=== PATIENT | male | born 1950 | race Hispanic/Latino ===

== ENCOUNTER 2020-06-24 22:31 | Inpatient (IN) | payer MEDICARE, MEDICAID, SELFPAY ==
--- NOTE | ~2020-06-24 | XR_ITS ---
EXAMINATION: XR chest 1V portable INDICATION: Midsternal chest pain and weakness TECHNIQUE: Portable AP chest at 2257 hours COMPARISON: 08/17/2017 FINDINGS: There are patchy opacities throughout the lungs, with a mid and lower lung zone predominanc e. The heart size is upper limits of normal for technique. No pleural effusion or pneumothorax is aroldo ntified. IMPRESSION: 1. Patchy bilateral opacities which could reflect pneumonia versus pulmonary edema. Reviewed, dictated and finalized at location A. IMPRESSION: 1. Patchy bilateral opacities which could reflect pneumonia versus pulmonary ed charlie.
[2020-06-24 22:34] VITALS: BP 126/89; PULSE 87; RESP 12; TEMP 36.6; O2SAT 100
--- NOTE | 2020-06-24 22:48 | ECG_ITS ---
Measurements Intervals [place] Rate: 79 P: 28 OH: 116 QRS: -64 QRSD: 90 T: 46 QT: 389 QTc: 448 Interpretive Statements SINUS RHYTHM WITH SHORT [place] INTERVAL LEFT AXIS DEVIATION INCOMPLETE RIGHT BUNDLE BRANCH BLOCK BASELINE ARTIFACT- I, II, III, AVR, AVL, AVF, V1-V6 BORDERLINE ECG Electronically Signed On 06-25-2020 6:39:53 CDT by Eron Suarez D.O.
[2020-06-24 23:13] LABS: Basophils Percent Auto 0.2 % (0.2-1.2); Eosinophils Absolute Auto 0.1 K/mm3 (0-0.3); Hematocrit 41.4 % (42.0-52.0); Hemoglobin 14.1 g/dL (14.0-18.0); Immature Granulocyte Absolute 0.02 K/mm3 (0.00-0.031); Immature Granulocyte Percent A 0.4 % (0-0.5); Immature Platelet Fraction Pct 8.1 % (0.9-11.2); Lymphocytes Absolute Auto 1.63 K/mm3 (0.9-3.2); Lymphocytes Percent Auto 31.7 % (18.3-44.2); Mean Corpuscular HGB Conc 34.1 g/dl (32-36); Mean Corpuscular Hemoglobin 33.3 pg (26-34); Mean Corpuscular Volume 97.6 fl (80-100); Mean Platelet Volume 10.9 fl (7.4-10.4); Monocytes Absolute Auto 0.6 K/mm3 (0.1-0.6); Monocytes Percent Auto 11.5 % (2.6-8.5); Neutrophils Absolute Auto 2.8 K/mm3 (1.3-6.7); Neutrophils Percent Auto 55.2 % (45.5-73.1); Platelet Count Result 109 k/mm3 (150-375); Red Blood Count 4.24 M/mm3 (4.6-6.20); Red Cell Distribution Width 12.4 % (11.5-14.5); White Blood Count 5.1 K/mm3 (4.5-10.0)
[2020-06-24 23:21] LABS: Prothrombin Time 13.8 Seconds (11.1-14.7)
[2020-06-24 23:22] LABS: Partial Thromboplastin Time 26.6 SECONDS (22.3-36.8)
[2020-06-24 23:26] LABS: Acetaminophen < 10 ug/mL (10-30); Ethanol 145 mg/dL (<10); Salicylate 3.1 mg/dL (2-20)
[2020-06-24 23:27] LABS: Alanine Aminotransferase 64 U/L (4-50); Albumin Level 4.4 g/dL (3.5-5.1); Alkaline Phosphatase 108 U/L (38-126); Anion Gap 7 mmol/L (8-16); Aspartate Amino Transferase 80 U/L (17-59); Bilirubin,Total 0.7 mg/dL (0.2-1.3); Blood Urea Nitrogen 16 mg/dL (9-20); Calcium 9.4 mg/dL (8.4-10.2); Carbon Dioxide 30 mmol/L (22-30); Chloride 104 mmol/L (98-107); Estimated Glomerular Filt Rate > 60; Glucose 99 mg/dL (75-110); Lipase 80 U/L (23-300); Potassium 4.1 mmol/L (3.4-5.0); Sodium 141 mmol/L (137-145)
[2020-06-24 23:39] LABS: NT Pro B Type Natriuretic Pept 102 pg/mL (5-100); Troponin I < 0.012 ng/mL (0.000-0.034)
[2020-06-24 23:58] LABS: Add Urine Microscopic? YES; Appearance Urine Cloudy (Clear); Bacteria Urine Trace /hpf; Bilirubin Urine Negative (Negative); Blood Urine Negative (Negative); Calcium Oxalate Crystals Urine Present /hpf; Color Urine Amber (Yellow); Glucose Urine UA Negative (Negative); Ketones Urine Negative (Negative); Leukocyte Esterase Ur 1+ LEU/UL (Negative); Mucus Urine Heavy /lpf; Nitrate Urine Negative (Negative); Protein Urine 1+ mg/dL (Negative); Specific Grav Ur 1.016 (1.001-1.035); Squamous Epithelial Cell Urine Rare /hpf (Few)
[2020-06-25] VITALS (12 sets, daily range): BP systolic 124–164; BP diastolic 84–101; PULSE 60–91; RESP 15–22; TEMP 36.5–36.8; O2SAT 95–100; BMI 22.4
[2020-06-25 00:16] LABS: Amphetamine Screen Urine Negative (Negative); Barbiturate Screen Urine Negative (Negative); Benzodiazepines Screen Urine Negative (Negative); Cannabinoid Screen Urine Positive (Negative); Cocaine Screen Urine Negative (Negative); Methadone Screen Urine Negative (Negative); Opiate Screen Urine Negative (Negative); Phencyclidine Screen Urine Negative (Negative)
--- NOTE | 2020-06-25 01:03 | ED.GENADULT ---
HPI - General Adult General Chief complaint: Chest Pain Stated complaint: chest pain Time Seen by Provider: 06/24/20 23:19 History of Present Illness HPI narrative: Patient 69-year-old gentleman who presents the emergency department with chief complaint of chest pain. The patient states that since about 8:00 tonight he started having discomfort in his chest. Patient states is not worsened by anything nor is it improved by anything patient states that he does have history of a heart attack before in the past states that he also was admitted to [place] about a month ago where he had the flu the patient states that he has had a cough since then that has been productive. Patient states that he also has been drinking today and states that he has been having thoughts of hurting himself. Patient states that he would use a firearm. Related Data Allergies Allergy/AdvReac Type Severity Reaction Status Date / Time No Known Allergies Allergy Mild Verified 08/17/17 19:00 Review of Systems Review of Systems: Narrative: A 10 system review of systems was completed on the patient and is negative except for what is stated in the HPI. Nursing and ancillary documentation was reviewed. PMFSH Social History Social History Gender identity (if verbalized by the patient): Male Comments Past medical history significant for cardiac disease, depression Social history the patient reports drinking alcohol Exam Narrative: Exam Narrative: GENERAL: Well-appearing, well-nourished, and in no acute distress. HEAD: Normocephalic, atraumatic. EYES: PERRLA and EOMI. ENT: Nares clear, no rhinorrhea or epistaxis. Mucous membranes moist. NECK: Supple. CHEST: Clear to auscultation. No respiratory distress. HEART: Regular rate and rhythm. No murmur heard. Normal peripheral pulses. ABDOMEN: Soft, nontender, nondistended, normal active bowel sounds. EXTREMITIES: Normal range of motion. No edema. SKIN: Warm, dry, no rash. NEURO: No focal deficits. Alert and oriented x3. PSYCH: Normal mood and affect. Course Course Emergency Course: Patient's case was discussed with the [place] transfer center and per Zach Bourgeois rn nursing supervisor sign shop the [place] does not currently have the resources capable of taking care of the patient tonight and recommended attempting to call for transfer at a later time The case was discussed with the hospitalist and they would like cefepime and doxycycline for potential healthcare associated pneumonia Vital Signs Vital signs: Vital Signs Temperature 36.6 C 06/24/20 22:34 Pulse Rate 87 06/24/20 22:34 Respiratory Rate 12 06/24/20 22:34 Blood Pressure 126/89 06/24/20 22:34 Pulse Oximetry 100 06/24/20 22:34 Temperature 36.6 C 06/24/20 22:34 Pulse Rate 66 06/25/20 00:26 Respiratory Rate 15 06/25/20 00:26 Blood Pressure 129/88 06/25/20 00:26 Pulse Oximetry 100 06/25/20 00:26 Medical Decision Making Vital Signs Vital Signs: Vital Signs Temperature 36.6 C 06/24/20 22:34 Pulse Rate 87 06/24/20 22:34 Respiratory Rate 12 06/24/20 22:34 Blood Pressure 126/89 06/24/20 22:34 Pulse Oximetry 100 06/24/20 22:34 Temperature 36.6 C 06/24/20 22:34 Pulse Rate 66 06/25/20 00:26 Respiratory Rate 15 06/25/20 00:26 Blood Pressure 129/88 06/25/20 00:26 Pulse Oximetry 100 06/25/20 00:26 Lab Data Result diagrams: 06/24/20 22:59 06/24/20 22:59 Labs: Lab Results 06/24/20 06/24/20 06/24/20 Range/Units 22:59 22:59 22:59 WBC 5.1 (4.5-10.0) K/mm3 RBC 4.24 L (4.6-6.20) M/mm3 Hgb 14.1 (14.0-18.0) g/dL Hct 41.4 L (42.0-52.0) % MCV 97.6 (80-100) fl MCH 33.3 (26-34) pg MCHC 34.1 (32-36) g/dl RDW 12.4 (11.5-14.5) % Plt Count 109 L (150-375) k/mm3 MPV 10.9 H (7.4-10.4) fl Immature Gran % (Auto) 0.4 (0-0.5) % Neut % (Auto) 55.2 (45.5-73.1) % Lymph % (Auto) 31.7 (18.3-44.2) % [place] % (Auto
--- NOTE | 2020-06-25 01:14 | PC.NURSE ---
Spoke with Alex[facility] at [facility]. Per Zach Bourgeois RN/Nursing Gear Tooth Lapping Machine Operator there is no bed with a sitter available.
[2020-06-25 02:13] LABS: Troponin I < 0.012 ng/mL (0.000-0.034)
[2020-06-25] MEDS: SODIUM CHLORIDE 0.9% IV 1,000 ML 125 ML IV CONT ×3 (02:31→18:29)
--- NOTE | 2020-06-25 03:15 | ADMIMU ---
This patient, Carlos Atkins, was admitted to IMU status, and placed in Intensive Care Unit-6 at 0310 on 06/25/20. Patient/family oriented to hospital policies and general routines including ID bracelet, bed and alarms, visiting hours, pain management, procedures, bathroom and other care routines, personal items, smoking policy, room service/diet, and visiting hours. Valuables list has been completed. Information on how to activate the Rapid Response Team has been discussed. Patient/Family are encouraged to report perceived risks to care and to ask questions if they do not understand what they are told or what they should do.
[2020-06-25 08:01] LABS: Troponin I < 0.012 ng/mL (0.000-0.034)
[2020-06-25] MEDS: ASPIRIN 81 MG CHEWABLE TABLET PO (08:38)
[2020-06-25] MEDS: SERTRALINE HCL 50 MG TABLET PO (09:50)
[2020-06-25] MEDS: busPIRone HCL 10 MG TABLET PO ×3 (09:50→17:22)
[2020-06-25] MEDS: CEFEPIME 0.5 GM in DEXTROSE 5% IN WATER 50 ML IVPB (13:26)
--- NOTE | 2020-06-25 16:12 | PM.IMHP ---
H&P: HPI History of Present Illness Date/Time: 06/25/20 16:12 patient is 69-year-old with history of coronary artery disease and history of alcohol abuse presented to emergency department with a complaint of chest pain patient 3 sets of cardiac enzymes are negative, there was no acute change on EKG myocardial infarction was ruled, patient also stated that he wants to commit suicide with fire arms, patient further states that he has history DT, the complaints chest pain and palpitation, will continue to monitor the patient will place the patient on on telemetry if remains clinically stable and there are no significant change in his telemetry chest x-ray showed patchy infiltrate suspect community-acquired pneumonia patient is being treated Rocephin azithromycin will continue, will continue to monitor patient watch for withdrawal and sign of any DT further recommendation to follow, patient had sitter with him. Chief Complaint: Chest pain and suicidal ideation Review of Systems Review of Systems: All systems reviewed & are unremarkable except as noted in HPI and below PMFSH Family History Family History (Updated 06/25/20 @ 03:45 by Guero Sanders RN) Other Unknown family medical history Social History Social History Smoking packs per day: 0.25 Smoking cigarettes per day: 5.0 Years smoked: 40 Smoking pack-years: 10.00 Smoking status: Current every day smoker Tobacco type: cigarettes Alcohol intake: current Drinks per week: 1 Substance use: current Substance use type: marijuana Gender identity (if verbalized by the patient): Male Sexual Orientation (if Verbalized by the Patient): Straight or Heterosexual Spiritual care concerns: No Meds Home Medications and Allergies Home Medications Medication Instructions Recorded Confirmed Type buspirone [BuSpar] 10 mg PO TID 06/25/20 06/25/20 History sertraline [Zoloft] 50 mg PO DAILY 06/25/20 06/25/20 History trazodone 100 mg PO HS PRN 06/25/20 06/25/20 History Allergies Allergy/AdvReac Type Severity Reaction Status Date / Time No Known Allergies Allergy Mild Verified 08/17/17 19:00 Vital Signs Vital Signs - 24 hr 06/24/20 22:34 06/25/20 00:26 06/25/20 02:10 Temperature 97.9 F Pulse Rate 87 66 91 Respiratory Rate 12 15 22 H Blood Pressure 126/89 129/88 124/84 Pulse Oximetry 100 100 96 06/25/20 03:16 06/25/20 03:52 06/25/20 04:00 Temperature 97.7 F Pulse Rate 78 76 81 Respiratory Rate 18 17 18 Blood Pressure 142/84 H Pulse Oximetry 97 97 97 06/25/20 04:05 06/25/20 06:00 06/25/20 08:00 Temperature 98.3 F Pulse Rate 88 69 Respiratory Rate 18 Blood Pressure 136/101 H Pulse Oximetry 99 98 06/25/20 08:35 06/25/20 12:00 Temperature Pulse Rate 69 Respiratory Rate Blood Pressure 151/97 H Pulse Oximetry Exam Narrative: Exam Narrative: Appears chronically ill older than his age Patient is comfortable, NAD HEENT: eyes are clear and none icteric LUNGS:CTA HEART: RR S1S2 ABD: BS+, Soft and nontender Lower extremities: no edema SKIN: nonjaundiced Neuro: grossly intact. H&P: Results Labs Labs: Short CBC 06/24/20 Range/Units 22:59 WBC 5.1 (4.5-10.0) K/mm3 Hgb 14.1 (14.0-18.0) g/dL Hct 41.4 L (42.0-52.0) % Plt Count 109 L (150-375) k/mm3 BMP 06/24/20 22:59 Sodium 141 Potassium 4.1 Chloride 104 Carbon Dioxide 30 BUN 16 Creatinine 0.80 Glucose 99 Calcium 9.4 Cardiac Enzymes 06/24/20 06/25/20 06/25/20 Range/Units 22:59 01:33 07:34 Troponin I < 0.012 < 0.012 < 0.012 (0.000-0.034) ng/mL Liver Function 06/24/20 Range/Units 22:59 Total Bilirubin 0.7 (0.2-1.3) mg/dL AST 80 H (17-59) U/L ALT 64 H (4-50) U/L Alkaline Phosphatase 108 (38-126) U/L Albumin 4.4 (3.5-5.1) g/dL Urine 06/24/20 Range/Units 23:37 Urine Color Lynnette (Yellow) Urine Appearance Cloudy H (Clear) Urine pH 5.0 (5.
[2020-06-25 20:07] LABS: SARS-CoV-2 RNA PCR Negative
[2020-06-26] VITALS: BP 136/87; PULSE 67; RESP 14; TEMP 36.9; O2SAT 94
[2020-06-26] MEDS: CEFEPIME 0.5 GM in DEXTROSE 5% IN WATER 50 ML IVPB ×2 (02:03→14:50)
[2020-06-26] MEDS: SODIUM CHLORIDE 0.9% IV 1,000 ML 125 ML IV CONT ×2 (02:03→12:46)
[2020-06-26 04:00] VITALS: PULSE 54
[2020-06-26 04:45] LABS: Basophils Percent Auto 0.3 % (0.2-1.2); Eosinophils Absolute Auto 0.1 K/mm3 (0-0.3); Eosinophils Percent Auto 2.6 % (0-4.4); Hematocrit 39.3 % (42.0-52.0); Hemoglobin 13.2 g/dL (14.0-18.0); Immature Granulocyte Absolute 0.02 K/mm3 (0.00-0.031); Immature Granulocyte Percent A 0.7 % (0-0.5); Immature Platelet Fraction Pct 9.1 % (0.9-11.2); Lymphocytes Absolute Auto 1.07 K/mm3 (0.9-3.2); Lymphocytes Percent Auto 34.9 % (18.3-44.2); Mean Corpuscular HGB Conc 33.6 g/dl (32-36); Mean Corpuscular Hemoglobin 32.2 pg (26-34); Mean Corpuscular Volume 95.9 fl (80-100); Mean Platelet Volume 10.7 fl (7.4-10.4); Monocytes Absolute Auto 0.4 K/mm3 (0.1-0.6); Monocytes Percent Auto 13.7 % (2.6-8.5); Neutrophils Absolute Auto 1.5 K/mm3 (1.3-6.7); Neutrophils Percent Auto 47.8 % (45.5-73.1); Platelet Count Result 76 k/mm3 (150-375); Red Cell Distribution Width 12.2 % (11.5-14.5); White Blood Count 3.1 K/mm3 (4.5-10.0)
[2020-06-26 05:14] LABS: Alanine Aminotransferase 48 U/L (4-50); Albumin Level 3.7 g/dL (3.5-5.1); Alkaline Phosphatase 83 U/L (38-126); Anion Gap 2 mmol/L (8-16); Aspartate Amino Transferase 59 U/L (17-59); Bilirubin,Total 1.1 mg/dL (0.2-1.3); Blood Urea Nitrogen 11 mg/dL (9-20); Calcium 9.2 mg/dL (8.4-10.2); Carbon Dioxide 32 mmol/L (22-30); Chloride 105 mmol/L (98-107); Estimated CRCL calculation 84 ml/min; Estimated Glomerular Filt Rate > 60; Glucose 116 mg/dL (75-110); Magnesium 1.6 mg/dL (1.6-2.3); Potassium 4.4 mmol/L (3.4-5.0); Sodium 139 mmol/L (137-145)
[2020-06-26 08:00] VITALS: BP 136/89; PULSE 55; PULSE 61; RESP 12; TEMP 36.8; O2SAT 100
[2020-06-26] MEDS: busPIRone HCL 10 MG TABLET PO ×3 (08:19→17:18)
[2020-06-26] MEDS: ASPIRIN 81 MG CHEWABLE TABLET PO (08:19)
[2020-06-26] MEDS: SERTRALINE HCL 50 MG TABLET PO (08:20)
[2020-06-26 12:00] VITALS: PULSE 56
--- NOTE | 2020-06-26 14:58 | PM.IMPN ---
Progress Note: A&P Assessment and Plan (1) Chest pain: Qualifiers: Chest pain type: unspecified Qualified Code(s): R07.9 - Chest pain, unspecified Code(s): R07.9 - Chest pain, unspecified Status: Acute (2) Pneumonia: Qualifiers: Laterality: unspecified laterality Lung location: unspecified part of lung Pneumonia type: due to unspecified organism Qualified Code(s): J18.9 - Pneumonia, unspecified organism Code(s): J18.9 - Pneumonia, unspecified organism Status: Acute (3) Suicidal ideation: Code(s): R45.851 - Suicidal ideations Status: Acute (4) 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 combat: Code(s): F43.12 - Post-traumatic stress disorder, chronic Status: Acute Additional Plan 06/25/20 16:12 patient is 69-year-old with history of coronary artery disease and history of alcohol abuse presented to emergency department with a complaint of chest pain patient 3 sets of cardiac enzymes are negative, there was no acute change on EKG myocardial infarction was ruled, patient also stated that he wants to commit suicide with fire arms, patient further states that he has history DT, the complaints chest pain and palpitation, will continue to monitor the patient will place the patient on on telemetry if remains clinically stable and there are no significant change in his telemetry chest x-ray showed patchy infiltrate suspect community-acquired pneumonia patient is being treated Rocephin azithromycin will continue, will continue to monitor patient watch for withdrawal and sign of any DT further recommendation to follow, patient had sitter with him. Possible community-acquired pneumonia will continue Rocephin and azithromycin, however patient does not have fever and white counts are not elevated if the blood culture does not show any growth, is no fever, in 72 hours will stop antibiotic. Patient has a sitter once clinically stable will have a crisis team evaluate the patient and further recommendation to follow 06/26/20 acute CP resolved, troponin negative, remains on abx, no fever, no leukocytosis , [facility] pending eval by crisis team in am Time Spent With Patient Time with patient: 25 - 35 minutes Subjective Date/time seen: 06/26/20 14:58 Patient doing okay. His primary complaints are secondary to his PTSD. He reports chest pain and vivid dreams at night. He wakes up with his heart racing. Patient previously was on Zyprexa and trazodone but he is no longer on those medications. He does report to those medications did help prior to [facility] the [facility]. He has been in multiple [facility] programs through [facility] for both [facility] and substance abuse. At the time of my interview he denies any active complaints. Exam Narrative: Exam Narrative: GEN: comfortable, NAD Appears chronically ill older than his age HEENT: eyes are clear and none icteric, EOMI LUNGS:CTA HEART: RR S1S2 ABD: BS+, Soft and nontender Lower extremities: no edema SKIN: nonjaundiced Neuro: grossly intact. Objective Data Vital Signs Vital Signs: Vital Signs - 24 hr 06/25/20 16:00 06/25/20 20:00 06/26/20 00:00 Temperature 98.2 F 98.5 F Pulse Rate 63 60 67 Respiratory Rate 19 14 Blood Pressure 164/95 H 136/87 Pulse Oximetry 99 95 94 06/26/20 04:00 06/26/20 08:00 06/26/20 12:00 Temperature 98.3 F Pulse Rate 54 L 55 L 56 L Respiratory Rate 12 Blood Pressure 136/89 Pulse Oximetry 100 Intake/Output Intake/Output: Intake & Output 06/23/20 06/24/20 06/25/20 06/26/20 23:59 23:59 23:59 23:59 Intake Total 3500 3070 Output Total 900 2350 Balance 2600 720 Meds/Results Medications: Active Medications Generic Name Dose Route Start Last Admin Trade Name Idalmis PRN Reason Stop Dose Admin Aspirin 81 mg 06/25/20 08:00 06/26/20 08:19 Aspirin 81 Mg Chewable Tablet PO 81 mg
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
[2020-06-26 16:00] VITALS: BP 137/88; PULSE 62; PULSE 63; RESP 18; TEMP 37; O2SAT 98
--- NOTE | 2020-06-26 17:57 | PC.NURSE ---
Pt transferred to [facility] room 659 in [facility] via Ambulance. Report called to MARY Chaparro @ [phone]. Belongings sent with patient. Report given to [facility]
== END 2020-06-26 18:00 | disposition short-term general hospital (02) | DRG 194 ==
LOC: ANHED 06-25 01:59 → ANHICU 06-25 02:47
PROVIDERS: Family Medicine; Admitting Provider Internal Medicine; Emergency Provider Emergency Medicine; Visit Provider Hospitalist
DX: J18.9 Pneumonia, unspecified organism (principal); R45.851 Suicidal ideations; F43.12 Post-traumatic stress disorder, chronic; Y37.90XS Military operations, unspecified, sequela; Z20.822 Contact with and (suspected) exposure to COVID-19; R07.9 Chest pain, unspecified; I25.10 Atherosclerotic heart disease of native coronary artery without angina pectoris; F17.210 Nicotine dependence, cigarettes, uncomplicated; F10.10 Alcohol abuse, uncomplicated; Z79.899 Other long term (current) drug therapy
CPT/HCPCS: 36415; 71045; 80053; 80307; 81001; 83690; 83735; 83880; 84443; 84484; 85025; 85055; 85610; 85730; 87040; 87086; 87088; 93005; 96361; 96365; 96366; 96375; 99285; A9270; C9803; G0378; J0692; J7030; U0003; U0005

== ENCOUNTER 2020-10-05 00:57 | Emergency (ER) | payer MEDICARE, MEDICAID, SELFPAY ==
--- NOTE | ~2020-10-05 | CT_ITS ---
EXAMINATION: CT brain wo con DATE: 10/05/2020 01:28 INDICATION: Dizziness, weakness and slurred speech. TECHNIQUE: Computed tomography (CT) of the head was performed without intravenous contrast. Sagittal and coronal reconstructions were performed. The mA was adjusted according to patient size. Iterative reconstruction technique was employed. The dose-length product was 605.33 mGy-cm. COMPARISON: head CT dated 08/17/2017 FINDINGS: Unchanged region of encephalomalacia in the inferomedial aspect of the anterior left frontal lobe con sistent with sequela of old infarct or trauma. No acute intracranial hemorrhage or acute infarction. There is moderate scattered white matter hypoattenuation consistent with chronic small vessel ischemi c disease. Symmetric prominence of the sulci consistent with moderate age-appropriate diffuse cerebra l volume loss. Ventricles are normal and symmetric. Again seen is an extra-axial mass lesion arising along the rotating the inner table of the left occipital bone. The lesion is unchanged in size measur ing 3.0 cm in diameter and up to 1.5 cm in thickness. No other mass/mass effect. Mild mucosal thicken ing the bilateral ethmoid sinuses. The orbits and mastoid air cells are normal. Intracranial calcifie d cerebral atherosclerosis is noted. IMPRESSION: 1. No acute intracranial process. 2. Stable appearance of a 3.0 x 3.0 x 1.5 cm Extra-axial left occipital mass which appears to rise fr om an erosion at the inner table of the left occipital bone which given 3 views of stability is most likely benign with differential including hemangioma, large arachnoid granulation or venous agudelo. 3. Stable appearance of a moderate-sized region of chronic encephalomalacia at the anterior left fron jovanna lobe which could represent sequela of old infarct or trauma. 4. Age-related changes including moderate diffuse on loss and moderate scattered white matter hypoatt enuation consistent with chronic small vessel ischemic disease. Reviewed, dictated and finalized at location A. IMPRESSION: 1. No acute intracranial process. 2. Stable appearance of a 3.0 x 3.0 x 1.5 cm Extra-axial left occipital mass wh ich appears to rise from an erosion at the inner table of the left occipital yann ne which given 3 views of stability is most likely benign with differential inc luding hemangioma, large arachnoid granulation or venous agudelo. 3. Stable appearance of a moderate-sized region of chronic encephalomalacia at the anterior left frontal lobe which could represent sequela of old infarct or trauma. 4. Age-related changes including moderate diffuse on loss and moderate scattere d white matter hypoattenuation consistent with chronic small vessel ischemic di sease.
--- NOTE | ~2020-10-05 | XR_ITS ---
EXAMINATION: XR chest 1V DATE: 10/05/2020 01:31 INDICATION: Weakness TECHNIQUE: frontal view of the chest was obtained. COMPARISON: Chest radiograph dated 06/24/2020 and 08/17/2017 FINDINGS: Small lung volumes particularly on the right where there is chronic mild elevation of the right hemid iaphragm. A few calcified pulmonary nodules in the right perihilar region consistent with old granulo matous disease. No other airspace opacities, pulmonary edema, pleural effusion or pneumothorax. The c ardiomediastinal silhouette is normal. Mild to moderate degenerative skeletal changes in the spine an d at the bilateral shoulders. IMPRESSION: 1. No acute cardiopulmonary disease. Reviewed, dictated and finalized at location A.
--- NOTE | 2020-10-05 01:03 | ECG_ITS ---
Measurements Intervals [place] Rate: 86 P: 27 OH: 118 QRS: 10 QRSD: 98 T: 42 QT: 380 QTc: 457 Interpretive Statements SINUS RHYTHM WITH SHORT [place] INTERVAL VENTRICULAR PREMATURE COMPLEX BASELINE ARTIFACT- II, III, AVF, V1, V3-V6 BORDERLINE ECG Electronically Signed On 10-05-2020 7:02:55 CDT by Eron Suarez D.O.
[2020-10-05 01:05] VITALS: BP 108/71; PULSE 84; RESP 14; TEMP 36.4; O2SAT 95
[2020-10-05 01:17] VITALS: BP 107/76; PULSE 81; RESP 13
[2020-10-05 01:17] LABS: Glucose Point of Care 94 mg/dl (65-105)
--- NOTE | 2020-10-05 01:19 | PC.NURSE ---
Pt to CT scan via stretcher.
--- NOTE | 2020-10-05 01:53 | ED.GENADULT ---
HPI - General Adult General Chief complaint: Psychiatric Symptoms <DO Nancy Ji Last Filed: 10/05/20 07:12> Stated complaint: chest pain <DO Nancy Ji Last Filed: 10/05/20 07:12> Time Seen by Provider: 10/05/20 01:19 <DO Nancy Ji Last Filed: 10/05/20 07:12> Source: RN notes reviewed <DO Nancy Ji Last Filed: 10/05/20 07:12> History of Present Illness HPI narrative: Patient presents emergency department from home for multiple complaints. Patient states he has been having some midsternal chest pain throughout the day today states the pain does not radiate described as a pressure patient also notes that he has been having numbness in his bilateral legs and has been feeling generally weak and tired he denies any fevers or chills vision changes shortness of breath abdominal pain nausea vomiting or any other symptoms <DO Nancy Ji Last Filed: 10/05/20 07:12> Related Data Home medications: Home Medications Medication Instructions Recorded Confirmed buspirone [BuSpar] 10 mg PO TID 06/25/20 06/25/20 sertraline [Zoloft] 50 mg PO DAILY 06/25/20 06/25/20 trazodone 100 mg PO HS PRN 06/25/20 06/25/20 <DO Nancy Ji Last Filed: 10/05/20 07:12> Allergies/adverse reactions: Allergies Allergy/AdvReac Type Severity Reaction Status Date / Time No Known Allergies Allergy Mild Verified 08/17/17 19:00 <DO Nancy Ji Last Filed: 10/05/20 07:12> Review of Systems Review of Systems: Gen.: Denies fevers or chills Eyes: Denies eye pain or visual change ENT: Denies congestion Respiratory: Denies shortness of breath or cough CV: Reports chest GI: Denies abdominal pain nausea, emesis or diarrhea denies burning, urgency, frequency or hematuria Musculoskeletal: Denies back pain or muscle pain Neuro: Reports general weakness Skin: Denies rash Except as documented, all other systems reviewed and negative <DO Nancy Ji Last Filed: 10/05/20 07:12> [facility] Past Medical History Medical History: Medical History (Updated 10/05/20 @ 18:15 by Ayanna Khan MD) Depression <Tarun Ascencio DO - Last Filed: 10/05/20 07:12> Family History Family History: Family History (Updated 06/25/20 @ 03:45 by Guero Sanders RN) Other Unknown family medical history <Tarun Ascencio DO - Last Filed: 10/05/20 07:12> Social History Social History: Social History Smoking packs per day: 0.25 Smoking cigarettes per day: 5.0 Years smoked: 40 Smoking pack-years: 10.00 Smoking status: Current every day smoker Tobacco type: cigarettes Alcohol intake: current Drinks per week: 1 Substance use: current Substance use type: does not use Gender identity (if verbalized by the patient): Male Sexual Orientation (if Verbalized by the Patient): Straight or Heterosexual Spiritual care concerns: No <Tarun Ascencio DO - Last Filed: 10/05/20 07:12> Exam Narrative: APPEARANCE: No acute distress, nontoxic, resting in bed EYES: EOMI HEENT: Normocephalic, atraumatic, OMM RESPIRATORY: No respiratory distress Clear to auscultation bilaterally with no rhonchi wheezing or rales. CARDIOVASCULAR: Regular rate and rhythm without murmurs rubs or gallops. ABDOMINAL: Soft, nontender, nondistended, no rebound or guarding MUSCULOSKELETAl: Moves all extremities. No clubbing, cyanosis or edema. NEURO: Awake and alert x 4. Following commands, mild slurred speech, muscle strength 5 out of 5 bilateral upper and lower extremities SKIN:: Warm, dry. No rashes lesions or abrasions PSYCHIATRIC: Normal affect/mood, <Tarun Ascencio DO - Last Filed: 10/05/20 07:12> Course Course Emergency Course: After initial exam the patient is now stating that he has been having suicidal ideation states he was drinking beer today and states he has been culver
[2020-10-05 01:55] LABS: Basophils Percent Auto 0.2 % (0.2-1.2); Eosinophils Percent Auto 0.3 % (0-4.4); Hematocrit 38.5 % (42.0-52.0); Hemoglobin 12.9 g/dL (14.0-18.0); Immature Granulocyte Absolute 0.03 K/mm3 (0.00-0.031); Immature Granulocyte Percent A 0.3 % (0-0.5); Lymphocytes Absolute Auto 2.41 K/mm3 (0.9-3.2); Lymphocytes Percent Auto 24.8 % (18.3-44.2); Mean Corpuscular HGB Conc 33.5 g/dl (32-36); Mean Corpuscular Hemoglobin 30.9 pg (26-34); Mean Corpuscular Volume 92.3 fl (80-100); Mean Platelet Volume 11.6 fl (7.4-10.4); Monocytes Absolute Auto 0.8 K/mm3 (0.1-0.6); Monocytes Percent Auto 8.4 % (2.6-8.5); Neutrophils Absolute Auto 6.4 K/mm3 (1.3-6.7); Platelet Count Result 156 k/mm3 (150-375); Red Blood Count 4.17 M/mm3 (4.6-6.20); Red Cell Distribution Width 12.4 % (11.5-14.5); White Blood Count 9.7 K/mm3 (4.5-10.0)
[2020-10-05 02:10] LABS: Prothrombin Time 12.8 Seconds (11.1-14.7)
[2020-10-05 02:27] VITALS: BP 102/67; PULSE 80; RESP 16; O2SAT 97
[2020-10-05 02:31] LABS: Alanine Aminotransferase 63 U/L (4-50); Albumin Level 4.1 g/dL (3.5-5.1); Alkaline Phosphatase 99 U/L (38-126); Anion Gap 11 mmol/L (8-16); Aspartate Amino Transferase 53 U/L (17-59); Bilirubin,Total 0.5 mg/dL (0.2-1.3); Blood Urea Nitrogen 20 mg/dL (9-20); Calcium 8.7 mg/dL (8.4-10.2); Carbon Dioxide 24 mmol/L (22-30); Chloride 100 mmol/L (98-107); Estimated CRCL calculation 61 ml/min; Estimated Glomerular Filt Rate > 60; Glucose 96 mg/dL (65-110); Sodium 135 mmol/L (137-145)
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
[2020-10-05 02:34] LABS: Ethanol 182 mg/dL (<10)
[2020-10-05 02:42] LABS: Troponin I < 0.012 ng/mL (0.000-0.034)
[2020-10-05 03:20] LABS: Add Urine Microscopic? NO; Appearance Urine Clear (Clear); Bilirubin Urine Negative (Negative); Blood Urine Negative (Negative); Color Urine Yellow (Yellow); Glucose Urine UA Negative (Negative); Ketones Urine Negative (Negative); Leukocyte Esterase Ur Negative LEU/UL (Negative); Nitrate Urine Negative (Negative); Protein Urine Negative (Negative); Specific Grav Ur 1.013 (1.001-1.035); Urobilinogen Urine Negative mg/dL (<2.0)
[2020-10-05 03:29] LABS: Thyroid Stimulating Hormone 0.594 uIU/mL (0.465-4.680)
[2020-10-05 03:36] LABS: Amphetamine Screen Urine Negative (Negative); Barbiturate Screen Urine Negative (Negative); Benzodiazepines Screen Urine Negative (Negative); Cannabinoid Screen Urine Negative (Negative); Cocaine Screen Urine Negative (Negative); Methadone Screen Urine Negative (Negative); Opiate Screen Urine Negative (Negative); Phencyclidine Screen Urine Negative (Negative)
[2020-10-05 03:54] LABS: EDCOVIDSCREEN Negative (Negative)
[2020-10-05 07:43] LABS: Ethanol 93 mg/dL (<10)
[2020-10-05 07:55] LABS: Troponin I < 0.012 ng/mL (0.000-0.034)
--- NOTE | 2020-10-05 07:58 | PC.NURSE ---
This RN into pts room to introduce myself. Pt just staring at this RN not answering any questions.
[2020-10-05 09:41] LABS: Ethanol 46 mg/dL (<10)
--- NOTE | 2020-10-05 10:42 | PC.NURSE ---
Pt is no risk now on [place] scale. Informed charge nurse of this. Sitter is no longer needed. Pt requested a lunch tray.
[2020-10-05 12:00] VITALS: BP 118/79; PULSE 95; RESP 18; TEMP 36.7; O2SAT 96
--- NOTE | 2020-10-05 16:20 | PC.NURSE ---
[facility] Hotline contacted for this patient and a referral was placed. Patient provided his sister's phone numbers for contact and He was informed that she should receive a call from them on Wednesday. site worker is also evaluating and working with patient at this time.
[2020-10-05 19:47] VITALS: BP 115/73; PULSE 89; RESP 16; TEMP 36.3; O2SAT 98
== END 2020-10-05 19:50 | disposition home or self-care (01) ==
PROVIDERS: Emergency Medicine; Emergency Provider General Practice
DX: R07.89 Other chest pain (principal); F32.9 Major depressive disorder, single episode, unspecified; Z20.822 Contact with and (suspected) exposure to COVID-19; F17.210 Nicotine dependence, cigarettes, uncomplicated; Z79.899 Other long term (current) drug therapy; I49.3 Ventricular premature depolarization
CPT/HCPCS: 36415; 70450; 71045; 80053; 80307; 81003; 82948; 84443; 84484; 85025; 85610; 85730; 87426; 93005; 99284; C9803

== ENCOUNTER 2020-10-06 12:31 | Emergency (ER) | payer MEDICARE, MEDICAID, SELFPAY ==
--- NOTE | ~2020-10-06 | CT_ITS ---
EXAMINATION: CT cervical spine wo con DATE: 10/06/2020 13:27 INDICATION: Neck pain post fall with head injury TECHNIQUE: Computed tomography (CT) of the cervical spine was performed without intravenous contrast. Automated exposure control and iterative reconstruction technique were employed. The dose-length pro duct was 449.09 mGy-cm. COMPARISON: None FINDINGS: Moderate osteoarthritis at the atlantoaxial articulation. Straightening of the normal cervical lordos is. Vertebral body heights are normal. No fracture. There are prominent anterior endplate osteophytes throughout the mid to lower cervical spine with solid osseous bridging at C5-C7. Moderate disc heigh t loss at C6-C7 and mild disc height loss at C3-C4 and C5-C6. Mild central canal stenosis resulting f rom a small disc bulge at C3-C4 and a small posterior disc osteophyte complex at C6-C7. Multilevel bi lateral cervical facet osteoarthritis, moderate severity on the left at C4-C5 and otherwise mild. No foraminal stenosis, moderate severity on the left at C3-C4 and mild at multiple additional levels on both the left and right. The visualized airway and apices of the lungs are clear. IMPRESSION: 1. Stable appearance of moderate cervical spondylosis. No acute osseous abnormality. Reviewed, dictated and finalized at location A. IMPRESSION: 1. Stable appearance of moderate cervical spondylosis. No acute osseous abnorma lity.
--- NOTE | ~2020-10-06 | CT_ITS ---
EXAMINATION: CT brain wo con DATE: 10/06/2020 13:26 INDICATION: Head injury TECHNIQUE: Computed tomography (CT) of the head was performed without intravenous contrast. Sagittal and coronal reconstructions were performed. The mA was adjusted according to patient size. Iterative reconstruction technique was employed. The dose-length product was 832.33 mGy-cm. COMPARISON: head CT dated FINDINGS: No fracture. Unchanged moderate sized region of encephalomalacia in the inferomedial aspect of the an terior left frontal lobe consistent with sequela of old infarct or trauma. No acute intracranial hemo rrhage or acute infarction. There is moderate scattered white matter hypoattenuation consistent with chronic small vessel ischemic disease. Symmetric prominence of the sulci consistent with moderate age -appropriate diffuse cerebral volume loss. Ventricles are normal and symmetric. Again seen is an extr a-axial mass lesion arising along the rotating the inner table of the left occipital bone. The lesion is unchanged in size measuring 3.0 cm in diameter and up to 1.5 cm in thickness. No other mass/mass effect. Mild mucosal thickening the bilateral ethmoid sinuses. The orbits and mastoid air cells are n ormal. Intracranial calcified cerebral atherosclerosis is noted. IMPRESSION: 1. No fracture or acute intracranial process. 2. Stable appearance of a 3.0 x 3.0 x 1.5 cm extra-axial left occipital mass which appears to rise fr om an erosion at the inner table of the left occipital bone which given 3 views of stability is most likely benign with differential including hemangioma, large arachnoid granulation or venous agudelo. 3. Stable appearance of a moderate-sized region of chronic encephalomalacia at the anterior left fron jovanna lobe which could represent sequela of old infarct or trauma. 4. Age-related changes including moderate diffuse on loss and moderate scattered white matter hypoatt enuation consistent with chronic small vessel ischemic disease. Reviewed, dictated and finalized at location A. IMPRESSION: 1. No fracture or acute intracranial process. 2. Stable appearance of a 3.0 x 3.0 x 1.5 cm extra-axial left occipital mass wh ich appears to rise from an erosion at the inner table of the left occipital yann ne which given 3 views of stability is most likely benign with differential inc luding hemangioma, large arachnoid granulation or venous agudelo. 3. Stable appearance of a moderate-sized region of chronic encephalomalacia at the anterior left frontal lobe which could represent sequela of old infarct or trauma. 4. Age-related changes including moderate diffuse on loss and moderate scattere d white matter hypoattenuation consistent with chronic small vessel ischemic di sease.
[2020-10-06 12:37] VITALS: BP 104/84; PULSE 85; RESP 18; TEMP 36.7; O2SAT 94
--- NOTE | 2020-10-06 13:03 | ED.FALL ---
HPI - Fall General Chief Complaint: Fall Stated Complaint: fall, head inj, ETOH Time Seen by Provider: 10/06/20 12:39 Source: patient Mode of arrival: EMS Limitations: intoxication History of Present Illness HPI Narrative: Patient is a 70-year-old male brought in by EMS due to head injury, laceration the right frontal head after a fall at home. Patient admits to drinking alcohol today. Patient was seen here yesterday for alcoholic intoxication, was discharge last night. Patient admits to drinking alcohol today. Related Data Home Medications Medication Instructions Recorded Confirmed buspirone [BuSpar] 10 mg PO TID 06/25/20 06/25/20 sertraline [Zoloft] 50 mg PO DAILY 06/25/20 06/25/20 trazodone 100 mg PO HS PRN 06/25/20 06/25/20 Allergies Allergy/AdvReac Type Severity Reaction Status Date / Time No Known Allergies Allergy Mild Verified 08/17/17 19:00 Review of Systems Review of Systems: All systems reviewed & are unremarkable except as noted in HPI and below Constitutional: Constitutional: Denies body ache(s), Denies chills, Denies excessive sweating, Denies fatigue, Denies fever(s), Denies headache(s), Denies lethargy, Denies malaise, Denies weakness and Denies weight loss Eyes: Eyes: Denies blurry vision, Denies change in vision and Denies loss of vision ENT: Denies dizziness, Denies ear discharge, Denies headache(s), Denies lip swelling, Denies epistaxis, Denies nasal congestion, Denies neck pain, Denies throat swelling and Denies tongue swelling Cardiovascular: Cardiovascular: Denies chest pain, Denies chest pain at rest, Denies chest pain with activity, Denies diaphoresis, Denies rapid heart rate, Denies edema, Denies irregular heart rhythm, Denies lightheadedness, Denies palpitations, Denies dyspnea and Denies dyspnea on exertion Respiratory: Respiratory: Denies chest congestion, Denies cough, Denies hemoptysis, Denies dyspnea and Denies dyspnea on exertion Gastrointestinal: Gastrointestinal: Denies abdominal pain, Denies melena, Denies hematochezia, Denies diarrhea, Denies nausea, Denies vomiting and Denies hematemesis Musculoskeletal: Musculoskeletal: Denies abnormal gait, Denies deformity, Denies joint swelling, Denies limited range of motion, Denies neck pain and Denies numbness Neurologic: Denies confusion, Denies dizziness, Denies headache(s), Denies focal weakness, Denies loss of vision, Denies numbness, Denies Other visual disturbances, Denies Sensory deficit (Neuro) and Denies weakness Psychiatric: Psychiatric: Denies confusion, Denies depression, Denies auditory hallucinations, Denies homicidal ideation and Denies suicidal ideation Endocrine: Endocrine: Denies cold intolerance, Denies excessive sweating, Denies fatigue, Denies heat intolerance and Denies palpitations Hematologic/Lymphatic: Hematologic/Lymphatic: Denies easy bleeding and Denies easy bruising Allergic/Immunologic: Allergic/Immunologic: Denies lip swelling, Denies throat swelling and Denies tongue swelling PMFSH Past Medical History Medical History Depression Family History Family History Other Unknown family medical history Social History Social History Smoking packs per day: 0.25 Smoking cigarettes per day: 5.0 Years smoked: 40 Smoking pack-years: 10.00 Smoking status: Current every day smoker Tobacco type: cigarettes Alcohol intake: current Drinks per week: 1 Substance use: current Substance use type: does not use Gender identity (if verbalized by the patient): Male Sexual Orientation (if Verbalized by the Patient): Straight or Heterosexual Spiritual care concerns: No Comments Past medical history: Unknown, patient states he does not have any medical problems Family history: Unknown Social history: Positive for smoker, daily alcohol us
[2020-10-06 14:00] VITALS: BP 93/55; PULSE 72; RESP 18; O2SAT 100
--- NOTE | 2020-10-06 14:06 | PC.NURSE ---
Called to give report on pt. Spoke with Feli and was told that the nurse getting pt was off the floor and will call me back.
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
== END 2020-10-06 17:24 | disposition left against medical advice (07) ==
PROVIDERS: Emergency Provider Emergency Medicine
DX: S01.81XA Laceration without foreign body of other part of head, initial encounter (principal); F10.10 Alcohol abuse, uncomplicated; F17.210 Nicotine dependence, cigarettes, uncomplicated; Y90.9 Presence of alcohol in blood, level not specified; W10.1XXA Fall (on)(from) sidewalk curb, initial encounter
CPT/HCPCS: 12002; 70450; 72125; 99284

== ENCOUNTER 2020-11-28 18:44 | Emergency (ER) | payer MEDICARE, MEDICAID, SELFPAY ==
--- NOTE | 2020-11-28 18:53 | ECG_ITS ---
Measurements Intervals [place] Rate: 81 P: 55 MT: 129 QRS: 40 QRSD: 87 T: 68 QT: 385 QTc: 448 Interpretive Statements SINUS RHYTHM NORMAL ECG Electronically Signed On 11-28-2020 20:04:39 CDT by Eron Suarez D.O.
[2020-11-28 19:13] VITALS: BP 106/60; PULSE 90; RESP 16; TEMP 36.4; O2SAT 97
--- NOTE | 2020-11-28 20:13 | PC.NURSE ---
pt left after triage, not wanting to stay and wait in room. pt encouraged to stay. pt refused. asked to return if need be for evaluation and treatment
== END 2020-11-28 20:13 | disposition left against medical advice (07) ==
LOC: ANHED 20:42
DX: R07.9 Chest pain, unspecified (principal)
CPT/HCPCS: 93005; 99199

== ENCOUNTER 2020-11-30 15:07 | Observation (INO) | payer MEDICARE, OTHER, MEDICAID, SELFPAY ==
[2020-11-30] VITALS (9 sets, daily range): BP systolic 110–132; BP diastolic 65–80; PULSE 70–91; RESP 16–25; TEMP 36.6–36.9; O2SAT 95–99; BMI 24.2
--- NOTE | ~2020-11-30 | XR_ITS ---
XR chest 2V DATE: 11/30/2020 15:39 INDICATION: Chest pain. History of heart murmur. TECHNIQUE: AP and lateral views COMPARISON: 09/27/2020 AP chest FINDINGS: Heart size appears at upper limits of normal. No pulmonary infiltrate or consolidation, ple ural effusion or pulmonary vascular congestion or pneumothorax is evident. IMPRESSION: No active disease Reviewed, dictated and finalized at location A. IMPRESSION: No active disease
--- NOTE | ~2020-11-30 | NM_ITS ---
EXAMINATION: NM edda stress w perfusion DATE: 12/02/2020 12:01 INDICATION: Chest pain. TECHNIQUE: Rest images were obtained following intravenous administration of 11.4 mCi Tc99m tetrofosm in (Myoview). The patient was infused intravenously with Lexiscan (regadenoson). Then, 31.6 mCi Tc99m tetrofosmin (Myoview) was administered intravenously, and stress images were obtained. Data was bernardo nstructed into short axis and horizontal and vertical long axis SPECT images. Gated SPECT images were also obtained. COMPARISON: None. FINDINGS: There is no definite reversible or fixed perfusion abnormality to suggest ischemia or infar ction. There is no segmental wall motion abnormality. Left ventricular ejection fraction measures > 70%. IMPRESSION: 1. No definite ischemia or infarct. 2. Normal left ventricular ejection fraction measuring >70%. Reviewed, dictated and finalized at location A.
--- NOTE | 2020-11-30 15:08 | ECG_ITS ---
Measurements Intervals [place] Rate: 74 P: 38 MO: 133 QRS: 22 QRSD: 90 T: 51 QT: 410 QTc: 456 Interpretive Statements SINUS RHYTHM ATRIAL PREMATURE COMPLEX BASELINE WANDER- III, AVR, AVL, AVF BORDERLINE ECG Electronically Signed On 12-04-2020 8:51:59 CDT by Eron Suarez D.O.
--- NOTE | 2020-11-30 15:23 | ED.CHESTPAIN ---
HPI - Chest Pain General Chief Complaint: Chest Pain Stated Complaint: CP Time Seen by Provider: 11/30/20 15:19 Source: patient Mode of arrival: EMS Limitations: no limitations History of Present Illness HPI narrative: Patient is a 70-year-old male complaining of chest pain, midsternal, tightness, 6 out of 10, radiating to back started today. Patient denies any shortness of breath, abdominal pain, nausea, vomiting, diaphoresis, fever or chills. Related Data Home Medications Medication Instructions Recorded Confirmed buspirone [BuSpar] 10 mg PO TID 06/25/20 06/25/20 sertraline [Zoloft] 50 mg PO DAILY 06/25/20 06/25/20 trazodone 100 mg PO HS PRN 06/25/20 06/25/20 Allergies Allergy/AdvReac Type Severity Reaction Status Date / Time No Known Allergies Allergy Mild Verified 08/17/17 19:00 Review of Systems Review of Systems: All systems reviewed & are unremarkable except as noted in HPI and below Constitutional: Constitutional: Denies body ache(s), Denies chills, Denies excessive sweating, Denies fatigue, Denies fever(s), Denies headache(s), Denies lethargy, Denies malaise, Denies weakness and Denies weight loss Eyes: Eyes: Denies blurry vision, Denies change in vision and Denies loss of vision ENT: Denies dizziness, Denies ear discharge, Denies headache(s), Denies lip swelling, Denies epistaxis, Denies nasal congestion, Denies neck pain, Denies throat swelling and Denies tongue swelling Cardiovascular: Cardiovascular: Denies chest pain with activity, Denies diaphoresis, Denies rapid heart rate, Denies edema, Denies irregular heart rhythm, Denies lightheadedness, Denies palpitations, Denies dyspnea and Denies dyspnea on exertion Respiratory: Respiratory: Denies chest congestion, Denies cough, Denies hemoptysis, Denies dyspnea and Denies dyspnea on exertion Gastrointestinal: Gastrointestinal: Denies abdominal pain, Denies melena, Denies hematochezia, Denies diarrhea, Denies nausea, Denies vomiting and Denies hematemesis Musculoskeletal: Musculoskeletal: Denies abnormal gait, Denies deformity, Denies joint swelling, Denies limited range of motion, Denies neck pain and Denies numbness Neurologic: Denies Abnormal speech present, Denies abnormal gait, Denies confusion, Denies dizziness, Denies headache(s), Denies focal weakness, Denies loss of vision, Denies numbness, Denies Other visual disturbances, Denies Sensory deficit (Neuro) and Denies weakness Psychiatric: Psychiatric: Denies confusion, Denies depression, Denies auditory hallucinations, Denies homicidal ideation and Denies suicidal ideation Endocrine: Endocrine: Denies cold intolerance, Denies excessive sweating, Denies fatigue, Denies heat intolerance and Denies palpitations Hematologic/Lymphatic: Hematologic/Lymphatic: Denies easy bleeding and Denies easy bruising Allergic/Immunologic: Allergic/Immunologic: Denies lip swelling, Denies throat swelling and Denies tongue swelling PMFSH Past Medical History Medical History Depression Family History Family History Other Unknown family medical history Social History Social History Smoking packs per day: 0.25 Smoking cigarettes per day: 5.0 Years smoked: 40 Smoking pack-years: 10.00 Smoking status: Current every day smoker Tobacco type: cigarettes Alcohol intake: current Drinks per week: 1 Substance use: current Substance use type: does not use Gender identity (if verbalized by the patient): Male Sexual Orientation (if Verbalized by the Patient): Straight or Heterosexual Spiritual care concerns: No Exam Const: General: cooperative, healthy appearing, comfortable, no acute distress, well developed, alert and awake; No confusion Orientation/consciousness: oriented to person, oriented to place, oriented to time, patient oriente
[2020-11-30 15:37] LABS: Basophils Percent Auto 0.3 % (0.2-1.2); Eosinophils Percent Auto 0.8 % (0-4.4); Hematocrit 35.9 % (42.0-52.0); Hemoglobin 11.9 g/dL (14.0-18.0); Immature Granulocyte Absolute 0.02 K/mm3 (0.00-0.031); Immature Granulocyte Percent A 0.5 % (0-0.5); Immature Platelet Fraction Pct 5.2 % (0.9-11.2); Lymphocytes Absolute Auto 1.18 K/mm3 (0.9-3.2); Mean Corpuscular HGB Conc 33.1 g/dl (32-36); Mean Corpuscular Volume 96.5 fl (80-100); Mean Platelet Volume 9.8 fl (7.4-10.4); Monocytes Absolute Auto 0.3 K/mm3 (0.1-0.6); Monocytes Percent Auto 8.7 % (2.6-8.5); Neutrophils Absolute Auto 2.2 K/mm3 (1.3-6.7); Neutrophils Percent Auto 58.7 % (45.5-73.1); Platelet Count Result 139 k/mm3 (150-375); Red Blood Count 3.72 M/mm3 (4.6-6.20); Red Cell Distribution Width 13.8 % (11.5-14.5); White Blood Count 3.8 K/mm3 (4.5-10.0)
[2020-11-30] MEDS: ASPIRIN 81 MG CHEWABLE TABLET 324 MG PO (15:42)
[2020-11-30 15:44] LABS: Partial Thromboplastin Time 27.7 SECONDS (22.3-36.8); Prothrombin Time 13.2 Seconds (11.1-14.7)
[2020-11-30 15:47] LABS: Alanine Aminotransferase 55 U/L (4-50); Albumin Level 3.9 g/dL (3.5-5.1); Alkaline Phosphatase 93 U/L (38-126); Anion Gap 9 mmol/L (8-16); Aspartate Amino Transferase 105 U/L (17-59); Bilirubin,Total 0.4 mg/dL (0.2-1.3); Blood Urea Nitrogen 10 mg/dL (9-20); Calcium 8.2 mg/dL (8.4-10.2); Carbon Dioxide 28 mmol/L (22-30); Chloride 107 mmol/L (98-107); Estimated CRCL calculation 93 ml/min; Estimated Glomerular Filt Rate > 60; Glucose 87 mg/dL (65-110); Lipase 560 U/L (23-300); Potassium 3.9 mmol/L (3.4-5.0); Sodium 144 mmol/L (137-145)
[2020-11-30 15:58] LABS: Troponin I < 0.012 ng/mL (0.000-0.034)
[2020-11-30] MEDS: NITROGLYCERIN OINTMENT 1 INCH DOSE TRANSDERM (18:35)
[2020-11-30 19:15] LABS: Troponin I < 0.012 ng/mL (0.000-0.034)
--- NOTE | 2020-11-30 19:58 | PC.NURSE ---
Pt told admitting Dr that he is suicidal. Room change may be warranted. PT denies any SI or HI to me at this time. PT states he is depressed because his niece . Pt states he does not have any plan to harm himself. Pt states he has had SI thoughts in the past
--- NOTE | 2020-11-30 20:19 | PC.NURSE ---
updated Charge on pt situation. ROom change will be needed for admit.
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
--- NOTE | 2020-11-30 20:37 | PC.NURSE ---
Gave report to ICU NURSE at this time.
[2020-11-30 21:53] LABS: Ethanol 26 mg/dL (<10)
[2020-11-30 22:44] LABS: Troponin I < 0.012 ng/mL (0.000-0.034)
--- NOTE | 2020-11-30 22:49 | ADMIMU ---
This patient, Carlos Atkins, was admitted to IMU status, and placed in Intensive Care Unit-11 on 11/30/20 at 2110. Patient oriented to hospital policies and general routines including ID bracelet, bed and alarms, visiting hours, pain management, procedures, bathroom and other care routines, personal items, smoking policy, room service/diet, and visiting hours. SI patient, belongings placed in locked closet. Information on how to activate the Rapid Response Team has been discussed. Patient/Family are encouraged to report perceived risks to care and to ask questions if they do not understand what they are told or what they should do.
[2020-11-30] MEDS: chlordiazePOXIDE (*CRX) 10 MG CAPSULE PO (23:50)
[2020-12-01] VITALS (11 sets, daily range): BP systolic 125–152; BP diastolic 65–85; PULSE 55–86; RESP 15–21; TEMP 36.6–36.9; O2SAT 96–98
[2020-12-01 03:59] LABS: Amphetamine Screen Urine Negative (Negative); Barbiturate Screen Urine Negative (Negative); Benzodiazepines Screen Urine Positive (Negative); Cannabinoid Screen Urine Positive (Negative); Cocaine Screen Urine Negative (Negative); Methadone Screen Urine Negative (Negative); Opiate Screen Urine Negative (Negative); Phencyclidine Screen Urine Negative (Negative)
[2020-12-01 04:49] LABS: Basophils Percent Auto 0.3 % (0.2-1.2); Eosinophils Absolute Auto 0.1 K/mm3 (0-0.3); Hematocrit 35.3 % (42.0-52.0); Hemoglobin 11.7 g/dL (14.0-18.0); Immature Granulocyte Absolute 0.01 K/mm3 (0.00-0.031); Immature Granulocyte Percent A 0.3 % (0-0.5); Immature Platelet Fraction Pct 4.7 % (0.9-11.2); Lymphocytes Absolute Auto 1.18 K/mm3 (0.9-3.2); Mean Corpuscular HGB Conc 33.1 g/dl (32-36); Mean Corpuscular Hemoglobin 31.9 pg (26-34); Mean Corpuscular Volume 96.2 fl (80-100); Mean Platelet Volume 10.5 fl (7.4-10.4); Monocytes Absolute Auto 0.4 K/mm3 (0.1-0.6); Monocytes Percent Auto 13.9 % (2.6-8.5); Neutrophils Absolute Auto 1.3 K/mm3 (1.3-6.7); Neutrophils Percent Auto 43.5 % (45.5-73.1); Platelet Count Result 117 k/mm3 (150-375); Red Blood Count 3.67 M/mm3 (4.6-6.20); Red Cell Distribution Width 13.8 % (11.5-14.5)
[2020-12-01 04:59] LABS: Alanine Aminotransferase 46 U/L (4-50); Albumin Level 3.4 g/dL (3.5-5.1); Alkaline Phosphatase 89 U/L (38-126); Anion Gap 6 mmol/L (8-16); Aspartate Amino Transferase 88 U/L (17-59); Bilirubin,Total 0.3 mg/dL (0.2-1.3); Blood Urea Nitrogen 10 mg/dL (9-20); CRP < 0.5 mg/dL (<1.0); Calcium 8.2 mg/dL (8.4-10.2); Carbon Dioxide 28 mmol/L (22-30); Chloride 108 mmol/L (98-107); Estimated CRCL calculation 82 ml/min; Estimated Glomerular Filt Rate > 60; Glucose 96 mg/dL (65-110); Lactate Dehydrogenase 550 U/L (313-618); Lactic Acid Reflex 1.7 mmol/L (0.7-2.1); Magnesium 1.6 mg/dL (1.6-2.3); Sodium 142 mmol/L (137-145)
[2020-12-01 06:12] LABS: Thyroid Stimulating Hormone Reflex 0.746 uIU/mL (0.465-4.68)
[2020-12-01] MEDS: chlordiazePOXIDE (*CRX) 10 MG CAPSULE PO ×4 (06:37→23:09)
[2020-12-01] MEDS: NAPROXEN SODIUM 220 MG TABLET PO (08:23)
[2020-12-01] MEDS: FOLIC ACID 1 MG TABLET PO (08:24)
[2020-12-01] MEDS: THIAMINE HCL 100 MG TABLET PO (08:24)
[2020-12-01] MEDS: busPIRone HCL 10 MG TABLET PO ×3 (08:24→17:15)
[2020-12-01] MEDS: MULTIVITAMINS /C LUTEIN (CENTRUM SILVER) TABLET *BKC 1 TAB PO (08:25)
[2020-12-01] MEDS: SERTRALINE HCL 50 MG TABLET PO (08:25)
[2020-12-01] MEDS: PANTOPRAZOLE 40 MG TABLET PO (08:25)
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
--- NOTE | 2020-12-02 | EST_ITS ---
Patient Info Name: Carlos Atkins Age: 70 years : 1950 Gender: Male Ht: 69 in Wt: 158 lbs BSA: 1.87 m2 HR: 59 bpm BP: 143 / 80 mmHg Heart Rhythm: Sinus Rhythm Exam Date: 12/02/2020 9:06 AM Exam Location: [facility] Stress Patient Status: Inpatient Admit Date: 11/30/2020 Staff Ordering Physician: Jo Ann Mascorro NP Attending Provider: Pavan Sims MD Exercise Technologist: Maliha Montero CT Exercise Physician: Jadiel Barrios MD Exam Type: CA stress edda w NM Study Info Indications R07.9 - Chest pain, unspecified A regadenoson stress test was performed. Summary 1. Please correlate with nuclear medicine images, reported separately. 2. No abnormal ST-T wave changes with lexiscan. Protocol: Lexiscan Stress ECG Details Stage: REST Duration (min): 0 min : 47 sec HR (bpm): 59 SBP (mmHg): 143 DBP (mmHg): 80 Stage: REST Duration (min): 22 min : 7 sec HR (bpm): 61 SBP (mmHg): 143 DBP (mmHg): 80 Stage: STAGE 1 Duration (min): 0 min : 59 sec HR (bpm): 81 SBP (mmHg): 149 DBP (mmHg): 84 Stage: RECOVERY Duration (min): 1 min : 0 sec HR (bpm): 91 SBP (mmHg): 149 DBP (mmHg): 84 Stage: RECOVERY Duration (min): 2 min : 0 sec HR (bpm): 88 SBP (mmHg): 149 DBP (mmHg): 84 Stage: RECOVERY Duration (min): 3 min : 0 sec HR (bpm): 82 SBP (mmHg): 148 DBP (mmHg): 86 Stage: RECOVERY Duration (min): 3 min : 1 sec HR (bpm): 81 SBP (mmHg): 148 DBP (mmHg): 86 Rest HR: 61 bpm Peak HR: 93 bpm Rest Sys BP: 143 mmHg Peak Sys BP: 149 mmHg Max Pred HR: 148 bpm % Max Pred HR: 63 % Target HR: 126 bpm Max RPP: 13,857 bpm*mmHg Target HR Summary: Hemodynamic response to exercise was normal BP Response: Normal blood pressure response Termination Reason: Completed protocol Cardiac Symptoms: None Total Time: 1 min : 0 sec Rest Aguilera BP: 80 mmHg Peak Aguilera BP: 84 mmHg Total Dose: 0.4 mg Resting ECG Sinus bradycardia. Short DC interval. Stress ECG No abnormal ST/T wave changes with exercise. Arrhythmias one PVC. Report Signatures
[2020-12-02] MEDS: chlordiazePOXIDE (*CRX) 10 MG CAPSULE PO ×3 (05:07→17:52)
[2020-12-02 08:00] VITALS: BP 150/85; PULSE 53; RESP 20; TEMP 36.4; O2SAT 96
--- NOTE | 2020-12-02 08:07 | PC.NURSE ---
Patient to [facility] via wheelchair. Patty, patient sitter, accompanied patient off floor.
--- NOTE | 2020-12-02 10:10 | PC.NURSE ---
Patient returned to room following lexiscan stress test.
[2020-12-02] MEDS: busPIRone HCL 10 MG TABLET PO ×3 (10:23→17:52)
[2020-12-02] MEDS: SERTRALINE HCL 50 MG TABLET PO (10:23)
[2020-12-02] MEDS: PANTOPRAZOLE 40 MG TABLET PO (10:23)
[2020-12-02] MEDS: FOLIC ACID 1 MG TABLET PO (10:24)
[2020-12-02] MEDS: MULTIVITAMINS /C LUTEIN (CENTRUM SILVER) TABLET *BKC 1 TAB PO (10:24)
[2020-12-02] MEDS: NAPROXEN SODIUM 220 MG TABLET PO ×2 (10:24→17:52)
[2020-12-02] MEDS: THIAMINE HCL 100 MG TABLET PO (10:24)
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
[2020-12-02 16:00] VITALS: BP 137/75; PULSE 60; RESP 20; TEMP 36.8; O2SAT 98
[2020-12-02 16:00] LABS: EDCOVIDSCREEN Negative (Negative)
[2020-12-02 17:02] LABS: Lipase 72 U/L (23-300)
--- NOTE | 2020-12-02 17:49 | PM.EVENT ---
Event Note Event Note Event Note: Patient has been cleared from medical standpoint with a normal Lexiscan stress test.
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
== END 2020-12-02 19:47 ==
LOC: ANHED 18:15 → ANHICU 22:52 → ANHIMU 12-04 16:31
PROVIDERS: Internal Medicine; Nurse Practitioner; Admitting Provider Internal Medicine; Emergency Provider Emergency Medicine; PCP Internal Medicine Gastroenterology; Visit Provider Internal Medicine
DX: R07.9 Chest pain, unspecified (principal); R45.851 Suicidal ideations; F10.10 Alcohol abuse, uncomplicated; F43.12 Post-traumatic stress disorder, chronic; F17.210 Nicotine dependence, cigarettes, uncomplicated; F32.9 Major depressive disorder, single episode, unspecified; Z79.899 Other long term (current) drug therapy; Z20.822 Contact with and (suspected) exposure to COVID-19
CPT/HCPCS: 36415; 71046; 78452; 80053; 80307; 82728; 83605; 83615; 83690; 83735; 84443; 84484; 85025; 85055; 85610; 85730; 86140; 87426; 93005; 93017; 99285; A9270; A9502; C9803; G0378; J2785

== ENCOUNTER 2021-01-18 20:07 | Emergency (ER) | payer MEDICARE, MEDICAID, SELFPAY ==
[2021-01-18] VITALS (26 sets, daily range): BP systolic 114–132; BP diastolic 73–82; PULSE 66–94; RESP 14–22; TEMP 36.9; O2SAT 91–100
--- NOTE | ~2021-01-18 | XR_ITS ---
EXAMINATION: XR chest 2V EXAM DATE: 01/18/2021 21:16 INDICATION: Left-sided chest pain. TECHNIQUE: Frontal and lateral projections of the chest obtained and reviewed. Comparison is made to prior examination from 11/30/2020. FINDINGS: The lungs are clear. There are no pleural effusions. The cardiomediastinal silhouette is within normal limits. There is no pneumothorax suspected. Left 6th rib course alteration has been p resent on prior studies, is an old rib fracture. IMPRESSION: No acute cardiopulmonary findings. Reviewed, dictated and finalized at location A. AL TRAINER
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
[2021-01-18 20:48] LABS: Basophils Percent Auto 0.5 % (0.2-1.2); Eosinophils Absolute Auto 0.1 K/mm3 (0-0.3); Eosinophils Percent Auto 2.1 % (0-4.4); Hemoglobin 12.3 g/dL (14.0-18.0); Immature Granulocyte Absolute 0.01 K/mm3 (0.00-0.031); Immature Granulocyte Percent A 0.3 % (0-0.5); Immature Platelet Fraction Pct 7.8 % (0.9-11.2); Lymphocytes Absolute Auto 1.44 K/mm3 (0.9-3.2); Lymphocytes Percent Auto 36.9 % (18.3-44.2); Mean Corpuscular HGB Conc 33.2 g/dl (32-36); Mean Corpuscular Hemoglobin 32.5 pg (26-34); Mean Corpuscular Volume 97.9 fl (80-100); Mean Platelet Volume 10.6 fl (7.4-10.4); Monocytes Absolute Auto 0.5 K/mm3 (0.1-0.6); Monocytes Percent Auto 12.6 % (2.6-8.5); Neutrophils Absolute Auto 1.9 K/mm3 (1.3-6.7); Neutrophils Percent Auto 47.6 % (45.5-73.1); Platelet Count Result 113 k/mm3 (150-375); Red Blood Count 3.78 M/mm3 (4.6-6.20); White Blood Count 3.9 K/mm3 (4.5-10.0)
[2021-01-18 20:57] LABS: Alanine Aminotransferase 62 U/L (4-50); Albumin Level 4.2 g/dL (3.5-5.1); Alkaline Phosphatase 88 U/L (38-126); Anion Gap 11 mmol/L (8-16); Aspartate Amino Transferase 102 U/L (17-59); Bilirubin,Total 0.4 mg/dL (0.2-1.3); Blood Urea Nitrogen 11 mg/dL (9-20); Calcium 8.7 mg/dL (8.4-10.2); Carbon Dioxide 26 mmol/L (22-30); Chloride 103 mmol/L (98-107); Estimated CRCL calculation 80 ml/min; Estimated Glomerular Filt Rate > 60; Ethanol 131 mg/dL (<10); Glucose 81 mg/dL (65-110); Potassium 3.9 mmol/L (3.4-5.0); Prothrombin Time 13.4 Seconds (11.1-14.7); Sodium 140 mmol/L (137-145)
[2021-01-18 20:58] LABS: Partial Thromboplastin Time 27.5 SECONDS (22.3-36.8)
[2021-01-18 21:09] LABS: Troponin I < 0.012 ng/mL (0.000-0.034)
[2021-01-18 21:38] LABS: Thyroid Stimulating Hormone Reflex 0.538 uIU/mL (0.465-4.68)
[2021-01-18 21:47] LABS: Add Urine Microscopic? YES; Appearance Urine Clear (Clear); Bilirubin Urine Negative (Negative); Blood Urine Negative (Negative); Color Urine Yellow (Yellow); Glucose Urine UA Negative (Negative); Ketones Urine Negative (Negative); Leukocyte Esterase Ur Negative LEU/UL (Negative); Mucus Urine Rare /lpf; Nitrate Urine Negative (Negative); Protein Urine Negative (Negative); RBC Urine 0-2 /hpf (0-2); Specific Grav Ur 1.012 (1.001-1.035); Squamous Epithelial Cell Urine Rare /hpf (Few); WBC Urine 0-3 /hpf
[2021-01-18 22:07] LABS: Amphetamine Screen Urine Negative (Negative); Barbiturate Screen Urine Negative (Negative); Benzodiazepines Screen Urine Negative (Negative); Cannabinoid Screen Urine Positive (Negative); Cocaine Screen Urine Negative (Negative); Methadone Screen Urine Negative (Negative); Opiate Screen Urine Negative (Negative); Phencyclidine Screen Urine Negative (Negative)
--- NOTE | 2021-01-18 22:50 | PC.NURSE ---
Sitter at bedside. NOT medically cleared for crisis eval per ED MD.
[2021-01-18 23:40] LABS: Troponin I < 0.012 ng/mL (0.000-0.034)
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
--- NOTE | 2021-01-18 23:58 | ECG_ITS ---
Measurements Intervals [place] [employer] [place] Rate: 76 P: 62 OK: 136 QRS: 6 QRSD: 97 T: 52 QT: 407 QTc: 460 Interpretive Statements SINUS RHYTHM BASELINE ARTIFACT- I, II, III, AVR, AVL, AVF, V1-V6 BORDERLINE ECG Electronically Signed On 01-19-2021 7:55:42 STORE CLERK CASHIER by Eron Suarez D.O.
[2021-01-19] VITALS (20 sets, daily range): BP systolic 127–153; BP diastolic 78–99; PULSE 56–74; RESP 14–20; TEMP 36.6; O2SAT 92–100
[2021-01-19 02:28] LABS: Ethanol 16 mg/dL (<10)
[2021-01-19 02:40] LABS: Troponin I < 0.012 ng/mL (0.000-0.034)
--- NOTE | 2021-01-19 02:43 | PC.NURSE ---
Per ED MD Chau, pt is medically clear for crisis regional intermodal truck driver to evaluate.
[2021-01-19 06:01] LABS: EDCOVIDSCREEN Negative (Negative)
--- NOTE | 2021-01-19 06:12 | ECG_ITS ---
Measurements Intervals [place] Rate: 65 P: 63 MO: 134 QRS: 25 QRSD: 88 T: 50 QT: 437 QTc: 457 Interpretive Statements SINUS RHYTHM INCOMPLETE RIGHT BUNDLE BRANCH BLOCK BASELINE ARTIFACT- II, III, AVR, AVL, AVF BORDERLINE ECG Electronically Signed On 01-21-2021 14:15:43 HOSPITAL PERSONNEL DIRECTOR by Eron Suarez D.O.
--- NOTE | 2021-01-19 06:51 | PC.NURSE ---
Pt resting in bed. sitter at bedside. Crisis heavy line technician faxed pt's chart to facilities. awaiting replies. Rapid Covid swab sent to lab as ordered. no s/s of distress.
--- NOTE | 2021-01-19 16:46 | PC.NURSE ---
[facility] returned call. [facility] state that [facility] have [facility] for [facility] to be able to accept him. Otherwise he may have to pay a portion out of pocket.
--- NOTE | 2021-01-19 18:23 | PC.NURSE ---
[facility] called and has been accepted by Dr. PARR. they will be faxing us consent forms for the pt to sign.
--- NOTE | 2021-01-19 19:00 | PC.NURSE ---
Assuming care of pt.
--- NOTE | 2021-01-19 23:11 | PC.NURSE ---
23:10: Refaxed the requested forms to [facility].
--- NOTE | 2021-01-20 00:07 | PC.NURSE ---
Rn called report on pt to Ivy HERNANDEZ at [facility].
[2021-01-20 00:08] VITALS: BP 153/92; PULSE 89; RESP 16; O2SAT 100
[2021-01-20 02:47] VITALS: BP 135/91; PULSE 68; RESP 18; O2SAT 98
[2021-01-20 04:10] VITALS: BP 145/65; PULSE 85; RESP 16; O2SAT 100
== END 2021-01-20 04:10 ==
PROVIDERS: Emergency Medicine; Emergency Provider Emergency Medicine; PCP Internal Medicine Gastroenterology
DX: R45.851 Suicidal ideations (principal); R07.9 Chest pain, unspecified; F17.210 Nicotine dependence, cigarettes, uncomplicated; F32.9 Major depressive disorder, single episode, unspecified; Z79.899 Other long term (current) drug therapy; Z20.822 Contact with and (suspected) exposure to COVID-19
CPT/HCPCS: 36415; 71046; 80053; 80307; 81001; 84443; 84484; 85025; 85055; 85610; 85730; 87426; 93005; 99285; C9803

== ENCOUNTER 2021-02-22 01:01 | Emergency (ER) | payer MEDICARE, OTHER, MEDICAID, SELFPAY ==
[2021-02-22] VITALS (59 sets, daily range): BP systolic 96–137; BP diastolic 58–83; PULSE 65–108; RESP 15–25; TEMP 36.7; O2SAT 94–99
--- NOTE | ~2021-02-22 | XR_ITS ---
EXAMINATION: XR chest 1V portable 02/22/2021 01:39 INDICATION: Left-sided chest pain. EtOH. PROCEDURE: AP portable chest COMPARISON: Comparison to multiple prior studies sequentially, with oldest reviewed study dated 06/24. FINDINGS: The lungs are clear. The cardiomediastinal silhouette is within normal limits. There are no pleural effusions. There is no pneumothorax suspected. Shallow inspiration with crowding of the pulmonary vessels. IMPRESSION: 1: NO ACUTE CARDIOPULMONARY DISEASE. Reviewed, dictated and finalized at location A. [employer]
--- NOTE | 2021-02-22 01:28 | ECG_ITS ---
Measurements Intervals [place] Rate: 93 P: 35 NC: 120 QRS: 18 QRSD: 96 T: 60 QT: 376 QTc: 468 Interpretive Statements SINUS RHYTHM MINIMAL Q WAVES- INFERIOR LEADS BASELINE ARTIFACT- II, III, AVR, AVF, V2-V6 BORDERLINE ECG Electronically Signed On 02-22-2021 5:57:45 CHILD PSYCHOLOGIST by Eron Suarez D.O.
[2021-02-22] MEDS: ASPIRIN 81 MG CHEWABLE TABLET 324 MG PO (01:51)
[2021-02-22] MEDS: BELLADONNA ALK/PHENOB ELIX 10 ML, MAG HYDROX/ALUMINUM HYD/SIMETH 30 ML, LIDOCAINE HCL 2... PO (01:53)
[2021-02-22 01:55] LABS: Basophils Percent Auto 0.2 % (0.2-1.2); Eosinophils Absolute Auto 0.1 K/mm3 (0-0.3); Eosinophils Percent Auto 1.3 % (0-4.4); Hematocrit 37.9 % (42.0-52.0); Hemoglobin 12.9 g/dL (14.0-18.0); Immature Granulocyte Absolute 0.01 K/mm3 (0.00-0.031); Immature Granulocyte Percent A 0.2 % (0-0.5); Immature Platelet Fraction Pct 12.6 % (0.9-11.2); Lymphocytes Percent Auto 29.5 % (18.3-44.2); Mean Corpuscular Hemoglobin 32.3 pg (26-34); Mean Platelet Volume 11.4 fl (7.4-10.4); Monocytes Absolute Auto 0.8 K/mm3 (0.1-0.6); Neutrophils Absolute Auto 2.5 K/mm3 (1.3-6.7); Neutrophils Percent Auto 52.8 % (45.5-73.1); Platelet Count Result 81 k/mm3 (150-375); Red Blood Count 3.99 M/mm3 (4.6-6.20); Red Cell Distribution Width 13.2 % (11.5-14.5); White Blood Count 4.7 K/mm3 (4.5-10.0)
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
[2021-02-22 02:03] LABS: Acetaminophen < 10 ug/mL (10-30); Salicylate < 1.0 mg/dL (2-20)
[2021-02-22 02:04] LABS: Alanine Aminotransferase 54 U/L (4-50); Albumin Level 4.1 g/dL (3.5-5.1); Alkaline Phosphatase 86 U/L (38-126); Anion Gap 15 mmol/L (8-16); Aspartate Amino Transferase 51 U/L (17-59); Bilirubin,Total 0.5 mg/dL (0.2-1.3); Blood Urea Nitrogen 16 mg/dL (9-20); Calcium 8.9 mg/dL (8.4-10.2); Carbon Dioxide 23 mmol/L (22-30); Chloride 100 mmol/L (98-107); Estimated Glomerular Filt Rate 60; Ethanol 274 mg/dL (<10); Glucose 173 mg/dL (65-110); Lipase 68 U/L (23-300); Magnesium 1.7 mg/dL (1.6-2.3); Potassium 3.3 mmol/L (3.4-5.0); Sodium 138 mmol/L (137-145)
[2021-02-22 02:11] LABS: Prothrombin Time 13.4 Seconds (11.1-14.7)
[2021-02-22 02:12] LABS: Partial Thromboplastin Time 28.6 SECONDS (22.3-36.8)
[2021-02-22 02:13] LABS: NT Pro B Type Natriuretic Pept 54 pg/mL (5-100)
[2021-02-22 02:15] LABS: Troponin I < 0.012 ng/mL (0.000-0.034)
[2021-02-22 03:42] LABS: SARS-CoV-2 RNA PCR Positive
[2021-02-22 05:19] LABS: Amphetamine Screen Urine Negative (Negative); Barbiturate Screen Urine Negative (Negative); Benzodiazepines Screen Urine Negative (Negative); Cannabinoid Screen Urine Positive (Negative); Cocaine Screen Urine Negative (Negative); Methadone Screen Urine Negative (Negative); Opiate Screen Urine Negative (Negative); Phencyclidine Screen Urine Negative (Negative)
[2021-02-22 05:23] LABS: Troponin I < 0.012 ng/mL (0.000-0.034)
[2021-02-22 06:04] LABS: Add Urine Microscopic? YES; Appearance Urine Clear (Clear); Bilirubin Urine Negative (Negative); Blood Urine Negative (Negative); Color Urine Yellow (Yellow); Glucose Urine UA Negative (Negative); Ketones Urine Negative (Negative); Leukocyte Esterase Ur Trace LEU/UL (Negative); Mucus Urine Rare /lpf; Nitrate Urine Negative (Negative); Protein Urine Negative (Negative); RBC Urine 0-2 /hpf (0-2); Specific Grav Ur 1.004 (1.001-1.035); Urobilinogen Urine Negative mg/dL (<2.0); WBC Urine 0-3 /hpf
[2021-02-22 11:17] LABS: Ethanol 125 mg/dL (<10)
[2021-02-22 14:55] LABS: Ethanol 15 mg/dL (<10)
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
--- NOTE | 2021-02-22 16:14 | PC.NURSE ---
patient's dinner tray ordered at this time.
--- NOTE | 2021-02-22 19:45 | PC.NURSE ---
Report received from MARY Hutchison. Assumed care of patient at this time. Sitter at bedside.
--- NOTE | 2021-02-22 23:26 | PC.NURSE ---
2412 Bhumi from [facility] intake calls to inform that the patient does not meet inpatient criteria and state that the patient symptoms are induced by alcohol ingestion. She states that the patient is not accepted at this time. Leonel Maher who evaluated was contacted and informed of information. Nika states that they will continue to attempt to find placement and come re-evaluate the patient tomorrow evening if patient is not accepted by that time. ERP notified.
[2021-02-23] VITALS (41 sets, daily range): BP systolic 115–174; BP diastolic 71–90; PULSE 58–91; RESP 13–26; TEMP 36.7–37.4; O2SAT 95–100
--- NOTE | 2021-02-23 11:14 | PC.NURSE ---
Patient care report received from MARY Lennon. All questions answered at this time.
--- NOTE | 2021-02-23 22:20 | PC.NURSE ---
Assumed care of pt at this time, pt is alert on stretcher - lights dimmed, sitter at bedside. Pt reports SI, pt is cooperative and calm at present time. Pt in room 15, environment evaluated. VSS.
[2021-02-24 03:16] VITALS: BP 136/66; PULSE 74; RESP 15; O2SAT 97
--- NOTE | 2021-02-24 06:14 | PC.NURSE ---
Pt continues to rest w/ lights out and alert to verbal stimuli. Pt has no requests at this time. Using urinal as needed. Calm and cooperative. Sitter remains at bedside.
[2021-02-24 07:46] VITALS: BP 122/73; PULSE 70; RESP 18; TEMP 37.2; O2SAT 98
--- NOTE | 2021-02-24 08:14 | PC.NURSE ---
Chart faxed to [facility].
--- NOTE | 2021-02-24 08:21 | PC.NURSE ---
Pt states he doesn't want to go to [facility] because it is a black hospital. States he was in [place] in and wants to go there because that is where his program is. States I'm not going to be bounced around. I'm paying for this .
--- NOTE | 2021-02-24 09:02 | PC.NURSE ---
Mamie from crisis called and states [facility] cannot take pt due to covid status, [facility] has denied pt.
[2021-02-24 17:20] VITALS: BP 122/78; PULSE 70; O2SAT 99
--- NOTE | 2021-02-24 17:23 | PC.NURSE ---
alumnae secretary brought room tray to pt. pt is now sitting up and eating at this time.
--- NOTE | 2021-02-24 20:23 | PC.NURSE ---
pt states that he no longer wants to harm self or take life. [facility]hab program
--- NOTE | 2021-02-24 23:03 | PC.NURSE ---
2 bags of clothing placed in locked cabinet
[2021-02-25 02:40] VITALS: BP 134/87; PULSE 62; RESP 16; TEMP 36.1; O2SAT 98
--- NOTE | 2021-02-25 07:15 | PC.NURSE ---
meal tray ordered for patient.
--- NOTE | 2021-02-25 07:17 | PC.NURSE ---
DR MCDANIEL NOTIFIED OF PT BEING LOW RISK. STATES NO LONGER NEEDS A SITTER.
--- NOTE | 2021-02-25 07:28 | PC.NURSE ---
SPOKE WITH MARY AT CRISIS, STATES WILL HAVE SOMEONE COME OUT FOR REEVALUATION ON POSSIBLY DO IT OVER THE PHONE.
[2021-02-25 15:26] VITALS: BP 138/84; PULSE 70; RESP 18; TEMP 36.4; O2SAT 97
== END 2021-02-25 15:28 | disposition home or self-care (01) ==
PROVIDERS: Emergency Medicine; Emergency Provider Emergency Medicine; PCP Internal Medicine Gastroenterology
DX: F10.20 Alcohol dependence, uncomplicated (principal); U07.1 COVID-19; F43.12 Post-traumatic stress disorder, chronic; F17.210 Nicotine dependence, cigarettes, uncomplicated; Y90.8 Blood alcohol level of 240 mg/100 ml or more
CPT/HCPCS: 36415; 71045; 80053; 80307; 81001; 83690; 83735; 83880; 84484; 85025; 85055; 85610; 85730; 93005; 99284; A9270; C9803; U0003; U0005

== ENCOUNTER 2021-03-18 21:44 | Emergency (ER) | payer MEDICARE, OTHER, MEDICAID, SELFPAY ==
--- NOTE | ~2021-03-18 | XR_ITS ---
EXAMINATION: XR tibia fibula LT 2V DATE: 03/18/2021 22:51 INDICATION: Left lower leg pain. Fall yesterday. TECHNIQUE: 2 views of left tibia and fibula on 5 radiographs were obtained. COMPARISON: None. FINDINGS: There are old healed fracture deformities of the proximal diaphyses of tibia and fibula. Th ere is moderate osteoarthritis of medial and lateral compartments and mild osteoarthritis of patellof emoral compartment of the knee. There is a moderate-sized knee joint effusion. IMPRESSION: 1. Moderate left knee osteoarthritis. 2. Moderate-sized left knee joint effusion. Reviewed, dictated and finalized at location A. [employer]
--- NOTE | 2021-03-18 22:11 | ECG_ITS ---
Measurements Intervals [place] Rate: 73 P: 57 [place]: 139 QRS: 3 QRSD: 89 T: 35 QT: 416 QTc: 460 Interpretive Statements SINUS RHYTHM INCOMPLETE RIGHT BUNDLE BRANCH BLOCK BORDERLINE ECG Electronically Signed On 03-19-2021 6:30:17 CAMPUS SECURITY DIRECTOR by Eron Suarez D.O.
[2021-03-18 22:12] VITALS: BP 118/70; PULSE 70; RESP 14; TEMP 36.4; O2SAT 97
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
[2021-03-18 22:44] LABS: Glucose Point of Care 106 mg/dl (65-105)
[2021-03-18 23:04] LABS: Basophils Percent Auto 0.2 % (0.2-1.2); Eosinophils Absolute Auto 0.1 K/mm3 (0-0.3); Eosinophils Percent Auto 1.5 % (0-4.4); Hematocrit 36.6 % (42.0-52.0); Hemoglobin 12.3 g/dL (14.0-18.0); Immature Granulocyte Absolute 0.03 K/mm3 (0.00-0.031); Immature Granulocyte Percent A 0.7 % (0-0.5); Immature Platelet Fraction Pct 7.4 % (0.9-11.2); Lymphocytes Absolute Auto 1.62 K/mm3 (0.9-3.2); Lymphocytes Percent Auto 35.1 % (18.3-44.2); Mean Corpuscular HGB Conc 33.6 g/dl (32-36); Mean Corpuscular Hemoglobin 32.8 pg (26-34); Mean Corpuscular Volume 97.6 fl (80-100); Mean Platelet Volume 10.7 fl (7.4-10.4); Monocytes Absolute Auto 0.7 K/mm3 (0.1-0.6); Monocytes Percent Auto 15.2 % (2.6-8.5); Neutrophils Absolute Auto 2.2 K/mm3 (1.3-6.7); Neutrophils Percent Auto 47.3 % (45.5-73.1); Platelet Count Result 130 k/mm3 (150-375); Red Blood Count 3.75 M/mm3 (4.6-6.20); Red Cell Distribution Width 13.6 % (11.5-14.5); White Blood Count 4.6 K/mm3 (4.5-10.0)
[2021-03-18 23:12] LABS: Acetaminophen < 10 ug/mL (10-30); Alanine Aminotransferase 47 U/L (4-50); Albumin Level 3.9 g/dL (3.5-5.1); Alkaline Phosphatase 95 U/L (38-126); Anion Gap 12 mmol/L (8-16); Aspartate Amino Transferase 64 U/L (17-59); Bilirubin,Total 0.2 mg/dL (0.2-1.3); Blood Urea Nitrogen 17 mg/dL (9-20); Calcium 8.6 mg/dL (8.4-10.2); Carbon Dioxide 26 mmol/L (22-30); Chloride 106 mmol/L (98-107); Estimated Glomerular Filt Rate > 60; Ethanol 243 mg/dL (<10); Glucose 119 mg/dL (65-110); Potassium 3.8 mmol/L (3.4-5.0); Salicylate < 1.0 mg/dL (2-20); Sodium 144 mmol/L (137-145)
--- NOTE | 2021-03-18 23:34 | PC.NURSE ---
Assumed care of pt at this time. Pt is resting on stretcher. Discussed POC. Sitter at bedside.
[2021-03-18 23:43] LABS: Thyroid Stimulating Hormone 0.412 uIU/mL (0.465-4.680)
[2021-03-19 00:01] LABS: Add Urine Microscopic? YES; Appearance Urine Clear (Clear); Bilirubin Urine Negative (Negative); Blood Urine Negative (Negative); Color Urine Yellow (Yellow); Glucose Urine UA Negative (Negative); Ketones Urine Negative (Negative); Leukocyte Esterase Ur Negative LEU/UL (Negative); Mucus Urine Rare /lpf; Nitrate Urine Negative (Negative); Protein Urine Negative (Negative); Specific Grav Ur 1.015 (1.001-1.035); WBC Urine 0-3 /hpf
[2021-03-19 00:10] LABS: Amphetamine Screen Urine Negative (Negative); Barbiturate Screen Urine Negative (Negative); Benzodiazepines Screen Urine Positive (Negative); Cannabinoid Screen Urine Positive (Negative); Cocaine Screen Urine Positive (Negative); Methadone Screen Urine Negative (Negative); Opiate Screen Urine Negative (Negative); Phencyclidine Screen Urine Negative (Negative)
[2021-03-19 02:27] VITALS: BP 119/69; PULSE 78; RESP 13; O2SAT 99
[2021-03-19 05:34] LABS: Ethanol 111 mg/dL (<10)
[2021-03-19 06:00] VITALS: BP 127/85; PULSE 67; RESP 15; O2SAT 96
[2021-03-19 07:20] LABS: SARS-CoV-2 RNA PCR Negative
--- NOTE | 2021-03-19 07:21 | PC.NURSE ---
Assumed care of pt. at this time. Report from MARY Kidd
--- NOTE | 2021-03-19 07:23 | PC.NURSE ---
Pt. sleeping on stretcher chest rise and fall noted. pt. lips normal color. pt. NAD
[2021-03-19 07:27] LABS: Ethanol 63 mg/dL (<10)
[2021-03-19 08:04] VITALS: BP 119/67; PULSE 86; RESP 16; O2SAT 96
--- NOTE | 2021-03-19 09:07 | PC.NURSE ---
spoke with zay from crisis, she will work on placement for patient
--- NOTE | 2021-03-19 10:33 | PC.NURSE ---
[facility] accepted accepting Dr. Blakely accepted pt. dx. psychosis report at [phone]
[2021-03-19 11:24] VITALS: BP 125/74; PULSE 91; O2SAT 94
[2021-03-19] MEDS: LORazepam (*CRX) 1 MG TABLET PO (12:10)
[2021-03-19 12:15] VITALS: BP 123/88; PULSE 97; RESP 14; O2SAT 99
== END 2021-03-19 12:15 | disposition short-term general hospital (02) ==
PROVIDERS: Emergency Medicine; Emergency Provider Emergency Medicine; PCP Internal Medicine Gastroenterology
DX: R45.851 Suicidal ideations (principal); F32.A Depression, unspecified; F10.20 Alcohol dependence, uncomplicated; Y90.8 Blood alcohol level of 240 mg/100 ml or more; Z20.822 Contact with and (suspected) exposure to COVID-19; F43.12 Post-traumatic stress disorder, chronic; F17.210 Nicotine dependence, cigarettes, uncomplicated; T50.916A Underdosing of multiple unspecified drugs, medicaments and biological substances, initial encounter; Z91.128 Patient's intentional underdosing of medication regimen for other reason; I45.10 Unspecified right bundle-branch block; F14.90 Cocaine use, unspecified, uncomplicated; F12.10 Cannabis abuse, uncomplicated
CPT/HCPCS: 36415; 51701; 73590; 80053; 80307; 81001; 82948; 84443; 85025; 85055; 93005; 99285; A9270; C9803; U0003; U0005

== ENCOUNTER 2021-03-26 23:29 | Emergency (ER) | payer MEDICARE, MEDICAID, SELFPAY ==
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
[2021-03-26 23:55] VITALS: BP 96/72; PULSE 69; RESP 16; TEMP 36.6; O2SAT 97
--- NOTE | 2021-03-27 00:29 | PC.NURSE ---
Pt changed into paper scrubs belongings placed in secured area. NO sitter at this time per charge nurse until pt is no longer intoxicated.
[2021-03-27 01:48] LABS: Basophils Percent Auto 0.3 % (0.2-1.2); Eosinophils Absolute Auto 0.1 K/mm3 (0-0.3); Hematocrit 40.3 % (42.0-52.0); Hemoglobin 13.7 g/dL (14.0-18.0); Immature Granulocyte Absolute 0.03 K/mm3 (0.00-0.031); Immature Granulocyte Percent A 0.4 % (0-0.5); Lymphocytes Absolute Auto 2.75 K/mm3 (0.9-3.2); Lymphocytes Percent Auto 41.2 % (18.3-44.2); Mean Corpuscular Hemoglobin 32.7 pg (26-34); Mean Corpuscular Volume 96.2 fl (80-100); Mean Platelet Volume 11.2 fl (7.4-10.4); Monocytes Absolute Auto 0.5 K/mm3 (0.1-0.6); Monocytes Percent Auto 7.8 % (2.6-8.5); Neutrophils Absolute Auto 3.3 K/mm3 (1.3-6.7); Neutrophils Percent Auto 49.3 % (45.5-73.1); Platelet Count Result 141 k/mm3 (150-375); Red Blood Count 4.19 M/mm3 (4.6-6.20); Red Cell Distribution Width 13.2 % (11.5-14.5); White Blood Count 6.7 K/mm3 (4.5-10.0)
[2021-03-27 01:52] LABS: Add Urine Microscopic? YES; Appearance Urine Clear (Clear); Bilirubin Urine Negative (Negative); Blood Urine Negative (Negative); Color Urine Straw (Yellow); Glucose Urine UA Negative (Negative); Ketones Urine Negative (Negative); Leukocyte Esterase Ur Trace LEU/UL (Negative); Mucus Urine Rare /lpf; Nitrate Urine Negative (Negative); Protein Urine Negative (Negative); RBC Urine 0-2 /hpf (0-2); Urobilinogen Urine Negative mg/dL (<2.0); WBC Urine 0-3 /hpf
[2021-03-27 01:59] LABS: Specific Grav Ur 1.004 (1.001-1.035)
[2021-03-27 02:09] LABS: Alanine Aminotransferase 62 U/L (4-50); Albumin Level 4.3 g/dL (3.5-5.1); Alkaline Phosphatase 115 U/L (38-126); Anion Gap 11 mmol/L (8-16); Aspartate Amino Transferase 61 U/L (17-59); Bilirubin,Total 0.2 mg/dL (0.2-1.3); Blood Urea Nitrogen 16 mg/dL (9-20); Carbon Dioxide 28 mmol/L (22-30); Chloride 103 mmol/L (98-107); Estimated CRCL calculation 63 ml/min; Estimated Glomerular Filt Rate > 60; Glucose 106 mg/dL (65-110); Potassium 4.3 mmol/L (3.4-5.0); Sodium 142 mmol/L (137-145)
[2021-03-27 02:50] LABS: Ethanol 303 mg/dL (<10)
[2021-03-27 05:08] LABS: Amphetamine Screen Urine Negative (Negative); Barbiturate Screen Urine Negative (Negative); Benzodiazepines Screen Urine Positive (Negative); Cannabinoid Screen Urine Negative (Negative); Cocaine Screen Urine Negative (Negative); Methadone Screen Urine Negative (Negative); Opiate Screen Urine Negative (Negative); Phencyclidine Screen Urine Negative (Negative)
[2021-03-27 06:54] VITALS: BP 119/76; PULSE 80; RESP 18; O2SAT 99
[2021-03-27 07:52] LABS: Ethanol 202 mg/dL (<10)
--- NOTE | 2021-03-27 07:54 | PC.NURSE ---
pt standing in bird asking if he can go home. denies any suicidal ideation at this time. states I just had too much to drink, I am fine now
[2021-03-27 11:04] LABS: Ethanol 114 mg/dL (<10)
[2021-03-27 14:27] LABS: Ethanol 40 mg/dL (<10)
[2021-03-27 14:55] VITALS: BP 127/78; PULSE 62; RESP 18; O2SAT 99
== END 2021-03-27 14:57 | disposition home or self-care (01) ==
PROVIDERS: Emergency Medicine; Emergency Provider Emergency Medicine; PCP Internal Medicine Gastroenterology
DX: F10.129 Alcohol abuse with intoxication, unspecified (principal); Y90.8 Blood alcohol level of 240 mg/100 ml or more; F32.9 Major depressive disorder, single episode, unspecified; F17.210 Nicotine dependence, cigarettes, uncomplicated
CPT/HCPCS: 36415; 80053; 80307; 81001; 84443; 85025; 99284

== ENCOUNTER 2021-04-08 13:53 | Inpatient (IN) | payer MEDICARE, OTHER, MEDICAID, SELFPAY ==
[2021-04-08] VITALS (7 sets, daily range): BP systolic 109–123; BP diastolic 59–81; PULSE 67–85; RESP 13–20; TEMP 36.1–36.2; O2SAT 97–99; BMI 24.3
--- NOTE | ~2021-04-08 | XR_ITS ---
XR chest 2V 04/08/2021 15:26 Indication: Chest wall pain. Seizure. Procedure: 2 view chest Comparison: Comparison to multiple prior studies sequentially, with oldest reviewed study dated 10/05. Findings: Chronic right basilar atelectasis/scarring. Calcified granuloma right perihilar region. No acute focal pneumonia, edema, pleural effusion or pneumothorax. No acute osseous abnormality. Impression: 1: No acute cardiopulmonary disease. Reviewed, dictated and finalized at location A. DING INSPECTOR Impression: 1: No acute cardiopulmonary disease.
--- NOTE | ~2021-04-08 | CT_ITS ---
EXAMINATION: CT brain wo con, CT cervical spine wo con EXAM DATE: 04/08/2021 16:52 (accession [id number]), 04/08/2021 16:53 (accession [id number]) INDICATION: fall, head injury seizure. TECHNIQUE: Spiral CT of the head was performed without contrast. Axial, coronal and sagittal images were reviewed. Spiral CT of the cervical spine was performed without contrast. Axial images were rev iewed. Coronal and sagittal reformatted images were also reviewed. The dose-length product (DLP) fo r this examination was 605.33 (accession [id number]), 347.36 (accession [id number]) mGy-cm. The exposure was tailored according to patient size, and iterative reconstruction (ASIR) was used as additional dose reduction technique. 10/05/2020, 08/17/2017. FINDINGS: HEAD CT: There is old moderate-sized left frontal lobe infarction inferiorly. There is no acute intra parenchymal hemorrhage. No evidence of intraparenchymal brain mass lesion. No evidence of acute inf arction. There is moderate periventricular and subcortical hypodensity, nonspecific but probably rela cornelio to small vessel ischemic disease. There is moderate prominence of the sulci and ventricles rela cornelio to cerebral atrophy. There is no mass effect or midline shift. There is no obstructive hydroce phalus suspected. There are no extra-axial collections. There are no acute calvarial fractures. Th e orbits are unremarkable. Soft tissue is unremarkable. The visualized sinuses and mastoid air cell s are well aerated. Again there is stable appearance to the extra-axial left occipital mass which ruby ears to arise were reviewed from the inner table of the calvarium, probably benign process such as gi ant arachnoid granulation or venous agudelo. This measures 3 cm in diameter by 1.5 cm in thickness. CERVICAL CT: There is no evidence of acute cervical fracture. The odontoid process is intact. Pre-d ens space is normal. Prevertebral soft tissue is normal. There are no soft tissue abnormalities aroldo ntified. There is no disc space widening or traumatic vertebral body subluxation suspected. Large m id and lower cervical endplate osteophytes. Moderate to severe lower cervical disc disease and at C3- 4. Overall mild to moderate cervical arthropathy. A detailed level by level evaluation of spondylosi s can be added as addendum if requested. IMPRESSION: 1. No acute intracranial findings or cervical fracture. 2. 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 3. Stable appearance to calvarial lesion, favors benign histology. 4. Cervical spondylosis. Reviewed, dictated and finalized at [facility]. D MARKETING SPECIALIST IMPRESSION: 1. No acute intracranial findings or cervical fracture. 2. 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 3. Stable appearance to calvarial lesion, favors benign histology. 4. Cervical spondylosis.
--- NOTE | ~2021-04-08 | CT_ITS ---
EXAMINATION: CT abdomen pelvis w con DATE: 04/08/2021 16:54 INDICATION: Abdominal pain following seizure, collapse/fall TECHNIQUE: Computed tomography (CT) of the abdomen and pelvis was performed with 100 CC Omnipaque 350 intravenous contrast. Automated exposure control and iterative reconstruction technique were employe d. Exam dose: 810.53 mGy-cm total exam DLP. COMPARISON: None. FINDINGS: 2 cm left lower lobe pneumatocele. There is mild primarily dependent atelectasis in the low er lobes. Normal heart size. No pericardial or pleural effusion. There is diffuse hepatic steatosis. There are multiple gallstones. The gallbladder is contracted. No bile duct or pancreatic duct dilatation. No pancreatic mass lesion or calcification. Multiple calcified splenic granulomas. Normal morphology of the adrenal glands. No renal mass lesion or urinary tract calculus or hydroureteronephrosis. Prostate enlargement and multiple prostate calcifications. There is moderate diffuse thickening of th e urinary bladder wall. Diverticulosis of the colon; no CT evidence of diverticulitis. No bowel obstruction, bowel wall thick ening, pneumatosis or intraperitoneal free air is evident. There is atherosclerotic calcification of the abdominal aorta but no aneurysm or dissection. No intra peritoneal or retroperitoneal or pelvic mass lesion or adenopathy or ascites is evident. Very small fat-containing left inguinal hernia. Small fat-containing umbilical hernia. Postoperative change of the left acetabulum. There is severe degenerative disc disease at L4-5 and particularly L5-S1. No suspicious osteolytic or osteoblastic lesions are noted. IMPRESSION: Hepatic steatosis Cholelithiasis Diverticulosis of the colon; no CT evidence of diverticulitis Reviewed, dictated and finalized at [facility]. Reviewed, dictated and finalized at [facility]. 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
--- NOTE | 2021-04-08 14:13 | ECG_ITS ---
Measurements Intervals [place] Rate: P: [place]: QRS: QRSD: T: QT: QTc: Interpretive Statements NORMAL SINUS RHYTHM. NORMAL ECG Electronically Signed On 04-09-2021 13:58:42 SAS SQL DEVELOPER by Jadiel Barrios M.D.
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
[2021-04-08 15:32] LABS: Basophils Percent Auto 0.6 % (0.2-1.2); Eosinophils Percent Auto 0.6 % (0-4.4); Hematocrit 37.3 % (42.0-52.0); Hemoglobin 12.4 g/dL (14.0-18.0); Immature Granulocyte Absolute 0.01 K/mm3 (0.00-0.031); Immature Granulocyte Percent A 0.3 % (0-0.5); Lymphocytes Absolute Auto 1.08 K/mm3 (0.9-3.2); Lymphocytes Percent Auto 29.8 % (18.3-44.2); Mean Corpuscular HGB Conc 33.2 g/dl (32-36); Mean Corpuscular Volume 96.4 fl (80-100); Mean Platelet Volume 10.9 fl (7.4-10.4); Monocytes Absolute Auto 0.2 K/mm3 (0.1-0.6); Monocytes Percent Auto 6.3 % (2.6-8.5); Neutrophils Absolute Auto 2.3 K/mm3 (1.3-6.7); Neutrophils Percent Auto 62.4 % (45.5-73.1); Platelet Count Result 103 k/mm3 (150-375); Red Blood Count 3.87 M/mm3 (4.6-6.20); Red Cell Distribution Width 13.6 % (11.5-14.5); White Blood Count 3.6 K/mm3 (4.5-10.0)
[2021-04-08 15:40] LABS: Lactic Acid Reflex 2.2 mmol/L (0.7-2.1)
[2021-04-08 15:54] LABS: Ethanol 404 mg/dL (<10)
[2021-04-08 16:10] LABS: Alanine Aminotransferase 86 U/L (4-50); Alkaline Phosphatase 101 U/L (38-126); Anion Gap 13 mmol/L (8-16); Aspartate Amino Transferase 229 U/L (17-59); Bilirubin,Total 0.6 mg/dL (0.2-1.3); Blood Urea Nitrogen 16 mg/dL (9-20); Calcium 7.8 mg/dL (8.4-10.2); Carbon Dioxide 27 mmol/L (22-30); Chloride 107 mmol/L (98-107); Estimated CRCL calculation 70 ml/min; Estimated Glomerular Filt Rate > 60; Glucose 106 mg/dL (65-110); Potassium 3.6 mmol/L (3.4-5.0); Sodium 147 mmol/L (137-145)
[2021-04-08] MEDS: SODIUM CHLORIDE 0.9% IV 1,000 ML 150 ML IV CONT (16:58)
[2021-04-08] MEDS: levETIRAcetam 1000MG/NACL100ML 1,000 MG/100 ML BAG 400 MG IVPB (17:38)
[2021-04-08 18:20] LABS: Reflex Lactic Acid Yes or No Add Lactic
[2021-04-08 18:56] LABS: Lactic Acid 1.9 mmol/L (0.7-2.1)
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
[2021-04-08] MEDS: LORazepam INJ (*CRX) 2 MG/ML VIAL IV PUSH (19:32)
[2021-04-08 19:34] LABS: Prothrombin Time 13.1 Seconds (11.1-14.7)
[2021-04-08 19:35] LABS: Partial Thromboplastin Time 28.6 SECONDS (22.3-36.8)
--- NOTE | 2021-04-08 20:51 | PC.NURSE ---
Report called to Lucila HERNANDEZ to receive patient to 231 bed 1.
--- NOTE | 2021-04-08 21:20 | ADMGEN ---
This patient, Carlos Atkins, was admitted to IMU Room 231-01 at 2115. Patient/family oriented to hospital policies and general routines including ID bracelet, bed and alarms, visiting hours, pain management, procedures, bathroom and other care routines, personal items, smoking policy, room service/diet, and visiting hours. Information on how to activate the Rapid Response Team has been discussed. Patient/Family are encouraged to report perceived risks to care and to ask questions if they do not understand what they are told or what they should do.
--- NOTE | 2021-04-08 21:34 | ADMGEN ---
This patient, Carlos Atkins, [facility] . Patient/family oriented to hospital policies and general routines including ID bracelet, bed and alarms, visiting hours, pain management, procedures, bathroom and other care routines, personal items, smoking policy, room service/diet, and visiting hours. Information on how to activate the Rapid Response Team has been discussed. Patient/Family are encouraged to report perceived risks to care and to ask questions if they do not understand what they are told or what they should do.
[2021-04-08] MEDS: THIAMINE HCL INJ 100 MG, FOLIC ACID INJ 1 MG, MULTIVITAMINS-12 INJ VIAL 1 5 ML, MULTIVI... IV CONT (21:50)
[2021-04-09] VITALS (12 sets, daily range): BP systolic 109–136; BP diastolic 61–85; PULSE 61–107; RESP 16–24; TEMP 36.4–36.9; O2SAT 91–99
--- NOTE | 2021-04-09 03:24 | PC.NURSE ---
patient is starting to sober up a little. while trying to assess patients status, several questions were asked, when asking the patient if he lived with someone, he stated: what does that have to do with my personal life. patient also stated that he hates this hospital and all the staff. he said that the staff all has attitude problems. he stated: that when he is more stable that he is leaving this place.
[2021-04-09 05:59] LABS: Eosinophils Percent Auto 1.5 % (0-4.4); Hematocrit 34.8 % (42.0-52.0); Hemoglobin 11.5 g/dL (14.0-18.0); Immature Granulocyte Absolute 0.01 K/mm3 (0.00-0.031); Immature Granulocyte Percent A 0.5 % (0-0.5); Immature Platelet Fraction Pct 7.8 % (0.9-11.2); Lymphocytes Absolute Auto 0.77 K/mm3 (0.9-3.2); Lymphocytes Percent Auto 38.5 % (18.3-44.2); Mean Corpuscular Hemoglobin 32.6 pg (26-34); Mean Corpuscular Volume 98.6 fl (80-100); Mean Platelet Volume 11.2 fl (7.4-10.4); Monocytes Absolute Auto 0.2 K/mm3 (0.1-0.6); Neutrophils Percent Auto 48.5 % (45.5-73.1); Platelet Count Result 73 k/mm3 (150-375); Red Blood Count 3.53 M/mm3 (4.6-6.20); Red Cell Distribution Width 13.5 % (11.5-14.5)
[2021-04-09 06:05] LABS: Alanine Aminotransferase 75 U/L (4-50); Albumin Level 3.4 g/dL (3.5-5.1); Alkaline Phosphatase 87 U/L (38-126); Anion Gap 11 mmol/L (8-16); Aspartate Amino Transferase 202 U/L (17-59); Bilirubin,Total 0.7 mg/dL (0.2-1.3); Blood Urea Nitrogen 12 mg/dL (9-20); Calcium 7.4 mg/dL (8.4-10.2); Carbon Dioxide 23 mmol/L (22-30); Chloride 107 mmol/L (98-107); Estimated CRCL calculation 108 ml/min; Estimated Glomerular Filt Rate > 60; Glucose 62 mg/dL (65-110); Potassium 3.1 mmol/L (3.4-5.0); Sodium 141 mmol/L (137-145)
[2021-04-09 11:01] LABS: Glucose Point of Care 134 mg/dl (65-105)
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
[2021-04-09] MEDS: busPIRone HCL 10 MG TABLET PO ×2 (12:09→18:06)
[2021-04-09] MEDS: PANTOPRAZOLE 40 MG TABLET PO (12:09)
[2021-04-09] MEDS: chlordiazePOXIDE (*CRX) 25 MG CAPSULE PO ×2 (12:09→21:43)
[2021-04-09] MEDS: SERTRALINE HCL 50 MG TABLET PO (12:09)
[2021-04-09] MEDS: THIAMINE HCL 100 MG TABLET PO (12:10)
[2021-04-09] MEDS: FOLIC ACID 1 MG TABLET PO (12:10)
[2021-04-09] MEDS: POTASSIUM CHLORIDE 20 MEQ TABLET 40 MEQ PO (12:10)
--- NOTE | 2021-04-09 12:43 | PC.NURSE ---
1130-pt states, that he is having suicidal ideation. He states, he is formulating a plan at times. Any potential items in patients room removed. 1220-called dry charge process attendant to inform of suicidal thoughts. 1240-Dr. Peace called regarding transfer to ICU for closer observation.
[2021-04-09 13:25] LABS: Add Urine Microscopic? YES; Appearance Urine Clear (Clear); Bilirubin Urine Negative (Negative); Blood Urine Negative (Negative); Color Urine Yellow (Yellow); Glucose Urine UA Negative (Negative); Ketones Urine 1+ mg/dL (Negative); Leukocyte Esterase Ur Negative LEU/UL (Negative); Mucus Urine Rare /lpf; Nitrate Urine Negative (Negative); Protein Urine Negative (Negative); RBC Urine 0-2 /hpf (0-2); Specific Grav Ur 1.025 (1.001-1.035); WBC Urine 0-3 /hpf
--- NOTE | 2021-04-09 13:39 | PC.NURSE ---
6821-report called to MARY Stoll in ICU
--- NOTE | 2021-04-09 13:40 | PC.NURSE ---
Patient received from 231 into ICU 4 as IMU overflow. Report received from MARY Alanis. Patient arrived with sitter at bedside. All personal belongings locked up. Patient instructed on suicide precautions.
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
[2021-04-09] MEDS: levETIRAcetam 500 MG TABLET PO (18:06)
[2021-04-10] VITALS (15 sets, daily range): BP systolic 94–137; BP diastolic 45–86; PULSE 64–88; RESP 14–22; TEMP 36.1–37; O2SAT 93–97
[2021-04-10 05:25] LABS: Eosinophils Percent Auto 1.8 % (0-4.4); Hematocrit 34.6 % (42.0-52.0); Hemoglobin 11.7 g/dL (14.0-18.0); Immature Platelet Fraction Pct 8.4 % (0.9-11.2); Lymphocytes Absolute Auto 0.82 K/mm3 (0.9-3.2); Mean Corpuscular HGB Conc 33.8 g/dl (32-36); Mean Corpuscular Hemoglobin 32.2 pg (26-34); Mean Corpuscular Volume 95.3 fl (80-100); Mean Platelet Volume 11.2 fl (7.4-10.4); Monocytes Absolute Auto 0.2 K/mm3 (0.1-0.6); Monocytes Percent Auto 10.1 % (2.6-8.5); Neutrophils Absolute Auto 1.2 K/mm3 (1.3-6.7); Neutrophils Percent Auto 52.1 % (45.5-73.1); Platelet Count Result 70 k/mm3 (150-375); Red Blood Count 3.63 M/mm3 (4.6-6.20); Red Cell Distribution Width 13.2 % (11.5-14.5); White Blood Count 2.3 K/mm3 (4.5-10.0)
[2021-04-10] MEDS: levETIRAcetam 500 MG TABLET PO ×2 (05:25→17:56)
[2021-04-10] MEDS: chlordiazePOXIDE (*CRX) 25 MG CAPSULE PO ×3 (05:25→21:09)
[2021-04-10 05:36] LABS: Alanine Aminotransferase 75 U/L (4-50); Albumin Level 3.3 g/dL (3.5-5.1); Alkaline Phosphatase 87 U/L (38-126); Anion Gap 2 mmol/L (8-16); Aspartate Amino Transferase 162 U/L (17-59); Bilirubin,Total 1.2 mg/dL (0.2-1.3); Blood Urea Nitrogen 14 mg/dL (9-20); Calcium 8.1 mg/dL (8.4-10.2); Carbon Dioxide 30 mmol/L (22-30); Chloride 103 mmol/L (98-107); Estimated CRCL calculation 92 ml/min; Estimated Glomerular Filt Rate > 60; Glucose 113 mg/dL (65-110); Lipase 71 U/L (23-300); Magnesium 1.5 mg/dL (1.6-2.3); Phosphorus 2.9 mg/dL (2.5-4.5); Potassium 3.6 mmol/L (3.4-5.0); Sodium 135 mmol/L (137-145)
[2021-04-10 07:03] LABS: Hepatitis B Surface Antigen Negative (Negative)
[2021-04-10 07:08] LABS: HAV RESULT Negative (Negative); Hepatitis B Core IgM Result Negative (Negative)
[2021-04-10 07:30] LABS: Hepatitis C Virus Antibody Reactive (Negative)
[2021-04-10] MEDS: busPIRone HCL 10 MG TABLET PO ×3 (07:55→16:01)
[2021-04-10] MEDS: PANTOPRAZOLE 40 MG TABLET PO (07:55)
[2021-04-10] MEDS: MULTIVITAMINS /C LUTEIN (CENTRUM SILVER) TABLET *BKC 1 TAB PO (07:55)
[2021-04-10] MEDS: THIAMINE HCL 100 MG TABLET PO (07:56)
[2021-04-10] MEDS: FOLIC ACID 1 MG TABLET PO (07:56)
[2021-04-10] MEDS: SERTRALINE HCL 50 MG TABLET PO (07:56)
--- NOTE | 2021-04-10 10:55 | WPDNEUROLOGY ---
Neurology EEG Report General Information Date of Study: 04/09/21 TEST eeg DIAGNOSIS possible seizures CONDITION OF RECORDING drowsy and sleep EEG NUMBER [id number] CLINICAL HISTORY patient had a post tubal seizure due to alcohol
--- NOTE | 2021-04-10 11:01 | WPDNEUROLOGY ---
Neurology EEG Report General Information Date of Study: 04/09/21 TEST eeg DIAGNOSIS Possible seizures CONDITION OF RECORDING drowsy and sleep EEG NUMBER [id number] CLINICAL HISTORY patient had a seizure due to alcohol EEG DESCRIPTION basic resting occipital frequency consists of large well-organized low to medium voltage 8 to 10 hertz per 2nd alpha admixed with low-voltage 15 to 18 hertz per 2nd beta. During drowsiness low-voltage beta activity seen diffusely admixed with waxing and waning posterior alpha rhythm. Bilateral symmetrical sleep activity seen during sleep. Hyperventilation not done. Photic stimulation not done. Non paroxysmal. Nonfocal. Nonlateralizing. IMPRESSION No significant abnormalities noted
[2021-04-10 11:28] LABS: Folic Acid 15.1 ng/mL (2.76->20)
[2021-04-10] MEDS: LORazepam INJ (*CRX) 2 MG/ML VIAL 1 MG IV PUSH ×2 (15:59→20:15)
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
--- NOTE | 2021-04-10 16:34 | ECG_ITS ---
Measurements Intervals [place] Rate: 70 P: 34 [place]: 114 QRS: 1 QRSD: 86 T: 16 QT: 420 QTc: 454 Interpretive Statements SINUS RHYTHM WITH SHORT [place] INTERVAL ABNORMAL ECG COMPARED TO ECG 03/18/2021 23:39:18 NO SIGNIFICANT CHANGES Electronically Signed On 04-11-2021 10:21:25 BOILER TESTING TECHNICIAN by Jadiel Barrios M.D.
[2021-04-10] MEDS: MAGNESIUM SULF 2 GM/WATER 50ML 2 GM/50 ML BAG IVPB (18:00)
[2021-04-10 18:27] LABS: Troponin I < 0.012 ng/mL (0.000-0.034)
[2021-04-10 18:57] LABS: HIV 1/2 Ab P24 Ag Result Negative (Negative)
[2021-04-11] VITALS (7 sets, daily range): BP systolic 119–138; BP diastolic 77–81; PULSE 61–102; RESP 19–20; TEMP 36.4; O2SAT 91–97
[2021-04-11 04:11] LABS: Eosinophils Absolute Auto 0.1 K/mm3 (0-0.3); Eosinophils Percent Auto 3.8 % (0-4.4); Hematocrit 34.4 % (42.0-52.0); Hemoglobin 11.5 g/dL (14.0-18.0); Immature Granulocyte Absolute 0.01 K/mm3 (0.00-0.031); Immature Granulocyte Percent A 0.5 % (0-0.5); Immature Platelet Fraction Pct 9.8 % (0.9-11.2); Lymphocytes Absolute Auto 0.78 K/mm3 (0.9-3.2); Lymphocytes Percent Auto 36.8 % (18.3-44.2); Mean Corpuscular HGB Conc 33.4 g/dl (32-36); Mean Corpuscular Hemoglobin 31.9 pg (26-34); Mean Corpuscular Volume 95.6 fl (80-100); Mean Platelet Volume 11.2 fl (7.4-10.4); Monocytes Absolute Auto 0.2 K/mm3 (0.1-0.6); Monocytes Percent Auto 10.4 % (2.6-8.5); Neutrophils Percent Auto 48.5 % (45.5-73.1); Platelet Count Result 67 k/mm3 (150-375); Red Cell Distribution Width 13.2 % (11.5-14.5); White Blood Count 2.1 K/mm3 (4.5-10.0)
[2021-04-11 04:30] LABS: Alanine Aminotransferase 68 U/L (4-50); Albumin Level 3.3 g/dL (3.5-5.1); Alkaline Phosphatase 87 U/L (38-126); Anion Gap 2 mmol/L (8-16); Aspartate Amino Transferase 119 U/L (17-59); Bilirubin,Total 0.8 mg/dL (0.2-1.3); Blood Urea Nitrogen 10 mg/dL (9-20); Calcium 8.2 mg/dL (8.4-10.2); Carbon Dioxide 31 mmol/L (22-30); Chloride 104 mmol/L (98-107); Estimated CRCL calculation 92 ml/min; Estimated Glomerular Filt Rate > 60; Glucose 130 mg/dL (65-110); Magnesium 1.7 mg/dL (1.6-2.3); Potassium 3.5 mmol/L (3.4-5.0); Sodium 137 mmol/L (137-145)
[2021-04-11] MEDS: chlordiazePOXIDE (*CRX) 25 MG CAPSULE PO ×2 (05:13→13:45)
[2021-04-11] MEDS: THIAMINE HCL 100 MG TABLET PO (08:18)
[2021-04-11] MEDS: busPIRone HCL 10 MG TABLET PO ×2 (08:18→13:44)
[2021-04-11] MEDS: MULTIVITAMINS /C LUTEIN (CENTRUM SILVER) TABLET *BKC 1 TAB PO (08:18)
[2021-04-11] MEDS: FOLIC ACID 1 MG TABLET PO (08:18)
[2021-04-11] MEDS: levETIRAcetam 500 MG TABLET PO (08:18)
[2021-04-11] MEDS: PANTOPRAZOLE 40 MG TABLET PO (08:19)
[2021-04-11] MEDS: SERTRALINE HCL 50 MG TABLET PO (08:19)
[2021-04-11 09:01] LABS: EDCOVIDSCREEN Negative (Negative)
[2021-04-11] MEDS: MAGNESIUM OXIDE 400 MG TABLET PO (09:33)
--- NOTE | 2021-04-11 13:02 | WPDNEUROPN ---
Subjective Date/time seen: 04/11/21 13:02 follow-up for the chronic alcoholism with posttraumatic stress disorder, EEG is normal, sitting in the chair following instructions very well his speech is not dysphasic not dysarthric not dysphonic pupils round regular extraocular movements are full with no nystagmus facial sensation intact face symmetrical tongue midline motor examination revealed no drift of upper extremities against gravity with eyes closed able to move both lower extremities well and the reflexes are symmetrical there is no evidence of ataxia or dysmetria on hgovke-ii-wkhx-to-finger treatment will be continued as such will benefit from the therapy for the complaints of the weakness in her lower extremities will also benefit from the EMG and nerve conduction study as an outpatient Objective Data Vital Signs Vital Signs: Vital Signs - 24 hr 04/10/21 14:00 04/10/21 15:50 04/10/21 16:00 Temperature Pulse Rate 71 74 Pulse Rate [Bilateral Pedal (Dorsalis Pedis) Palpation] 88 Respiratory Rate Blood Pressure 129/79 Pulse Oximetry 93 04/10/21 18:00 04/10/21 20:00 04/10/21 20:45 Temperature 36.3 C L Pulse Rate 75 80 Pulse Rate [Bilateral Pedal (Dorsalis Pedis) Palpation] 80 Respiratory Rate 18 Blood Pressure 123/78 Pulse Oximetry 95 97 04/10/21 22:00 04/11/21 00:00 04/11/21 02:00 Temperature 36.4 C Pulse Rate 68 74 68 Pulse Rate [Bilateral Pedal (Dorsalis Pedis) Palpation] 74 Respiratory Rate 19 Blood Pressure 119/79 Pulse Oximetry 97 04/11/21 04:00 04/11/21 06:00 04/11/21 08:00 Temperature 36.4 C Pulse Rate 62 61 67 Pulse Rate [Bilateral Pedal (Dorsalis Pedis) Palpation] 62 Respiratory Rate 20 19 Blood Pressure 125/77 138/81 Pulse Oximetry 97 04/11/21 08:13 Temperature Pulse Rate Pulse Rate [Bilateral Pedal (Dorsalis Pedis) Palpation] 62 Respiratory Rate Blood Pressure Pulse Oximetry Intake/Output Intake/Output: Intake & Output 04/08/21 04/09/21 04/10/21 04/11/21 23:59 23:59 23:59 23:59 Intake Total 1100 700 638 360 Output Total 1126 430 400 Balance 1100 -425 -305 -40 Meds/Results Medications: Active Medications Generic Name Dose Route Start Last Admin Trade Name Freq PRN Reason Stop Dose Admin Buspirone HCl 10 mg 04/09/21 13:00 04/11/21 08:18 Buspirone Hcl 10 Mg Tablet PO 10 mg TID YAAKOV Administration Chlordiazepoxide HCl 25 mg 04/09/21 14:00 04/11/21 05:13 Chlordiazepoxide (*Crx) 25 Mg Capsule PO 25 mg Q8HR YAAKOV Administration Folic Acid 1 mg 04/09/21 11:40 04/11/21 08:18 Folic Acid 1 Mg Tablet PO 1 mg DAILY YAAKOV Administration Levetiracetam 500 mg 04/09/21 06:00 04/11/21 08:18 Levetiracetam 500 Mg Tablet PO 500 mg Q12H YAAKOV Administration Lorazepam 1 mg 04/08/21 19:10 04/10/21 20:15 Lorazepam Inj (*Crx) 2 Mg/Ml Vial IV PUSH 1 mg Q2-4H PRN Administration Withdrawal Lorazepam 2 mg 04/08/21 19:15 04/08/21 19:32 Lorazepam Inj (*Crx) 2 Mg/Ml Vial IV PUSH 2 mg Q2-4H PRN Administration Alcohol Withdrawal Magnesium Oxide 400 mg 04/11/21 09:00 04/11/21 09:33 Magnesium Oxide 400 Mg Tablet PO 400 mg DAILY YAAKOV Administration Multivitamins/Minerals 1 tab 04/10/21 09:00 04/11/21 08:18 Multivitamins /C Lutein (Centrum Silver) Tablet *Bkc PO 05/10/21 08:59 1 tab DAILY YAAKOV Administration Ondansetron HCl 4 mg 04/08/21 17:56 Ondansetron Inj 4 Mg/2 Ml Vial IV PUSH Q4H PRN Nausea Pantoprazole Sodium 40 mg 04/09/21 11:40 04/11/21 08:19 Pantoprazole 40 Mg Tablet PO 40 mg DAILY YAAKOV Administration Sertraline HCl 50 mg 04/09/21 11:40 04/11/21 08:19 Sertraline Hcl 50 Mg Tablet PO 50 mg DAILY YAAKOV Administration Thiamine HCl 100 mg 04/09/21 11:40 04/11/21 08:18 Thiamine Hcl 100 Mg Tablet PO 100 mg QAM YAAKOV Administration Radiology Results: ITS Impressions Chest X-Ray 04/08/21 15:27 Impression: 1
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
[2021-04-11] MEDS: LORazepam INJ (*CRX) 2 MG/ML VIAL 1 MG IV PUSH (13:44)
[2021-04-14 13:32] LABS: Hepatitis C RNA, Quant PCR 1330000 IU/mL
--- NOTE | 2021-04-15 09:54 | PC.NURSE ---
Faxed HCV RNA results to Dr. Lexi Hoff. HCV RNA PCR- [id number]. Dr. Nata craig.
--- NOTE | 2021-04-25 10:31 | PC.NURSE ---
HEP C RNA- elevated at [id number] and HCV RNA PCR is WNL at 6.12.; Dr. Peace aware of findings. Faxed to Dr. Hoff.
== END 2021-04-11 15:42 | DRG 897 ==
LOC: ANHED 14:26 → ANHIMU 22:04 → ANHICU 04-09 15:52 → ANHIMU 04-11 07:54
PROVIDERS: Nurse Practitioner Adult Health; Admitting Provider Family Medicine; Emergency Provider Emergency Medicine; PCP Internal Medicine Gastroenterology; Visit Provider Internal Medicine
DX: F10.239 Alcohol dependence with withdrawal, unspecified (principal); D61.818 Other pancytopenia; R45.851 Suicidal ideations; F10.229 Alcohol dependence with intoxication, unspecified; R56.9 Unspecified convulsions; F43.12 Post-traumatic stress disorder, chronic; F17.210 Nicotine dependence, cigarettes, uncomplicated; Z20.822 Contact with and (suspected) exposure to COVID-19; Z83.3 Family history of diabetes mellitus; Z82.5 Family history of asthma and other chronic lower respiratory diseases; Z79.899 Other long term (current) drug therapy; F43.10 Post-traumatic stress disorder, unspecified; Y90.8 Blood alcohol level of 240 mg/100 ml or more; R79.89 Other specified abnormal findings of blood chemistry; K80.20 Calculus of gallbladder without cholecystitis without obstruction; Z29.9 Encounter for prophylactic measures, unspecified; R07.89 Other chest pain; B19.20 Unspecified viral hepatitis C without hepatic coma; R06.02 Shortness of breath; R42 Dizziness and giddiness; W19.XXXA Unspecified fall, initial encounter
CPT/HCPCS: 36415; 70450; 71046; 72125; 74177; 80053; 80074; 80307; 81001; 82607; 82746; 82948; 83605; 83690; 83735; 84100; 84484; 85025; 85055; 85610; 85730; 86703; 87426; 87522; 93005; 95816; 96361; 96374; 96375; 97110; 97116; 97161; 97165; 97535; 99285; A9270; C9803; G0378; G0432; J1953; J2060; J3411; J3475; J7030; J7120; Q9967

== ENCOUNTER 2021-04-15 07:47 | Emergency (ER) | payer MEDICARE, MEDICAID, SELFPAY ==
--- NOTE | ~2021-04-15 | XR_ITS ---
EXAMINATION: XR pelvis 1-2V DATE: 04/15/2021 09:40 INDICATION: Pelvis injury. Fall. TECHNIQUE: An anteroposterior view of the pelvis was obtained. COMPARISON: CT abdomen and pelvis 04/08/2021 FINDINGS: Bone alignment is normal. No fracture. Joint spaces are well maintained. There is plate and screw fixation of left acetabulum. There is mild osteoarthritis of the hips. There is mild lumbar sp ondylosis. IMPRESSION: 1. Mild osteoarthritis of the hips. Reviewed, dictated and finalized at location A. TESTER
--- NOTE | ~2021-04-15 | CT_ITS ---
EXAMINATION: CT brain wo con, CT cervical spine wo con EXAM DATE: 04/15/2021 09:03 INDICATION: Fall, head injury, laceration. TECHNIQUE: Spiral CT of the head was performed without contrast. Axial, coronal and sagittal images were reviewed. Spiral CT of the cervical spine was performed without contrast. Axial images were rev iewed. Coronal and sagittal reformatted images were also reviewed. The dose-length product (DLP) fo r this examination was 605.33 (accession [id number]), 364.22 (accession [id number]) mGy-cm. The exposure was tailored according to patient size, and iterative reconstruction (ASIR) was used as additional dose reduction technique. Comparison is made to prior examination from 04/08/2021, 08/17/2017 . FINDINGS: HEAD CT: Moderate size region of left frontal lobe encephalomalacia from prior ischemic event or trau ma. There is no acute intraparenchymal hemorrhage. No evidence of intraparenchymal brain mass lesion . No evidence of acute infarction. There is mild to moderate periventricular and subcortical hypoden sity, nonspecific but probably related to small vessel ischemic disease. There is mild to moderate prominence of the sulci and ventricles related to cerebral atrophy. There is no mass effect or mid line shift. There is no obstructive hydrocephalus suspected. There are no extra-axial collections. There are no acute calvarial fractures. The orbits are unremarkable. Small to moderate-sized fronta l scalp hematoma. The visualized sinuses and mastoid air cells are well aerated. Left occipital nikko rial osteolytic region involving the inner table measuring 3 cm diameter by 1.5 cm in thickness uncha nged, could be giant arachnoid granulation or venous agudelo. Stability since 2018 suggests benign proce ss. CERVICAL CT: Large bridging mid and lower cervical endplate osteophytes. There is no evidence of acut e cervical fracture. The odontoid process is intact. Pre-dens space is normal. Prevertebral soft t issue is normal. There are no soft tissue abnormalities identified. There is no disc space widening or traumatic vertebral body subluxation suspected. Overall mild to moderate cervical arthropathy. Mo derate to severe disc disease C3-4 and lower cervical levels. A detailed level by level evaluation of spondylosis can be added as addendum if requested. IMPRESSION: 1. No acute intracranial findings or cervical fracture. 2. Moderate-sized region left frontal lobe encephalomalacia. 3. Calvarial inner table mass unchanged. 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 4. Microangiopathy, atrophy. 5. Spondylosis. Reviewed, dictated and finalized at location A. NCIAL DIRECTOR IMPRESSION: 1. No acute intracranial findings or cervical fracture. 2. Moderate-sized region left frontal lobe encephalomalacia. 3. Calvarial inner table mass unchanged. 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 4. Microangiopathy, atrophy. 5. Spondylosis.
[2021-04-15 07:50] VITALS: BP 135/86; PULSE 79; RESP 17; TEMP 36.4; O2SAT 100
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
[2021-04-15 09:33] LABS: Ethanol < 10 mg/dL (<10)
--- NOTE | 2021-04-15 10:27 | PCCCNOTE ---
Dr. Jones ask CC to determine if pt is willing and able to be place. History: pt transferred from [facility] 04[facility] alcohol abuse department and was admitted there until 04/14/21; Pt seen here for fall with head laceration. Dr. Perez has cleared pt to be discharged if placement not possible. Attempting placement currently.
--- NOTE | 2021-04-15 11:20 | PC.NURSE ---
pt accepted to [facility]. Thiago form Care Coordination currently working on number for report.
--- NOTE | 2021-04-15 11:41 | PCCCNOTE ---
Pt states is willing to be placed in nursing facility ([facility]). [facility] sent info and has accepted pt. Dr. Jones notified and information on report given to January charge nurse.
--- NOTE | 2021-04-15 11:58 | PC.NURSE ---
Report called to snf for transfer
--- NOTE | 2021-04-15 12:05 | PC.NURSE ---
Called [facility] for transportation. Forest Worker from rehab will be here shortly for pt.
[2021-04-15 12:46] VITALS: BP 141/78; PULSE 78; RESP 16; O2SAT 98
== END 2021-04-15 12:47 ==
PROVIDERS: Emergency Provider Emergency Medicine; PCP Internal Medicine Gastroenterology
DX: S01.01XA Laceration without foreign body of scalp, initial encounter (principal); Z91.81 History of falling; K70.10 Alcoholic hepatitis without ascites; F10.10 Alcohol abuse, uncomplicated; F32.A Depression, unspecified; F43.12 Post-traumatic stress disorder, chronic; Z86.19 Personal history of other infectious and parasitic diseases; M16.0 Bilateral primary osteoarthritis of hip; M47.812 Spondylosis without myelopathy or radiculopathy, cervical region; Y90.0 Blood alcohol level of less than 20 mg/100 ml; W18.39XA Other fall on same level, initial encounter
CPT/HCPCS: 12002; 36415; 70450; 72125; 72170; 80307; 99284

== ENCOUNTER 2021-05-12 13:25 | Emergency (ER) | payer MEDICARE, MEDICAID, SELFPAY ==
--- NOTE | ~2021-05-12 | XR_ITS ---
EXAMINATION: XR elbow LT min 3V EXAM DATE: 05/12/2021 13:43 INDICATION: Fall, left elbow swelling, pain, limited ROM . TECHNIQUE: Left elbow frontal, lateral with flexion, and oblique projections obtained and reviewed. There is no prior study for comparison. FINDINGS: Left elbow anterior humeral line intact. There are no acute fractures or dislocations aroldo ntified. There is no subcutaneous gas. There is soft tissue swelling over the olecranon. There are no radiopaque foreign bodies. IMPRESSION: 1. XR elbow LT min 3V exam without acute osseous findings. 2. Soft tissue swelling. Reviewed, dictated and finalized at location A.
[2021-05-12 13:30] VITALS: BP 127/72; PULSE 93; RESP 17; TEMP 36.4; O2SAT 96
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
--- NOTE | 2021-05-12 14:47 | PC.NURSE ---
EDP at bedside.
--- NOTE | 2021-05-12 15:14 | PC.NURSE ---
Attempted to contact all 3 of pt's emergency contacts without answer.
--- NOTE | 2021-05-12 15:34 | PC.NURSE ---
Unable to dc pt due to etoh, pt unable to say where he is or why he is here. Smells of etoh. ED charge miguel craig, pt to be clinically sober prior to dc.
--- NOTE | 2021-05-12 17:44 | PC.NURSE ---
Pt awaiting meal tray, pt moved to H3, fall precautions moved with pt.
--- NOTE | 2021-05-12 18:25 | PC.NURSE ---
Pt able to ambulate with steady gait at this time, a&ox4, pink, warm and dry, speech clear. EDP informed and reports pt to be dc jen. ED charge miguel updated and agrees.
[2021-05-12 18:29] VITALS: BP 154/78; PULSE 78; RESP 18; O2SAT 100
== END 2021-05-12 18:29 | disposition home or self-care (01) ==
LOC: ANHED 15:10
PROVIDERS: Emergency Provider Emergency Medicine; PCP Internal Medicine Gastroenterology
DX: F10.10 Alcohol abuse, uncomplicated (principal); S50.02XA Contusion of left elbow, initial encounter; F17.210 Nicotine dependence, cigarettes, uncomplicated; F43.12 Post-traumatic stress disorder, chronic; F32.A Depression, unspecified; W19.XXXA Unspecified fall, initial encounter
CPT/HCPCS: 73080; 99283

== ENCOUNTER 2021-07-20 15:19 | Emergency (ER) | payer MEDICARE, MEDICAID, SELFPAY ==
--- NOTE | ~2021-07-20 | CT_ITS ---
EXAMINATION: CT cervical spine wo con DATE: 07/20/2021 16:51 INDICATION: fall TECHNIQUE: Computed tomography (CT) of the cervical spine was performed without intravenous contrast. Automated exposure control and iterative reconstruction technique were employed. The dose-length pro duct was 402.88 mGy-cm. COMPARISON: 04/15/2021 FINDINGS: Counting reference: Craniocervical junction. There are seven cervical type vertebral bodies. Anatomic Variants: None. Vertebral Body Alignment: Intact. Craniocervical junction: Moderate degenerative change. Alignment intact. Osseous structures/fracture: No evidence of a lytic or blastic process in the visualized spine. N o evidence of acute fracture. Cervical soft tissues: The paraspinal soft tissues planes are maintained. Degenerative changes: Multilevel severe degenerative disc disease including prominent anterior osteop hytes. IMPRESSION: No acute fracture or traumatic malalignment in the cervical spine. Reviewed, dictated and finalized at location K.
--- NOTE | ~2021-07-20 | CT_ITS ---
EXAMINATION: CT brain wo con DATE: 07/20/2021 16:51 INDICATION: fall . TECHNIQUE: Computed tomography (CT) of the head was performed without intravenous contrast. The mA wa s adjusted according to patient size. Iterative reconstruction technique was employed. The dose-lengt h product was 605.33 mGy-cm. COMPARISON: 04/15/2021. FINDINGS: No acute intracranial hemorrhage or extra-axial fluid collection. No hydrocephalus, mass, or herniation. No acute ischemic infarct. Unremarkable dural venous sinus attenuation. No acute osseous abnormality. The aerated spaces are clear. Mild atrophy and moderate chronic white matter change. Atherosclerotic intracranial calcifications. IMPRESSION: No acute intracranial process. Reviewed, dictated and finalized at location K.
--- NOTE | ~2021-07-20 | CT_ITS ---
EXAMINATION: CT chest abdomen pelvis wo con DATE: 07/20/2021 16:51 INDICATION: fall . TECHNIQUE: Computed tomography (CT) of the chest, abdomen, and pelvis was performed without intraveno us contrast. Automated exposure control and iterative reconstruction technique were employed. The dos e-length product was 1140.29 mGy-cm. COMPARISON: 04/08/2021 FINDINGS: CHEST: No thoracic aortic injury. No mediastinal hematoma. No pericardial effusion. No acute lung injury. No pleural effusion or pneumothorax. Hiatal hernia. ABDOMEN/PELVIS: No solid organ injury. No evidence of bowel or mesenteric injury. No free fluid or free air. No retroperitoneal hematoma. Pelvic contents are atraumatic. Steatosis. Cholelithiasis. Diverticulosis. Bladder wall thickening likely due to outlet obstruction f rom prostatomegaly. Left posterior column fixation hardware. MUSCULOSKELETAL: No acute fracture. No fracture or traumatic malalignment of the thoracic or lumbar spine. IMPRESSION: No acute process detected in the chest, abdomen, or pelvis. Reviewed, dictated and finalized at location K.
[2021-07-20 15:23] VITALS: BP 138/103; PULSE 106; RESP 17; TEMP 36.9; O2SAT 94
[2021-07-20 15:28] VITALS: PULSE 101
--- NOTE | 2021-07-20 15:35 | ECG_ITS ---
Measurements Intervals [place] Rate: 84 P: 46 VT: 121 QRS: 11 QRSD: 110 T: 64 QT: 375 QTc: 443 Interpretive Statements SINUS RHYTHM POSSIBLE RIGHT VENTRICULAR CONDUCTION DELAY [RSR (QR) IN V1/V2] NONSPECIFIC ST ABNORMALITY [0.05+ mV ST ELEVATION] ABNORMAL ECG COMPARED TO ECG 04/10/2021 16:48:19 ST (T WAVE) DEVIATION NOW PRESENT Electronically Signed On 07-21-2021 12:32:35 CDT by Jadiel Barrios M.D.
[2021-07-20 16:21] LABS: Basophils Percent Auto 0.2 % (0.2-1.2); Eosinophils Percent Auto 0.2 % (0-4.4); Hematocrit 36.8 % (42.0-52.0); Hemoglobin 12.3 g/dL (14.0-18.0); Immature Granulocyte Absolute 0.02 K/mm3 (0.00-0.031); Immature Granulocyte Percent A 0.3 % (0-0.5); Immature Platelet Fraction Pct 7.1 % (0.9-11.2); Lymphocytes Absolute Auto 1.51 K/mm3 (0.9-3.2); Lymphocytes Percent Auto 23.3 % (18.3-44.2); Mean Corpuscular HGB Conc 33.4 g/dl (32-36); Mean Corpuscular Volume 89.8 fl (80-100); Mean Platelet Volume 10.8 fl (7.4-10.4); Monocytes Absolute Auto 0.4 K/mm3 (0.1-0.6); Monocytes Percent Auto 6.2 % (2.6-8.5); Neutrophils Absolute Auto 4.5 K/mm3 (1.3-6.7); Neutrophils Percent Auto 69.8 % (45.5-73.1); Platelet Count Result 104 k/mm3 (150-375); White Blood Count 6.5 K/mm3 (4.5-10.0)
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
[2021-07-20 16:30] LABS: Alanine Aminotransferase 80 U/L (6-50); Albumin Level 4.5 g/dL (3.5-5.1); Alkaline Phosphatase 136 U/L (38-126); Anion Gap 15 mmol/L (8-16); Aspartate Amino Transferase 179 U/L (17-59); Bilirubin,Total 1.2 mg/dL (0.2-1.3); Blood Urea Nitrogen 14 mg/dL (9-20); Calcium 8.6 mg/dL (8.4-10.2); Carbon Dioxide 25 mmol/L (22-30); Chloride 98 mmol/L (98-107); Estimated CRCL calculation 84 ml/min; Estimated Glomerular Filt Rate > 60; Glucose 122 mg/dL (65-110); Lipase 66 U/L (23-300); Potassium 3.5 mmol/L (3.4-5.0); Sodium 138 mmol/L (137-145)
[2021-07-20 16:35] LABS: INR 1.1; Prothrombin Time 13.8 Seconds (11.1-14.7)
[2021-07-20 16:36] LABS: Partial Thromboplastin Time 27.7 SECONDS (22.3-36.8)
[2021-07-20 16:42] LABS: Troponin I < 0.012 ng/mL (0.000-0.034)
[2021-07-20 16:57] LABS: Ethanol 350 mg/dL (<10)
[2021-07-20 19:22] LABS: Troponin I < 0.012 ng/mL (0.000-0.034)
--- NOTE | 2021-07-20 19:46 | PC.NURSE ---
Patient was in his doorway when Dr. Ascencio approached the patient asking if he needed anything. Patient told Dr. Ascencio he is depressed and suicidal, however patient remains intoxicated at this time. MARY Pedro, charge nurse aware of patient statements to Dr. Ascencio, decision made to place patient in a safe environment and into room 10. Patient care report was given to MARY Farmer and all questions answered at this time.
[2021-07-20] MEDS: SODIUM CHLORIDE 0.9% IV 1,000 ML 999 ML IV CONT (19:52)
[2021-07-20] MEDS: THIAMINE HCL 200 MG/2 ML VIAL 100 MG IV PUSH (19:53)
--- NOTE | 2021-07-20 19:58 | PC.NURSE ---
Pt moved to ED [address] Ascencio he was suicidal. Pt remains intoxicated and prior to room change, standing at nurses station yelling at staff present d/t 'being too happy'. Per EDP Silva, pt ok to be in unmonitored bed. Also per EDP, pt does not currently need a sitter unless he attempts to elope prior to clinical sobriety. Will reassess F[place] score upon sobriety. Bed alarm in place in ED10.
[2021-07-20 20:25] VITALS: BP 136/89; PULSE 99; RESP 16; O2SAT 98
[2021-07-20 21:27] LABS: Thyroid Stimulating Hormone 0.054 uIU/mL (0.465-4.680)
[2021-07-20 22:15] LABS: Troponin I < 0.012 ng/mL (0.000-0.034)
--- NOTE | 2021-07-20 22:43 | PC.NURSE ---
pt unable to complete Van assessment due to etoh pt in room sleeing, no needs at this time
[2021-07-20 23:13] LABS: Appearance Urine Clear (Clear); Bilirubin Urine Negative (Negative); Blood Urine Negative (Negative); Color Urine Yellow (Yellow); Glucose Urine UA Negative (Negative); Ketones Urine Negative (Negative); Leukocyte Esterase Ur 2+ LEU/UL (Negative); Nitrate Urine Negative (Negative); Protein Urine Negative (Negative)
[2021-07-20 23:19] LABS: Bacteria Urine Trace /hpf; RBC Urine 0-2 /hpf (0-2); Squamous Epithelial Cell Urine Rare /hpf (Few); WBC Clumps Urine Present /HPF; WBC Urine 51-75 /hpf
[2021-07-20 23:23] LABS: Add Urine Microscopic? YES
[2021-07-20 23:31] LABS: Amphetamine Screen Urine Negative (Negative); Barbiturate Screen Urine Negative (Negative); Benzodiazepines Screen Urine Negative (Negative); Cannabinoid Screen Urine Positive (Negative); Cocaine Screen Urine Negative (Negative); Methadone Screen Urine Negative (Negative); Opiate Screen Urine Negative (Negative); Phencyclidine Screen Urine Negative (Negative)
[2021-07-20] MEDS: CIPROFLOXACIN 500 MG TAB PO (23:33)
[2021-07-20 23:34] VITALS: BP 120/73; PULSE 89; RESP 18; O2SAT 94
[2021-07-21 02:36] VITALS: BP 123/74; PULSE 81; RESP 18; O2SAT 95
[2021-07-21 05:56] LABS: Ethanol 108 mg/dL (<10)
[2021-07-21 06:00] VITALS: BP 129/75; PULSE 76; RESP 18; O2SAT 97
[2021-07-21 07:24] LABS: Ethanol 82 mg/dL (<10)
[2021-07-21 07:30] VITALS: BP 148/92; PULSE 76; RESP 22; O2SAT 96
[2021-07-21 07:31] VITALS: TEMP 37.2
--- NOTE | 2021-07-21 07:41 | PC.NURSE ---
Spoke with charge nurse regarding columbia scale. PT is calm but having tremors. CHarge stated if pt tries to elope a sitter will be brought in.
[2021-07-21] MEDS: chlordiazePOXIDE (*CRX) 25 MG CAPSULE 50 MG PO ×2 (07:52→19:16)
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
--- NOTE | 2021-07-21 09:17 | PC.NURSE ---
Addendum entered by Susan Martel RN 07/21/21 09:39: Correction Crisis contacted Original Note: [facility] contacted regarding patient SI. Pt to be evaluated.
--- NOTE | 2021-07-21 11:36 | PC.NURSE ---
Faxed Hattie [phone] & Touchette [phone] per crisis request
[2021-07-21 11:46] LABS: SARS-CoV-2 RNA PCR Negative
[2021-07-21] MEDS: chlordiazePOXIDE (*CRX) 25 MG CAPSULE PO (12:50)
--- NOTE | 2021-07-21 16:17 | PC.NURSE ---
Spoke with Tashia from Crisis she will follow up with Anthony an update me on status.
--- NOTE | 2021-07-21 16:35 | PC.NURSE ---
Crisis called and stated [facility] will be calling after nurse to nurse report.
--- NOTE | 2021-07-21 17:37 | PC.NURSE ---
Spoke with Cosmo Cruz. Nurse to nurse report given. Still awaiting approval.
--- NOTE | 2021-07-21 18:10 | PC.NURSE ---
Spoke with Myrna from [facility]. Stated they would be accepting pt after 8pm. Dr Cartagena is the accepting. If arrivial time is after 1130 they need a phone call for ETA. [phone]
[2021-07-21 18:33] VITALS: BP 128/95; PULSE 128; RESP 20; TEMP 37.3; O2SAT 98
--- NOTE | 2021-07-21 20:15 | PC.NURSE ---
called [facility] for ETA update. After Checking with the sales operations analyst [facility] called back and ETA is [phone]
--- NOTE | 2021-07-21 21:25 | PC.NURSE ---
[facility] here.
[2021-07-21 21:31] VITALS: BP 132/76; PULSE 102; RESP 22; TEMP 36.8; O2SAT 100
== END 2021-07-21 21:34 ==
PROVIDERS: Emergency Medicine; Emergency Provider General Practice; PCP Internal Medicine Gastroenterology
DX: R07.89 Other chest pain (principal); F10.129 Alcohol abuse with intoxication, unspecified; F32.A Depression, unspecified; R45.851 Suicidal ideations; Z20.822 Contact with and (suspected) exposure to COVID-19; F43.12 Post-traumatic stress disorder, chronic; Y90.8 Blood alcohol level of 240 mg/100 ml or more; F17.210 Nicotine dependence, cigarettes, uncomplicated; Y37.90XA Military operations, unspecified, initial encounter; R94.31 Abnormal electrocardiogram [ECG] [EKG]; Z79.899 Other long term (current) drug therapy
CPT/HCPCS: 36415; 70450; 71250; 72125; 74176; 80053; 80307; 81001; 83690; 84443; 84484; 85025; 85055; 85610; 85730; 87086; 87088; 93005; 96361; 96374; 99285; A9270; C9803; J3411; J7030; U0003; U0005

== ENCOUNTER 2021-07-26 22:24 | Emergency (ER) | payer MEDICARE, MEDICAID, SELFPAY ==
--- NOTE | ~2021-07-26 | XR_ITS ---
XR chest 1V portable DATE: 07/26/2021 23:07 INDICATION: Central chest pain TECHNIQUE: Portable supine AP view on 07/26/2021 at 2303 hours COMPARISON: 07/20/2021 CTA chest abdomen pelvis 04/08/2021 2 view chest FINDINGS: There is mild patchy infiltrate and/atelectasis in both lower lung zones since 07/20/2021, s uggesting bilateral basilar pneumonia or aspiration pneumonitis. Heart size is within normal limits. Aortic arch calcification. No hilar or mediastinal enlargement is evident. No pleural effusion or pulmonary vascular congestion or pneumothorax. Minimally displaced fracture deformity of undetermined age at the posterolateral left sixth rib. IMPRESSION: Mild patchy bilateral lower lung infiltrate and/atelectasis; consider pneumonia or aspira tion pneumonitis Reviewed, dictated and finalized at location A. IMPRESSION: Mild patchy bilateral lower lung infiltrate and/atelectasis; consid er pneumonia or aspiration pneumonitis
[2021-07-26 22:26] VITALS: BP 138/78; PULSE 92; RESP 17; O2SAT 94
--- NOTE | 2021-07-26 22:57 | ECG_ITS ---
Measurements Intervals [place] Rate: 90 P: 59 [place]: 139 QRS: -13 QRSD: 93 T: 48 QT: 365 QTc: 448 Interpretive Statements SINUS RHYTHM BASELINE ARTIFACT NONSPECIFIC ST ABNORMALITY BORDERLINE ECG COMPARED TO ECG 07/20/2021 16:13:31 RV CONDUCTION DELAY NO LONGER APPRECIATED Electronically Signed On 07-27-2021 9:25:58 CDT by Josue Del Cid M.D.
--- NOTE | 2021-07-26 22:58 | PC.NURSE ---
Bed alarm placed for pt safety
[2021-07-26 23:06] LABS: Basophils Percent Auto 0.3 % (0.2-1.2); Eosinophils Percent Auto 0.7 % (0-4.4); Hematocrit 33.7 % (42.0-52.0); Hemoglobin 11.1 g/dL (14.0-18.0); Immature Granulocyte Absolute 0.05 K/mm3 (0.00-0.031); Immature Granulocyte Percent A 0.8 % (0-0.5); Immature Platelet Fraction Pct 6.7 % (0.9-11.2); Lymphocytes Absolute Auto 2.54 K/mm3 (0.9-3.2); Lymphocytes Percent Auto 43.1 % (18.3-44.2); Mean Corpuscular HGB Conc 32.9 g/dl (32-36); Mean Corpuscular Hemoglobin 30.4 pg (26-34); Mean Corpuscular Volume 92.3 fl (80-100); Mean Platelet Volume 10.3 fl (7.4-10.4); Monocytes Absolute Auto 0.8 K/mm3 (0.1-0.6); Monocytes Percent Auto 13.4 % (2.6-8.5); Neutrophils Absolute Auto 2.5 K/mm3 (1.3-6.7); Neutrophils Percent Auto 41.7 % (45.5-73.1); Platelet Count Result 110 k/mm3 (150-375); Red Blood Count 3.65 M/mm3 (4.6-6.20); Red Cell Distribution Width 13.9 % (11.5-14.5); White Blood Count 5.9 K/mm3 (4.5-10.0)
[2021-07-26 23:13] LABS: Alanine Aminotransferase 55 U/L (6-50); Albumin Level 4.3 g/dL (3.5-5.1); Alkaline Phosphatase 107 U/L (38-126); Anion Gap 6 mmol/L (8-16); Aspartate Amino Transferase 65 U/L (17-59); Bilirubin,Total 0.4 mg/dL (0.2-1.3); Blood Urea Nitrogen 15 mg/dL (9-20); Calcium 8.6 mg/dL (8.4-10.2); Carbon Dioxide 29 mmol/L (22-30); Chloride 109 mmol/L (98-107); Estimated CRCL calculation 74 ml/min; Estimated Glomerular Filt Rate > 60; Glucose 113 mg/dL (65-110); Lipase 132 U/L (23-300); Sodium 144 mmol/L (137-145)
[2021-07-26 23:14] LABS: INR 1.1; Partial Thromboplastin Time 29.5 SECONDS (22.3-36.8); Prothrombin Time 13.9 Seconds (11.1-14.7)
[2021-07-26 23:19] VITALS: TEMP 36.8
[2021-07-26 23:24] LABS: Troponin I 0.014 ng/mL (0.000-0.034)
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
[2021-07-27 00:22] VITALS: BP 99/66; PULSE 85; RESP 14; O2SAT 94
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
--- NOTE | 2021-07-27 01:32 | PC.NURSE ---
JEMIMA Peter reports pt ok to d/c home at present. Paper pants provided. all belongings returned to pt. IV removed.
== END 2021-07-27 01:35 | disposition home or self-care (01) ==
PROVIDERS: Emergency Provider Emergency Medicine; PCP Internal Medicine Gastroenterology
DX: R07.9 Chest pain, unspecified (principal); F10.10 Alcohol abuse, uncomplicated; F43.12 Post-traumatic stress disorder, chronic; Y37.90XA Military operations, unspecified, initial encounter; F32.A Depression, unspecified; F17.210 Nicotine dependence, cigarettes, uncomplicated; R94.31 Abnormal electrocardiogram [ECG] [EKG]
CPT/HCPCS: 36415; 71045; 80053; 83690; 84484; 85025; 85055; 85610; 85730; 93005; 99284

== ENCOUNTER 2021-07-27 15:05 | Emergency (ER) | payer MEDICARE, MEDICAID, SELFPAY ==
[2021-07-27] VITALS (7 sets, daily range): BP systolic 112–118; BP diastolic 70–76; PULSE 90–102; RESP 18; TEMP 36.6; O2SAT 89–99
--- NOTE | ~2021-07-27 | XR_ITS ---
EXAMINATION: XR chest 1V Exam Date/Time: 07/27/2021 15:36 CDT HISTORY: right chest wall pain, patient is intoxicated hx smoker Comparison: 07/26/2021. RESULT: Lines, tubes, and devices: None. Lungs and pleura: Clear. Cardiomediastinal silhouette: Stable cardiomediastinal silhouette. Other: No acute osseous or upper abdominal finding. IMPRESSION: Resolved pulmonary opacities, which likely represented atelectasis. Reviewed, dictated and finalized at location K.
--- NOTE | ~2021-07-27 | CT_ITS ---
EXAMINATION: CT brain wo con DATE: 07/27/2021 15:41 INDICATION: head injury . TECHNIQUE: Computed tomography (CT) of the head was performed without intravenous contrast. The mA wa s adjusted according to patient size. Iterative reconstruction technique was employed. The dose-lengt h product was 605.33 mGy-cm. COMPARISON: 07/20/2021 and 04/15/2021. FINDINGS: No acute intracranial hemorrhage or extra-axial fluid collection. No hydrocephalus, mass, or herniation. No acute ischemic infarct. Unremarkable dural venous sinus attenuation. No acute osseous abnormality. The aerated spaces are clear. Mild atrophy and chronic white matter change. 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 Stable left occipita l giant arachnoid granulation or venous agudelo. IMPRESSION: No acute intracranial process. Reviewed, dictated and finalized at location K.
--- NOTE | ~2021-07-27 | CT_ITS ---
EXAMINATION: CT facial & cervical spine wo DATE: 07/27/2021 15:41 INDICATION: fall, intoxicated, facial injury TECHNIQUE: Computed tomography (CT) of the cervical spine was performed without intravenous contrast. Automated exposure control and iterative reconstruction technique were employed. The dose-length pro duct was 415.14 mGy-cm. COMPARISON: 07/20/2021. FINDINGS: Vertebral Body Alignment: Intact. Craniocervical and atlantoaxial alignment: Moderate degenerative change. Alignment intact. Osseous structures/fracture: No evidence of a lytic or blastic process in the visualized spine. No e vidence of acute fracture. Cervical soft tissues: The paraspinal soft tissues planes are maintained. Degenerative changes: Degenerative changes, without severe neural foraminal or central canal narrowin g. IMPRESSION: No acute fracture or traumatic malalignment in the cervical spine. Reviewed, dictated and finalized at location K.
--- NOTE | 2021-07-27 15:11 | PC.NURSE ---
Patient placed on bed alarm.
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
--- NOTE | 2021-07-27 15:29 | ECG_ITS ---
Measurements Intervals [place] Rate: 91 P: 43 [place]: 119 QRS: 12 QRSD: 101 T: 45 QT: 381 QTc: 469 Interpretive Statements SINUS RHYTHM NORMAL ECG COMPARED TO ECG 07/26/2021 22:33:03 NO SIGNIFICANT CHANGES Electronically Signed On 07-28-2021 13:01:53 CDT by Conor Peres M.D.
[2021-07-27 15:54] LABS: Basophils Percent Auto 0.4 % (0.2-1.2); Eosinophils Percent Auto 0.6 % (0-4.4); Hematocrit 34.1 % (42.0-52.0); Hemoglobin 11.2 g/dL (14.0-18.0); Immature Granulocyte Absolute 0.03 K/mm3 (0.00-0.031); Immature Granulocyte Percent A 0.6 % (0-0.5); Lymphocytes Absolute Auto 1.98 K/mm3 (0.9-3.2); Lymphocytes Percent Auto 40.3 % (18.3-44.2); Mean Corpuscular HGB Conc 32.8 g/dl (32-36); Mean Corpuscular Hemoglobin 30.4 pg (26-34); Mean Corpuscular Volume 92.4 fl (80-100); Mean Platelet Volume 9.9 fl (7.4-10.4); Monocytes Absolute Auto 0.6 K/mm3 (0.1-0.6); Monocytes Percent Auto 12.4 % (2.6-8.5); Neutrophils Absolute Auto 2.2 K/mm3 (1.3-6.7); Neutrophils Percent Auto 45.7 % (45.5-73.1); Platelet Count Result 113 k/mm3 (150-375); Red Blood Count 3.69 M/mm3 (4.6-6.20); Red Cell Distribution Width 14.1 % (11.5-14.5); White Blood Count 4.9 K/mm3 (4.5-10.0)
[2021-07-27 16:04] LABS: Alanine Aminotransferase 48 U/L (6-50); Albumin Level 4.1 g/dL (3.5-5.1); Alkaline Phosphatase 114 U/L (38-126); Anion Gap 8 mmol/L (8-16); Aspartate Amino Transferase 63 U/L (17-59); Bilirubin,Total 0.4 mg/dL (0.2-1.3); Blood Urea Nitrogen 14 mg/dL (9-20); Carbon Dioxide 27 mmol/L (22-30); Chloride 111 mmol/L (98-107); Estimated Glomerular Filt Rate > 60; Glucose 105 mg/dL (65-110); Potassium 3.9 mmol/L (3.4-5.0); Sodium 146 mmol/L (137-145)
[2021-07-27] MEDS: ALBUTEROL SULFATE NEB 2.5 MG/3 ML INH 5 MG INHALATION (16:08)
[2021-07-27 16:14] LABS: Troponin I < 0.012 ng/mL (0.000-0.034)
--- NOTE | 2021-07-27 16:59 | PC.NURSE ---
dinner tray ordered for patient
--- NOTE | 2021-07-27 17:20 | PC.NURSE ---
Patient given meal
== END 2021-07-27 18:09 | disposition home or self-care (01) ==
PROVIDERS: Emergency Provider Emergency Medicine; PCP Internal Medicine Gastroenterology
DX: S09.93XA Unspecified injury of face, initial encounter (principal); F10.229 Alcohol dependence with intoxication, unspecified; R07.89 Other chest pain; F43.12 Post-traumatic stress disorder, chronic; Y37.90XA Military operations, unspecified, initial encounter; F32.A Depression, unspecified; F17.210 Nicotine dependence, cigarettes, uncomplicated; Y90.9 Presence of alcohol in blood, level not specified
CPT/HCPCS: 36415; 70450; 70486; 71045; 72125; 80053; 84484; 85025; 93005; 94640; 99284

== ENCOUNTER 2021-07-27 20:08 | Emergency (ER) | payer MEDICARE, MEDICAID, SELFPAY ==
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
[2021-07-27] MEDS: HALOPERIDOL LACTATE 5 MG/ML VIAL 10 MG IM (20:24)
[2021-07-27] MEDS: LORazepam INJ (*CRX) 2 MG/ML VIAL IM (20:24)
[2021-07-27 20:37] VITALS: BP 102/58; PULSE 95; TEMP 37.3; O2SAT 95
[2021-07-27 20:43] LABS: Basophils Percent Auto 0.2 % (0.2-1.2); Eosinophils Absolute Auto 0.1 K/mm3 (0-0.3); Eosinophils Percent Auto 0.6 % (0-4.4); Hematocrit 35.2 % (42.0-52.0); Hemoglobin 11.6 g/dL (14.0-18.0); Immature Granulocyte Absolute 0.05 K/mm3 (0.00-0.031); Immature Granulocyte Percent A 0.6 % (0-0.5); Lymphocytes Absolute Auto 3.82 K/mm3 (0.9-3.2); Lymphocytes Percent Auto 47.2 % (18.3-44.2); Mean Corpuscular Hemoglobin 30.3 pg (26-34); Mean Corpuscular Volume 91.9 fl (80-100); Mean Platelet Volume 9.9 fl (7.4-10.4); Monocytes Absolute Auto 1.2 K/mm3 (0.1-0.6); Monocytes Percent Auto 14.3 % (2.6-8.5); Neutrophils Percent Auto 37.1 % (45.5-73.1); Platelet Count Result 127 k/mm3 (150-375); Red Blood Count 3.83 M/mm3 (4.6-6.20); Red Cell Distribution Width 14.3 % (11.5-14.5); White Blood Count 8.1 K/mm3 (4.5-10.0)
[2021-07-27 20:53] LABS: Alanine Aminotransferase 52 U/L (6-50); Albumin Level 4.5 g/dL (3.5-5.1); Alkaline Phosphatase 118 U/L (38-126); Anion Gap 10 mmol/L (8-16); Aspartate Amino Transferase 71 U/L (17-59); Bilirubin,Total 0.4 mg/dL (0.2-1.3); Blood Urea Nitrogen 14 mg/dL (9-20); Calcium 8.2 mg/dL (8.4-10.2); Carbon Dioxide 28 mmol/L (22-30); Chloride 108 mmol/L (98-107); Estimated CRCL calculation 67 ml/min; Estimated Glomerular Filt Rate > 60; Glucose 118 mg/dL (65-110); Potassium 3.8 mmol/L (3.4-5.0); Sodium 146 mmol/L (137-145)
[2021-07-27 21:02] LABS: Ethanol 405 mg/dL (<10)
[2021-07-27 21:10] VITALS: RESP 16
[2021-07-27] MEDS: SODIUM CHLORIDE 0.9% IV 1,000 ML 250 ML IV CONT (21:11)
[2021-07-27 21:17] LABS: SARS-CoV-2 RNA PCR Negative
--- NOTE | 2021-07-27 22:56 | PC.NURSE ---
pt in room, eyes closed, equal chest rise and fall noted. fluids infusing
--- NOTE | 2021-07-27 23:07 | PC.NURSE ---
Report received from MARY Farmer. This nurse assumed care of patient at this time.
--- NOTE | 2021-07-27 23:20 | PC.NURSE ---
Patient resting on stretcher with eyes closed after medication administration. Unable to assess patient for SI/HI at this time. Patient has IV fluids going. No acute distress noted, will continue to monitor.
--- NOTE | 2021-07-28 06:48 | PC.NURSE ---
ERP Dr. Peter at bedside to reassess patient. pt apologetic for saying things he did not mean while intoxicated. ERP plans to d/c pt home.
--- NOTE | 2021-07-28 07:01 | PC.NURSE ---
Ordered breakfast tray for patient.
[2021-07-28 08:22] VITALS: BP 134/98; PULSE 88; RESP 18; O2SAT 100
== END 2021-07-28 08:15 | disposition home or self-care (01) ==
PROVIDERS: Emergency Provider Emergency Medicine; PCP Internal Medicine Gastroenterology
DX: F10.229 Alcohol dependence with intoxication, unspecified (principal); Y90.8 Blood alcohol level of 240 mg/100 ml or more; Z20.822 Contact with and (suspected) exposure to COVID-19; F43.12 Post-traumatic stress disorder, chronic; F32.A Depression, unspecified; Y37.90XA Military operations, unspecified, initial encounter; F17.210 Nicotine dependence, cigarettes, uncomplicated; Z79.899 Other long term (current) drug therapy
CPT/HCPCS: 36415; 70450; 70486; 71045; 72125; 80053; 80307; 84484; 85025; 93005; 94640; 96360; 96361; 96372; 96375; 99284; C9803; J1630; J2060; J7030; U0003; U0005

== ENCOUNTER 2021-07-29 12:48 | Emergency (ER) | payer MEDICARE, MEDICAID, SELFPAY ==
--- NOTE | ~2021-07-29 | XR_ITS ---
EXAMINATION: XR hip BI 2V w AP pelvis DATE: 07/30/2021 04:24 INDICATION: Hip pain. TECHNIQUE: An anteroposterior view of the pelvis and 2 views of each hip were obtained. COMPARISON: Pelvis radiograph 04/15/2021 FINDINGS: Bone alignment is normal. No acute fracture. There is plate and screw fixation of left acet abulum. There is mild osteoarthritis of the hips. There is severe lumbar spondylosis. IMPRESSION: 1. Mild osteoarthritis of the hips. Reviewed, dictated and finalized at location A.
[2021-07-29 12:51] VITALS: BP 139/84; PULSE 95; RESP 18; TEMP 36.9; O2SAT 97
[2021-07-29 13:37] LABS: Basophils Percent Auto 0.5 % (0.2-1.2); Eosinophils Percent Auto 0.7 % (0-4.4); Hematocrit 33.6 % (42.0-52.0); Hemoglobin 11.1 g/dL (14.0-18.0); Immature Granulocyte Absolute 0.02 K/mm3 (0.00-0.031); Immature Granulocyte Percent A 0.5 % (0-0.5); Lymphocytes Absolute Auto 1.54 K/mm3 (0.9-3.2); Lymphocytes Percent Auto 36.8 % (18.3-44.2); Mean Corpuscular Hemoglobin 30.4 pg (26-34); Mean Corpuscular Volume 92.1 fl (80-100); Mean Platelet Volume 9.7 fl (7.4-10.4); Monocytes Absolute Auto 0.6 K/mm3 (0.1-0.6); Monocytes Percent Auto 15.3 % (2.6-8.5); Neutrophils Absolute Auto 1.9 K/mm3 (1.3-6.7); Neutrophils Percent Auto 46.2 % (45.5-73.1); Platelet Count Result 114 k/mm3 (150-375); Red Blood Count 3.65 M/mm3 (4.6-6.20); Red Cell Distribution Width 14.1 % (11.5-14.5); White Blood Count 4.2 K/mm3 (4.5-10.0)
[2021-07-29 13:47] LABS: Alanine Aminotransferase 57 U/L (6-50); Alkaline Phosphatase 122 U/L (38-126); Anion Gap 9 mmol/L (8-16); Aspartate Amino Transferase 163 U/L (17-59); Bilirubin,Total 0.3 mg/dL (0.2-1.3); Blood Urea Nitrogen 11 mg/dL (9-20); Calcium 8.1 mg/dL (8.4-10.2); Carbon Dioxide 25 mmol/L (22-30); Chloride 106 mmol/L (98-107); Estimated CRCL calculation 95 ml/min; Estimated Glomerular Filt Rate > 60; Glucose 96 mg/dL (65-110); Potassium 3.9 mmol/L (3.4-5.0); Sodium 140 mmol/L (137-145)
[2021-07-29 14:31] LABS: Appearance Urine Clear (Clear); Bilirubin Urine 1+ (Negative); Blood Urine Negative (Negative); Color Urine Yellow (Yellow); Glucose Urine UA Negative (Negative); Ketones Urine Negative (Negative); Leukocyte Esterase Ur Negative LEU/UL (Negative); Nitrate Urine Negative (Negative); Protein Urine Negative (Negative); Specific Grav Ur >= 1.030 (1.001-1.035); Urobilinogen Urine 0.2 mg/dL (<2.0); pH Urine 5.5 (5.0-9.0)
[2021-07-29 14:36] LABS: Bacteria Urine Trace /hpf; Mucus Urine Rare /lpf; RBC Urine 0-2 /hpf (0-2)
[2021-07-29 14:37] LABS: Add Urine Microscopic? YES
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
[2021-07-29 19:30] LABS: Amphetamine Screen Urine Negative (Negative); Barbiturate Screen Urine Negative (Negative); Benzodiazepines Screen Urine Positive (Negative); Cannabinoid Screen Urine Positive (Negative); Cocaine Screen Urine Negative (Negative); Methadone Screen Urine Negative (Negative); Opiate Screen Urine Negative (Negative); Phencyclidine Screen Urine Negative (Negative)
[2021-07-29 19:43] LABS: Ethanol 20 mg/dL (<10)
--- NOTE | 2021-07-29 19:53 | PC.NURSE ---
1900: Received bedside report from Alli HERNANDEZ and assumed care at this time.
[2021-07-29 21:06] LABS: Thyroid Stimulating Hormone 0.232 uIU/mL (0.465-4.680)
--- NOTE | 2021-07-29 22:25 | PC.NURSE ---
Pt chart faxed to [facility].
[2021-07-29 22:29] LABS: SARS-CoV-2 RNA PCR Negative
[2021-07-30 09:19] VITALS: BP 131/80; PULSE 78; TEMP 36.6; O2SAT 97
--- NOTE | 2021-08-05 13:36 | PCCCNOTE ---
VM received today from Dr. Opal Duffy at the [facility], return call to [id number] Duffy is able to confirm patient's and address noted in our record. States multiple calls received through community care/suicide prevention trying to get some information to best assist the patient. Advised to Dr. Duffy the number of ED visits and diagnoses along with disposition of [facility] on 07/30/21.
== END 2021-07-30 10:00 ==
PROVIDERS: Family Medicine; Emergency Provider Emergency Medicine; PCP Internal Medicine Gastroenterology
DX: R45.6 Violent behavior (principal); Z20.822 Contact with and (suspected) exposure to COVID-19; F43.12 Post-traumatic stress disorder, chronic; F32.A Depression, unspecified; F17.210 Nicotine dependence, cigarettes, uncomplicated; Z79.899 Other long term (current) drug therapy; Y37.90XA Military operations, unspecified, initial encounter
CPT/HCPCS: 36415; 73521; 80053; 80307; 81001; 84443; 85025; 99285; C9803; U0003; U0005

== ENCOUNTER 2022-12-23 16:21 | Emergency (ER) | payer MEDICARE, MEDICAID, SELFPAY ==
--- NOTE | ~2022-12-23 | CT_ITS ---
EXAMINATION: CT brain wo con DATE: 12/23/2022 17:16 INDICATION: head injuy . TECHNIQUE: Computed tomography (CT) of the head was performed without intravenous contrast. The mA wa s adjusted according to patient size. Iterative reconstruction technique was employed. The dose-lengt h product was 605.33 mGy-cm. COMPARISON: 07/27/2021. FINDINGS: No acute intracranial hemorrhage or extra-axial fluid collection. No hydrocephalus, mass, or herniation. No acute ischemic infarct. Unremarkable dural venous sinus attenuation. No acute osseous abnormality in the skull. Chronic appearing rightward displacement of the nasal bone s. The aerated spaces are clear. Mild atrophy and chronic white matter change. Atherosclerotic intracranial calcification. Left inferi or frontal encephalomalacia. Stable left occipital joint arachnoid granulation versus venous agudelo. Th is IMPRESSION: No acute intracranial process. Reviewed, dictated and finalized at location K. CLEANER
--- NOTE | ~2022-12-23 | CT_ITS ---
EXAMINATION: CT cervical spine wo con DATE: 12/23/2022 17:19 INDICATION: head neck injury TECHNIQUE: Computed tomography (CT) of the cervical spine was performed without intravenous contrast. Automated exposure control and iterative reconstruction technique were employed. The dose-length pro duct was 418.12 mGy-cm. COMPARISON: 07/20/2021. FINDINGS: Vertebral Body Alignment: Intact. Craniocervical and atlantoaxial alignment: Moderate degenerative change. Alignment intact. Osseous structures/fracture: No evidence of a lytic or blastic process in the visualized spine. No e vidence of acute fracture. Cervical soft tissues: The paraspinal soft tissues planes are maintained. Stable left upper lobe gran uloma. Degenerative changes: Multilevel severe degenerative disc disease including large bridging osteophyte s. Multilevel mild and moderate facet arthropathy. No severe central canal or neural foraminal narrow ing. IMPRESSION: No acute fracture or traumatic malalignment in the cervical spine. Reviewed, dictated and finalized at location K. URCE CONSERVATIONIST
[2022-12-23 16:45] VITALS: BP 98/52; PULSE 100; RESP 17; TEMP 36.2; O2SAT 99
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
[2022-12-23] MEDS: SODIUM CHLORIDE 0.9% IV 1,000 ML 999 ML IV CONT ×2 (17:45→18:24)
[2022-12-23 17:49] LABS: Basophils Percent Auto 0.3 % (0.2-1.2); Eosinophils Absolute Auto 0.1 K/mm3 (0-0.3); Eosinophils Percent Auto 2.9 % (0-4.4); Hematocrit 34.6 % (42.0-52.0); Hemoglobin 11.1 g/dL (14.0-18.0); Immature Granulocyte Absolute 0.01 K/mm3 (0.00-0.031); Immature Granulocyte Percent A 0.3 % (0-0.5); Lymphocytes Percent Auto 42.9 % (18.3-44.2); Mean Corpuscular HGB Conc 32.1 g/dl (32-36); Mean Corpuscular Hemoglobin 31.5 pg (26-34); Mean Corpuscular Volume 98.3 fl (80-100); Mean Platelet Volume 10.8 fl (7.4-10.4); Monocytes Absolute Auto 0.5 K/mm3 (0.1-0.6); Monocytes Percent Auto 12.1 % (2.6-8.5); Neutrophils Absolute Auto 1.6 K/mm3 (1.3-6.7); Neutrophils Percent Auto 41.5 % (45.5-73.1); Platelet Count Result 108 k/mm3 (150-375); Red Blood Count 3.52 M/mm3 (4.6-6.20); Red Cell Distribution Width 14.9 % (11.5-14.5); White Blood Count 3.7 K/mm3 (4.5-10.0)
[2022-12-23 17:59] LABS: Alanine Aminotransferase 82 U/L (6-50); Albumin Level 3.8 g/dL (3.5-5.1); Alkaline Phosphatase 173 U/L (38-126); Anion Gap 11 mmol/L (8-16); Aspartate Amino Transferase 180 U/L (17-59); Bilirubin,Total 0.8 mg/dL (0.2-1.3); Blood Urea Nitrogen 12 mg/dL (9-20); Calcium 8.2 mg/dL (8.4-10.2); Carbon Dioxide 26 mmol/L (22-30); Chloride 106 mmol/L (98-107); Estimated CRCL calculation 61 ml/min; Estimated Glomerular Filt Rate > 60; Glucose 105 mg/dL (65-110); Lactic Acid Reflex 2.2 mmol/L (0.7-2.0); Potassium 3.8 mmol/L (3.4-5.0); Sodium 143 mmol/L (137-145)
[2022-12-23 18:53] LABS: Amphetamine Screen Urine Negative (Negative); Barbiturate Screen Urine Negative (Negative); Benzodiazepines Screen Urine Negative (Negative); Cannabinoid Screen Urine Positive (Negative); Cocaine Screen Urine Negative (Negative); Methadone Screen Urine Negative (Negative); Opiate Screen Urine Negative (Negative); Phencyclidine Screen Urine Negative (Negative)
[2022-12-23 18:54] LABS: Appearance Urine Clear (Clear); Bacteria Urine None Seen /hpf; Bilirubin Urine Negative (Negative); Blood Urine 2+ (Negative); Color Urine Yellow (Yellow); Glucose Urine UA Negative (Negative); Ketones Urine Negative (Negative); Leukocyte Esterase Ur Negative LEU/UL (Negative); Need Manual Microscopic Reviewed; Nitrate Urine Negative (Negative); Non Pathogenic Casts 0-2; Protein Urine Negative (Negative); RBC Urine 21-50 /hpf (0-2); Specific Grav Ur 1.006 (1.001-1.035); Squamous Epithelial Cell Urine None seen /hpf (Few); WBC Urine 0-5 /hpf
[2022-12-23 18:57] LABS: Add Urine Microscopic? YES
[2022-12-23 19:16] VITALS: BP 92/58; PULSE 86; RESP 18; O2SAT 98
[2022-12-23 19:58] VITALS: BP 119/58; PULSE 95; RESP 22; O2SAT 99
[2022-12-23 20:47] LABS: Reflex Lactic Acid Yes or No Add Lactic
[2022-12-26 17:12] LABS: Methyl Alcohol Level None Detected (None Detected)
== END 2022-12-23 20:01 | disposition home or self-care (01) ==
PROVIDERS: Emergency Provider Emergency Medicine; PCP Internal Medicine Gastroenterology
DX: F10.20 Alcohol dependence, uncomplicated (principal); S09.90XA Unspecified injury of head, initial encounter; R74.01 Elevation of levels of liver transaminase levels; D61.818 Other pancytopenia; F17.210 Nicotine dependence, cigarettes, uncomplicated; F43.10 Post-traumatic stress disorder, unspecified; F32.A Depression, unspecified; W19.XXXA Unspecified fall, initial encounter
CPT/HCPCS: 36415; 70450; 72125; 80053; 80307; 81001; 83605; 84600; 85025; 96360; 99284; J7030

== ENCOUNTER 2023-03-16 23:17 | Emergency (ER) | payer MEDICARE, SELFPAY ==
--- NOTE | ~2023-03-16 | CT_ITS ---
Noncontrast CT scan of the cervical spine Technique: Multiple contiguous axial [address] images of the cervical spine were obtained and rec onstructed in 2D sagittal and coronal planes on the acquisition scanner. Dose reduction technique was used on this scan by utilizing automated exposure control, adjustment of the mA and/or kV according to patient size. The dose-length product (DLP) was 351.90 mGy-cm. Clinical History: Pain Findings: No fractures or dislocations. There is moderate degenerative disc narrowing at C3-C4 and C 6-C7. There are extensive anterior osteophytes throughout the cervical spine, with this prominent efren dging across the C4-T1 levels. Possible mild left neural foraminal narrowing at C3-C4. There are mild facet degenerative changes in the cervical spine. No prevertebral soft tissue swelling. 5 mm nodule noted the posterior left lung apex. Impression: No fracture or subluxation of the cervical spine. Degenerative spondylosis, as above. 5 mm left apical pulmonary nodule, stable since 12/23/2022. Reviewed, dictated and finalized at [facility]. NHOUSE INSTRUCTOR Impression: No fracture or subluxation of the cervical spine. Degenerative spondylosis, as above. 5 mm left apical pulmonary nodule, stable since 12/23/2022.
--- NOTE | ~2023-03-16 | CT_ITS ---
CT head without contrast Indication: Head injury COMPARISON: 12/24/2019 Technique: Serial scans were obtained through the brain without the administration of contrast. Dose reduction technique was used on this scan by utilizing automated exposure control and iterative recon struction technique. The dose-length product (DLP) was 605.33 mGy-cm. Findings: There is no evidence of intracranial hemorrhage, mass lesion, or acute infarct. Chronic lef t frontal lobe infarct is unchanged. The ventricles and subarachnoid spaces are dilated, consistent w ith mild to moderate atrophy. Low attenuation regions are seen within the periventricular white rey er bilaterally, likely representing changes from chronic microvascular ischemic disease. There is no evidence of edema, mass effect or midline shift. The visualized paranasal sinuses and mastoid air c ells are clear. Impression: No intracranial hemorrhage, mass, or acute infarct. Chronic left frontal lobe infarct. Atrophy and chronic white matter changes, as above. Reviewed, dictated and finalized at [facility]. PING DIE MAKER BENCH Impression: No intracranial hemorrhage, mass, or acute infarct. Chronic left frontal lobe infarct. Atrophy and chronic white matter changes, as above.
[2023-03-16 23:18] VITALS: BP 98/60; PULSE 73; RESP 15; TEMP 37.1; O2SAT 95
[2023-03-16 23:51] VITALS: BP 121/86; PULSE 74; RESP 13; O2SAT 96
[2023-03-16 23:52] VITALS: BP 121/86; PULSE 69; RESP 13; TEMP 36.4; O2SAT 97
[2023-03-16 23:53] VITALS: O2SAT 97
[2023-03-17] VITALS (17 sets, daily range): BP systolic 102–114; BP diastolic 69–79; PULSE 68–91; RESP 12–20; TEMP 36.6; O2SAT 92–99
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
[2023-03-17] MEDS: TETANUS,DIPHTHERIA,AC PERTUSSIS ADULT (0.5 ML) BOOSTRIX IM (00:26)
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
--- NOTE | 2023-03-17 03:21 | PC.NURSE ---
Patient was asked if he knew anyone that was sober that could come pick him. Patient stated I'll leave on my own . Patient was notified that he needed someone to sober to pick him up since he was drinking tonight and had an unsteady gait. Patient states I don't give a fuck. You will not keep me here. I don't care how big you are . ED security and EDP Dr. Chau notified.
--- NOTE | 2023-03-17 03:25 | PC.NURSE ---
Attempted to call patient's secondary contact twice, no answer each time. Patient's other contacts phone numbers not connected.
--- NOTE | 2023-03-17 04:05 | PC.NURSE ---
Per EDP Dr. Chau patient is okay to leave in a cab to go home.
== END 2023-03-17 04:05 | disposition home or self-care (01) ==
PROVIDERS: Emergency Provider Emergency Medicine; PCP Internal Medicine Gastroenterology
DX: F10.10 Alcohol abuse, uncomplicated (principal); S00.01XA Abrasion of scalp, initial encounter; F17.210 Nicotine dependence, cigarettes, uncomplicated; F32.A Depression, unspecified; W01.0XXA Fall on same level from slipping, tripping and stumbling without subsequent striking against object, initial encounter; Z23 Encounter for immunization
CPT/HCPCS: 70450; 72125; 90471; 90715; 99284

== ENCOUNTER 2023-08-31 00:37 | Emergency (ER) | payer MEDICARE, SELFPAY ==
--- NOTE | ~2023-08-31 | CT_ITS ---
EXAMINATION: CT cervical spine wo con DATE: 08/31/2023 02:12 INDICATION: Neck pain after fall TECHNIQUE: Computed tomography (CT) of the cervical spine was performed without intravenous contrast. The dose-length product was 348 mGy-cm. Automated exposure control and iterative reconstruction tech [employer] were employed. COMPARISON: CT dated 03/17/2023 FINDINGS: 5 mm left apical nodule. There is degenerative disc disease at all cervical spine levels, m ost advanced at C3-4, C5-6 and C6-7. There are prominent bridging osteophytes at multiple levels with an old fractured osteophyte at C4-5. There is straightening of cervical lordosis. No acute fracture or traumatic malalignment. Craniovertebral junction is normal. Odontoid process is normal. No evidenc e for perched facet. There is advanced multilevel uncinate and to a lesser degree facet degenerative change. IMPRESSION: 1. No acute abnormality of the cervical spine. 2: Severe cervical spondylosis. Reviewed, dictated and finalized at location B.
--- NOTE | ~2023-08-31 | CT_ITS ---
EXAMINATION: CT brain wo con DATE: 08/31/2023 02:12 INDICATION: Status post fall. TECHNIQUE: Computed tomography (CT) of the head was performed without intravenous contrast. The dose- length product was 1059.33 mGy-cm. Automated exposure control and iterative reconstruction technique were employed. COMPARISON: CT dated 03/17/2023 FINDINGS: Chronic bilateral frontal lobe infarctions with encephalomalacia. No ventriculomegaly or mi dline shift. Basilar cisterns are patent. Generalized atrophy. There are scattered mild periventricul ar and subcortical white matter changes, most likely related to small vessel ischemic disease (microa ngiopathy). No ventriculomegaly or midline shift. Basilar cisterns are patent. Mild mucosal thickenin g of the left maxillary and frontal sinuses. Mastoids are pneumatized. No depressed skull fractures. No acute intracranial hemorrhage, infarction, mass or mass effect. IMPRESSION: 1. No acute intracranial abnormality. Reviewed, dictated and finalized at location B.
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
[2023-08-31 00:36] VITALS: BP 117/82; PULSE 99; RESP 17; TEMP 36.8; O2SAT 99
[2023-08-31 00:42] VITALS: BP 117/82; PULSE 93; RESP 23; O2SAT 100
[2023-08-31 01:01] VITALS: BP 101/70; PULSE 101; RESP 15; O2SAT 99
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
[2023-08-31 03:02] VITALS: BP 112/56; PULSE 98; RESP 21; O2SAT 96
== END 2023-08-31 03:40 | disposition home or self-care (01) ==
PROVIDERS: Emergency Provider Emergency Medicine; PCP Internal Medicine Gastroenterology
DX: F10.10 Alcohol abuse, uncomplicated (principal); Y90.9 Presence of alcohol in blood, level not specified; F17.210 Nicotine dependence, cigarettes, uncomplicated
CPT/HCPCS: 70450; 72125; 72170; 99284

== ENCOUNTER 2023-11-17 12:26 | Emergency (ER) | payer MEDICARE, OTHER, SELFPAY ==
--- NOTE | ~2023-11-17 | CT_ITS ---
CT head without contrast Indication: Head injury COMPARISON: 08/31/2023 Technique: Serial scans were obtained through the brain without the administration of contrast. Dose reduction technique was used on this scan by utilizing automated exposure control and iterative recon struction technique. The dose-length product (DLP) was 983.67 mGy-cm. Findings: There is no evidence of intracranial hemorrhage, mass lesion, or acute infarct. Chronic lef t frontal lobe infarct/encephalomalacia present. The ventricles and subarachnoid spaces are dilated, consistent with moderate atrophy. Low attenuation regions are seen within the periventricular white matter bilaterally, likely representing changes from chronic microvascular ischemic disease. There is no evidence of edema, mass effect or midline shift. The visualized paranasal sinuses and mastoid a ir cells are clear. There is scalp hematoma/swelling along the high right parietal scalp. Impression: No intracranial hemorrhage, mass, or acute infarct. Chronic left frontal lobe infarct/encephalomalacia. Scalp hematoma/soft tissue swelling at the high right parietal scalp. Atrophy and chronic white matter changes, as above. Reviewed, dictated and finalized at location . Impression: No intracranial hemorrhage, mass, or acute infarct. Chronic left frontal lobe infarct/encephalomalacia. Scalp hematoma/soft tissue swelling at the high right parietal scalp. Atrophy and chronic white matter changes, as above.
[2023-11-17 12:31] VITALS: BP 114/68; PULSE 90; RESP 16; TEMP 36.8; O2SAT 94
[2023-11-17 13:00] VITALS: BP 116/76; PULSE 88; RESP 16; TEMP 36.6; O2SAT 94
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
[2023-11-17 14:00] VITALS: BP 114/70; PULSE 78; RESP 16; TEMP 36.6; O2SAT 98
--- NOTE | 2023-11-17 14:16 | PC.NURSE ---
standard lunch tray ordered
[2023-11-17 14:50] VITALS: BP 112/68; PULSE 76; RESP 16; TEMP 36.6; O2SAT 95
--- NOTE | 2023-11-17 14:51 | PC.NURSE ---
ambulated in bird without difficulty, ate lunch. Currently sitting up watching TV
--- NOTE | 2023-11-17 15:03 | PCCCNOTE ---
1504-Provider a taxi voucher for safe discharge to home.-taye.
== END 2023-11-17 15:09 | disposition home or self-care (01) ==
PROVIDERS: Emergency Provider Emergency Medicine; PCP Internal Medicine Gastroenterology
DX: S00.03XA Contusion of scalp, initial encounter (principal); F17.210 Nicotine dependence, cigarettes, uncomplicated; F43.12 Post-traumatic stress disorder, chronic; F32.A Depression, unspecified; Z79.899 Other long term (current) drug therapy; W01.0XXA Fall on same level from slipping, tripping and stumbling without subsequent striking against object, initial encounter
CPT/HCPCS: 70450; 99284

== ENCOUNTER 2024-06-05 07:19 | Emergency (ER) | payer MEDICARE, OTHER, SELFPAY ==
[2024-06-05] VITALS (26 sets, daily range): BP systolic 116–134; BP diastolic 71–93; PULSE 67–87; RESP 12–20; TEMP 36.6; O2SAT 91–98
--- NOTE | ~2024-06-05 | XR_ITS ---
XR hip LT 2V w AP pelvis Ordering provider: Reji Solomon MD History: . PAIN AFTER FALL . Comparison: None. FINDINGS: BONES: No acute fracture or dislocation. Postoperative changes in the left acetabulum. HIP JOINT SPACES: Bilateral narrowing of the joint space is suggestive of moderate osteoarthritic дмитрий nges. SACROILIAC JOINT SPACES/LUMBAR SPINE: The sacroiliac joint spaces are normal. Mild degenerative prado es of the visualized lower lumbar spine. PUBIC SYMPHYSIS: Normal. SOFT TISSUES: Normal. IMPRESSION: No acute osseous abnormality pelvis and left hip. Postoperative changes in the left acetabulum. Reviewed, dictated and finalized at location A.
--- OUTSIDE RECORDS SUMMARY | 2024-06-05 07:43 | XMS_ITS | CONTINUITY OF CARE DOCUMENT ---
Author Name sylvia ward Address Unknown Organization [facility] Address [address] [address] [place] [address] Phone [phone] Care Team Providers Care Sound Engineering Technician Name Role Phone Bladimir ALBERT, Mukund Unavailable [phone] Mukund Garrison MD Unavailable [phone] INSURANCE PROVIDERS Payer name Policy type / Coverage type [place] [employer] party ID [place] [employer] Medicare [id number] HEALTHCARE AND FAMILY SERVICES Medicaid 1 [id number]
--- OUTSIDE RECORDS SUMMARY | 2024-06-05 07:43 | XMS_ITS ---
Author Organization [facility] Care Team Providers Care Information Technology Internship Name Role Phone Kyleigh Mack Unavailable Unavailable Allergies and adverse reactions No Known Allergies Care Team Name Role Address Phone Organization Dates Giron Arizmendi PCP [address] [place] [address], [id number], [place] (Office): : [facility] 02/25/2023 - 02/28/2023 Mental Status Section Date Assessment Total Score Description 02/28/2023 BIMS 00 severe cognitiv e impairment CAM 0 No delirium ind icated PHQ-9 00 02/28/2023 CAM 0 No delirium ind icated Problems Problem # Description Date of onset Resolved Date Code CodeSystem Concern Status 1 ALCOHOL USE, UNSPECIFIED, UNCOMPLICATED [id number] active 2 FRACTURE OF NASAL BONES, SUBSEQUENT ENCOUNTER FOR FRACTURE WITH ROUTINE HEALING [address] active 3 LACERATION WITHOUT FOREIGN BODY OF SCALP, SEQUELA [address] active 4 SCHIZOPHRENIA, UNSPECIFIED [address] active 5 UNSPECIFIED FRACTURE OF FACIAL BONES, INITIAL ENCOUNTER FOR CLOSED FRACTURE [address] active 6 WEDGE COMPRESSION FRACTURE OF T7-T8 VERTEBRA, SUBSEQUENT ENCOUNTER FOR FRACTURE WITH NONUNION [address] active Reason for Referral No Reasons for Referral Entered Social History Social History Observation Description Start Date End Date Code Code System Current Smoking Status Tobacco smoking consumption unknown 845058531 SNOMED CT Sex Assigned At Male 1950 46211-[facility] Vital Signs Code Code System Vitals Name Values and Units Timing Information 8302-2 [facility] Height Value=70.0 Units=Inches 02/26/2023 94430-6 LOINC Weight Sdvpi=684.8 Units=Lbs 9279-1 [facility] Respiratory Rate Value=18.0 Units=/m in 02/25/2023 8462-4 [facility] Blood Pressure-Diastolic Value=68 Un its=mmHg 02/25/2023 8480-6 [facility] Blood Pressure-Systolic Rtxfe=443 Un its=mmHg 02/25/2023 8310-5 [facility] Body Temperature Value=98.3 Units= F 02/25/2023 8867-4 [facility] Heart rate Value=72.0 Units=/min 16150-7 [facility] O2 % BldC Oximetry Value=98.0 Units= % 02/25/2023 33213-6 [facility] Pain Level Value=0.0 02/25/2023
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
--- OUTSIDE RECORDS SUMMARY | 2024-06-05 07:43 | XMS_ITS | Clinical Summary ---
Author Organization [facility] Address [address] [place] [address] Care Team Providers Care Heating And Cooling Systems Engineer Name Role Phone None, Provider MD Primary Care Provider Unavaila ble Allergies No known active allergies Social History Tobacco Use Types Packs/Day Years Used Date Smoking Tobacco: Never Smokeless Tobacco: Never Tobacco Cessation:Counseling Given: Not Answered Alcohol Use Standard Drinks/Week Comments Yes 0 (1 standard drink = 0.6 oz pur e alcohol) Sex and Gender Information Value Date Recorded Sex Assigned at Not on file Legal Sex Male 5:31 PM CDT Gender Identity Not on file Sexual Orientation Not on file Last Filed Vital Signs Vital Sign Reading Time Taken Comments Blood Pressure 128/77 10/29/2023 3:54 PM CDT Pulse 86 10/29/2023 3:54 PM CDT Temperature 36.6 C (97.9 F) 10/29/2023 8:05 AM CDT Respiratory Rate 18 10/29/2023 3:54 PM CDT Oxygen Saturation 95% 10/29/2023 3:54 PM CDT Inhaled Oxygen Concentration - - Weight 74.3 kg (163 lb 12.8 oz) 024 11:39 AM CDT Height 162.6 cm (5' 4 ) 10/28/2023 11:3 9 AM CDT Body Mass Index 28.12 10/28/2023 11:39 AM CDT Plan of Treatment Health Maintenance Due Date Last Done Comments Colorectal Cancer Screening Colonoscopy (10 Years) 1948 Hepatitis C 1966 DTaP, Tdap and Td Vaccines ( 1 - Tdap) 07/18/1967 Pneumococcal Vaccine: 50+ Ye ars (1 of 1 - PCV) 1998 Zoster Vaccines (1 of 2) 1998 Annual Medicare Wellness Visit 2013 RSV Immunization or 60+ Years (1 - 1-dose 75+ series) 07/18/2023 COVID-19 Vaccine (2023-2 5 season) 2023 Meningococcal B Vaccine Aged Out No l onger eligible based on patient's age to complete this topic Meningococcal Vaccine Aged Out No genevieve ian eligible based on patient's age to complete this topic RSV Immunizations Under 20 Months Aged Out No longer eligible based on patient's age to complete this topic Insurance GENERIC MEDIC[place] [address] Care Teams Heating And Cooling Systems Engineer Relationship Specialty Start Date End Date None, Provider, PCP - General UNKNOWN PHYSICIAN SPECIALTY 10/28/23
--- OUTSIDE RECORDS SUMMARY | 2024-06-05 07:43 | XMS_ITS | Encounter Summary ---
Author Organization [facility] Address [address] [place] [address] Care Team Providers Care Special Makeup Fx Artist Instructor Name Role Phone Lexi Hoff MD Primary Care Provider No, Provider Unavailable Unavailable Kristel Guadalupe Unavailable Unavailable Encounter Details Date Type Department Care Team (Late st Contact Info) Description 10/13/2023 Documentation [facility] Social Work [address] [place] [id number] Tia Ross MSW Social History Tobacco Use Types Packs/Day Years Used Date Smoking Tobacco: Every Day Cigarettes 1 15 Smokeless Tobacco: Never Alcohol Use Standard Drinks/Week Comments Yes 0 (1 standard drink = 0.6 oz pur e alcohol) 1-2 pints hard liquor daily [facility] Utilities Answer Date Recorded In the past 12 months has [employer], gas, oil, or water [employer] threatened to shut off services in your [...] often do you attend chur ch or latter day services? Never 09/29/2023 Do you belong to any clubs o r organizations such as druze groups, unions, fraternal or athletic groups, or [...] place to sleep or slept in a intermediate (including now)? Patient declined 04/09/2023 Housing Stability [...] any time in the past 12 m [facility], were you homeless or living in a intermediate (including now)? Yes 09/29/2023 Personal Safety Answer Date Recorded Have you ever been in or are you currently in a harmful physical or emotional relationship or is someone making you feel afraid or unsafe? Patient unable to answer 09/29/2023 Sex and Gender Information Value Date Recorded Sex Assigned at Not on file Legal Sex Male 3:23 AM JEWELRY SALES REPRESENTATIVE Gender Identity Not on file Sexual Orientation Not on file documented as of this encounter Plan of Treatment Not on file documented as of this encounter Visit Diagnoses Not on filedocumented in this encounter Care Teams Special Makeup Fx Artist Instructor Relationship Specialty Start Date End Date Lexi Hoff MD [address] [place] [address] PCP - General Gastroenterology 04/14/22 No, Provider 04/11/22 Kristel Guadalupe Online Health And Fitness Coach Addiction Medicine 01/30/20 documented as of this encounter
--- OUTSIDE RECORDS SUMMARY | 2024-06-05 07:43 | XMS_ITS | Clinical Summary ---
Author Organization [facility] Address [address] [place] [address] Care Team Providers Care Body Press Operator Name Role Phone Lexi Hoff MD Primary Care Provider [phone] Source Comments [facility],non-owned Affiliates and Associated Physician Practices is amultiple site organization consisting of ambulatory clinics and hospital sitesin [place], [place], [place] and [place]. This disclosure is being madepursuant to the Care Everywhere program and may not contain all information available regarding this patient. Last updated 17.[employer] [facility] Allergies No known active allergies Medications * This document contains information received from the source organization and may not represent a complete record from that organization. * Be aware that medications may not be up to date on this document. Alwaysverify current medications with the patient. folic acid (Folvite) 1 MG tablet Take 1 (one) tablet by mouth once daily 30 tablet 4 Active multiple vitamins with iron tablet tablet Take 1 (one) tablet by mouth once daily 30 tablet 4 Active thiamine (Vitamin B-1) 100 MG tablet Take 1 (one) tablet by mouth once daily 30 tablet 4 Active vitamin D3 (Cholecalcifer ol) 25 MCG (1000 UNITS) tablet Take 1 (one) tablet by mouth once daily 30 tablet 4 Active busPIRone (Buspar) 5 MG tabletIndicati ons:Anxiety Disorder,Major Depressive Disorder Take 1 (one) tablet by mouth 3 times daily Reasons: Anxiety Disorder, Major Depressive Disorder 45 tablet 1 4 Active sertraline (Zoloft) 50 MG tabletIndicati ons:Major Depressive Disorder Take 1 (one) tablet by mouth once daily Reasons: Major Depressive Disorder 15 tablet 1 4 Active naltrexone (Revia) 50 MG tabletIndicati ons:Alcohol Use Disorder Take 1 (one) tablet by mouth once daily Reasons: Abuse or Misuse of Alcohol 15 tablet 1 4 Active OLANZapine, disintegrating , (ZyPREXA Zydis) 10 MG tabletIndicati ons:Schizophre pipo Take 1 (one) tablet by mouth at bedtime Reasons: Schizophrenia 15 tablet 1 4 Active Active Problems Patient Care Coordination No te Formatting of this note migh t be different from the original. THIS IS A [facility] PATIENT. Problem Noted Date Diagnosed Date Schizophrenia, unspecified type 11/11/2023 Fall, initial encounter 02/13/2023 Schizophrenia 02/20/2021 Alcohol withdrawal syndrome without complication 12/27/2019 Mental health-related complaint 12/27/2019 Suicidal ideation 07/06/2019 Anemia 10/24/2018 Overview (03/04/2019): Last Assessment & Plan: Patient states that noted stool light red Will repeat CBC in a.m. Check stool for occult blood Major depressive disorder, recurrent, moderate 1 Alcohol use disorder, severe, in early remission 12/07/2017 Nicotine dependence 12/07/2017 Acute cystitis with hematuria 05/24/2017 Overview (03/04/2019): Last Assessment & Plan: Patient was given dose of Rocephin in the ED. Will continue with IV Rocephin. Trend CBC and BMP daily Marijuana abuse 07/04/2013 Cognitive disorder 07/04/2013 Immunizations Immunization Administration Dates Next Due INFLUENZA VACCINE, QUADR. (F LUZONE; FLULAVAL; FLUARIX; AFLURIA QUADRIVALENT; 6MO+), 0.5 ML (IIV4) 12/07/2017 TDAP (7yrs+) 02/12/2023 Family History Medical History Relation Name Comments Diabetes Maternal Grandmother Diabetes Maternal Uncle Diabetes Mother Heart Failure Mother Hypertension Mother Depression Sister Relation Name Status Comments Maternal Grandmother Maternal Uncle Mother Sister Social History Tobacco Use Types Packs/Day Years Used Date Smoking Tobacco: Every Day Cigarettes 0.5 55.5 Started: 12/06/1970 Smokeless Tobacco: Never Tobacco Cessation:Ready to Q uit: Not Asked; Counseling Given: Not Answered Alcohol Use Standard Drinks/Week Comments Yes 0 (1 standard drink = 0.6 oz pure alcohol) 3 half pints of tequila and 12 beers a day AUDIT-C Answer Date Recorded Q1: How often do you have a drink containing alc ohol? 2-3 times a week 11/09/2023 Q2: How many drinks containi ng alcohol do you have on a typical day when you are drinking? 5 or 6 11/09/2023 Q3: How often do you have si x or more drinks on one occasion? Weekly 11/09/2023 Overall Financial Resource Strain (CARDIA) Answe r Date Recorded How hard is it for you to pa y for the very basics like food, housing, medical care, and heating? Very hard 11/12/2023 PHQ-2 Answer Date Recorded PHQ2 TOTAL SCORE 6 02/18/2021 [facility] - Occupational Stress Questionnaire Answer Date Recorded Do you feel stress - tense, restless, nervous, or anxious, or unable to sleep at night because your mind is troubled all the time - these days? Patient declined 11/12/2023 Hunger Vital Sign Answer Date Recorded Within the past 12 months, y ou worried that your food would run out before you got the money to buy more. Patient declined Within the past 12 months, t he food you bought just didn't last and you didn't have money to get more. Patient declined 05/2023 PRAPARE - Transportation Answer Date Re corded In the past 12 months, has l ack of transportation kept you from medical appointments or from getting medications? Patient declined 11/12/2023 In the past 12 months, has l ack of transportation kept you from meetings, work, or from getting things needed for daily living? Patient declined 11/12/2023 Housing Stability Vital Sign Answer Kenan e Recorded In the last 12 months, was t here a time when you were not able to pay the mortgage or rent on time? Yes 11/12/19 24 In the last 12 months, how many places have you lived? 1 11/12/2023 In the last 12 months, was t here a time when you did not have a steady place to sleep or slept in a mcc (including now)? Patient declined 11/12/2023 Sex and Gender Information Value Date Recorded Sex Assigned at Not on file Legal Sex Male 8:58 AM COMMUNITY MANAGER Gender Identity Not on file Sexual Orientation Not on file Last Filed Vital Signs Vital Sign Reading Time Taken Comments Blood Pressure 144/77 11/16/2023 9:00 AM CDT Pulse 77 11/16/2023 9:00 AM CDT Temperature 36.8 C (98.3 F) 11/16/2023 9:00 AM CDT Respiratory Rate 17 11/16/2023 9:00 AM CDT Oxygen Saturation 96% 11/16/2023 9:00 AM CDT Inhaled Oxygen Concentration 97% 06/18/2013 1 2:13 PM CDT Weight 71.7 kg (158 lb) 11/15/2023 8:22 PM CDT Height 177.8 cm (5' 10 ) 11/12/2023 6:00 PM CDT Body Mass Index 22.67 11/12/2023 6:00 PM CDT Plan of Treatment Health Maintenance Due Date Last Done Comments COLOGUARD (AGES 45-75) - COLON CA SCREENING 1948 COLON MONITORING 1948 COLONOSCOPY - COLON CA SCREENING 1948 CT COLONOGRAPHY - COLON CA SCREENING 1950 Colorectal Cancer Screening 1948 FIT - COLON CA SCREENING 1948 FLEX SIG - COLON CA SCREENING 1948 MEDICARE AWV 12 MONTHS 1948 PNEUMOCOCCAL VACCINE 50+ (1 of 2 - PCV) 07/18/1967 LUNG CANCER SCREENING 1998 ZOSTER VACCINE (1 of 2) 1998 HEPATITIS B VACCINE (1 of 3 - Risk 3-dose series) 2008 Respiratory Syncytial Virus (RSV) Vaccine Pt: or over 60 yrs (1 - 1-dose 75+ series) 07/18/2023 COVID-19 VACCINE (3 - season) 2023 07/25/2020, 06/27/2020 DEPRESSION SCREENING 02/09/2024 LIPID TESTING 07/08/2024 07/09/2019, 12/07/2017 INFLUENZA VACCINE (Season Ended) 2024 01/05/2023, 11/11/2022, 12/09/2020, Additional history exists DTAP/TDAP/TD VACCINES (2 - Td or Tdap) 02/12/2033 02/12/2023 HEPATITIS C SCREENING Completed 02/18/2023 , 02/17/2023, 02/17/2023, Additional history exists HIB VACCINE Aged Out No longer eligi ble based on patient's age to complete this topic HPV VACCINE Aged Out No longer eligi ble based on patient's age to complete this topic MENINGOCOCCAL (Group B) VACCINE SHARED DECISION-MAKING Aged Out No longer eligible based on patient's age to complete this topic MENINGOCOCCAL GROUPS A/C/Y/W VACCINE Aged Out No longer eligible based on patient's age to complete this topic Procedures Procedure Name Priority Date/Time Associated Diagnosis Comments HEPATITIS C RNA QUANTITATIVE AM Draw 02/18/2023 2:17 PM COMMUNITY MANAGER LIPID PROFILE Routine 07/09/2019 6:23 AM CDT from Last 3 Months or Most Recently Relevant to Health Maintenance Results * (ABNORMAL) HEPATITIS C RNA QUANTITATIVE (02/18/2023 2:17 PM COMMUNITY MANAGER) Hepatitis C Virus Quant by PCR, Blood 152,240(H ) Not detected IU/mL 02/22/2023 9:21 AM [facility] Hepatitis C RNA PCR, Interp Detected( A) Not detected 02/22/2023 9:21 AM [facility] Hepatitis C Quant by PCR, Log 5.2 log IU/mL 02/22/2023 9:21 AM [facility] Blood BLOOD SPECIMEN / Unknown Lab Venipuncture / Unknown 02/18/2023 2:17 PM COMMUNITY MANAGER 02/18/2023 2:58 PM COMMUNITY MANAGER Narrative [facility] - 02/22/2023 9:21 AM COMMUNITY MANAGER The Hepatitis C viral (HCV) RNA analysis utilized a serum sample, real-time reverse color maker dyer PCR, and is reported as Not Detected, Detected (<12 IU/mL), Quantity (IU/mL) or >30,000,000 IU/mL. The limit of quantitation of the assay is 12 IU/mL (100% of samples with this HCV RNA level were detected). The linear range is from 12 IU/mL to 30,000,000 IU/mL. Values less than 12 IU/mL are reported as Detected (<12 IU/mL). Values greater than 30,000,000 IU/mL are reported as >30,000,000 IU/mL. The detection/quantitation of HCV RNA in serum is based on the isolation of HCV RNA with reverse color maker dyer of genomic HCV RNA followed by real-time PCR in the presence of an unrelated RNA internal control. The internal control ensures that RNA is isolated, and that no general significant inhibitors of the RT-PCR process are present. The analysis was performed using a U.S. FDA approved test methodology. us Felipe Mejia ELECTRIC RAZOR ASSEMBLER-WELDER FITTER LAB - CHEMISTRY ORDERAB LES Final Result Performing Organization Address City/[facility]/ZIP Co de Phone Number [facility] [address] [place] [address], [facility] [phone] * LIPID PROFILE (07/09/2019 6:23 AM CDT) [facility] Signature Cholesterol 185 <200 mg/dL 07/09/2019 7:40 AM CDT [facility] Triglycerides 108 <150 mg/dL 07/09/2019 7:40 AM CDT [facility] HDL Cholesterol 43 >40 mg/dL 0 7:40 AM CDT [facility] LDL Calculated 120 <130 mg/dL 07/09/2019 7:40 AM CDT [facility] VLDL Calculated 22 <=30 mg/dL 0 7:40 AM CDT [facility] Chol HDL Ratio 4.3 <4.5 07/09/2019 7:40 AM CDT [facility] LDL/HDL Ratio 2.8 <5.0 07/09/2019 7:40 AM CDT [facility] Blood BLOOD SPECIMEN / Unknown Venipuncture / Unknown 07/09/2019 6:23 AM CDT 07/09/2019 7:03 AM CDT us Margot Floyd ELECTRIC RAZOR ASSEMBLER-WELDER FITTER LAB - CHEMISTRY ORDERA BLES Final Result Performing Organization Address City/[facility]/ZIP Co de Phone Number [facility] [address] [place] [address] from Last 3 Months or Most Recently Relevant to Health Maintenance Insurance MEDICARE MEDICAID - [facility] MEDICAID - [place] MEDICARE [facility] MEDICARE Advance Directives * Full Code (Latest Code Status on File) Date Activated Date Inactivated Comments 11/12/2023 3:09 PM 11/16/2023 2:40 PM * Full Code Date Activated Date Inactivated Comments 02/13/2023 1:52 AM 02/25/2023 5:30 PM * Full Code Date Activated Date Inactivated Comments 12/29/2019 12:03 PM 12/30/2019 2:57 PM * Full Code Date Activated Date Inactivated Comments 12/27/2019 9:07 PM 12/29/2019 8:24 AM * Full Code Date Activated Date Inactivated Comments 07/07/2019 5:06 AM 2019 1:16 PM Care Teams Body Press Operator Relationship Specialty Start Date End Date Lexi Hoff MD [address] [place] [address] PCP - General Gastroenterology 03/30/18
--- OUTSIDE RECORDS SUMMARY | 2024-06-05 07:43 | XMS_ITS | Clinical Summary ---
Author Organization [facility] Address [address] [place] [address] Care Team Providers Care Advertising Photographer Name Role Phone Lexi Hoff MD Primary [...] 03/24/2023 Assessment & Plan (03/25/2023 1:55 PM SENIOR PRODUCT ENGINEER): - Endorsing R wrist and R arm pain with OT 03/24 - XR R forearm, R wrist ordered --> no fracture Fracture of multiple ribs of left side Assessment & Plan (04/06/2023 1:36 PM SENIOR PRODUCT ENGINEER): #Subacute to chronic left side rib fracture [...] (04/19): no DVT noted - F/U with [facility] Trauma clinic as needed Acute blood loss anemia 03/22/2023 Assessment & Plan (04/13/2023 12:14 PM SENIOR PRODUCT ENGINEER): - Hgb 10.9 on admission - Hgb trend 10.9-7.1-5.6-5.9-6.9-8.8-8.3-8.4-8.2-7.6-9.6-8.5 - 03/22: Hgb 5.9, recheck 5.9, 2 units PRBCs transfused, 8.8 on recheck - 03/23-03/25 hgb stable - 03/30: Hgb 9.6 (7.6) - 03/31: Hgb 8.5 - 04/09: Hgb 9.7 - Hgb (/): 9.1g/dL - Hgb (04/12): 8.9g/dL Compression fracture of T7 vertebra 03/22/2023 Assessment & Plan (03/22/2023 10:42 AM SENIOR PRODUCT ENGINEER): #Age indeterminate T7 vertebral body compression deformity [...] 03/22/2023 Assessment & Plan (03/22/2023 11:31 AM SENIOR PRODUCT ENGINEER): #Schizophrenia #Anxiety #Depression - Continue home Buspar, Zoloft, Zyprexa Discharge planning issues 03/22/2023 Assessment & Plan (04/29/2023 2:05 PM CDT): 03/24: Maintain danielle wrap to pelvis/thigh until 03/25. PT/OT recommending IPR. 03/25 Patient is medically stable for discharge, SW/CM updated. [place] IPR referrals to be made today 03/26 [place] SNFs 03/31-04/08: Patient is medically stable for discharge, SW/CM updated. Discharge pending facility acceptance through [place] 04/11: Patient is medically stable for discharge, SW/CM updated. Discharge pending facility acceptance 04/12: Patient is medically stable for discharge, SW/CM updated. Discharge pending facility acceptance 04/16-04/17: Patient is medically stable for discharge, SW/CM updated. Discharge pending facility acceptance through [place] 04/18: Patient is medically stable for discharge, SW/CM updated. Discharge pending facility acceptance through [place] 04/19-04/20: Patient is medically stable for discharge, SW/CM updated. Discharge pending facility acceptance through [place] 04/22: patient refused to go to [facility], patient refused to go on ambulance for transfer. Patient remains medically stable for discharge to facility 04/23: medically stable for discharge, would like to discharge to [place] [facility] 04/25: Patient is medically stable for [...] 10/24/2018 Assessment & Plan (03/30/2023 3:19 PM SENIOR PRODUCT ENGINEER): - Ethanol 196 on admission - Reports [...] completing the plan including access to the Hemoteqcrystal medications. Sister had removed the come from [...] 03/22/2023 Assessment & Plan (03/20/2023 7:41 PM SENIOR PRODUCT ENGINEER): - nontender, denies pain - wean O2 as able - encourage IS Immunizations Immunization Administration Dates Next Due Tdap 10/13/2022 Surgical History Surgery Date Site/Laterality Comments NO PAST SURGERIES Medical History Medical History Date Comments Paranoid schizophrenia (HCC) Depression Anxiety Alcohol abuse Bipolar disease, chronic (HCC) Social History Tobacco Use Types Packs/Day Years Used Date Smoking Tobacco: Every Day Cigarettes 1 15 Smokeless Tobacco: Never Tobacco Cessation:Ready to Q uit: Not Asked; Counseling Given: Not Answered Alcohol Use Standard Drinks/Week Comments Yes 0 (1 standard drink = 0.6 oz pur e alcohol) 1-2 pints hard liquor daily [facility] Utilities Answer Date Recorded In the past 12 months has [employer], gas, oil, or water [employer] threatened to shut off services in your [...] often do you attend chur ch or scientology services? Never 09/29/2023 Do you belong to any clubs o r organizations such as presybeterian groups, unions, fraternal or athletic groups, or [...] place to sleep or slept in a care home (including now)? Patient declined 04/09/2023 Housing Stability [...] any time in the past 12 m [facility], were you homeless or living in a care home (including now)? Yes 09/29/2023 Personal Safety Answer Date Recorded Have you ever been in or are you currently in a harmful physical or emotional relationship or is someone making you feel afraid or unsafe? Patient unable to answer 09/29/2023 Sex and Gender Information Value Date Recorded Sex Assigned at Not on file Legal Sex Male 3:23 AM SENIOR PRODUCT ENGINEER Gender Identity Not on file Sexual Orientation Not on file Obstetrics History Last Filed Vital Signs Vital Sign Reading [...] 09/29/2023 7:54 AM CDT Plan of Treatment Health Maintenance Due Date Last Done Comments Colon Cancer Screening-Colonoscopy 1948 Depression Screening 1948 Hepatitis B Screening 1966 Zoster Vaccine (1 of 2) 1998 Well Visit 65+ 2013 Pneumococcal vaccine 65+ (2 of 2 - PPSV23) 10/26/2018 08/31/2018 Influenza Vaccine (Season Ended) 2024 12/08/19 Fall Risk Assessment 10/12/2024 10/13/2023 DTaP/Tdap/Td Vaccine (3 - Td or Tdap) 02/12/2033 02/12/2023, 10/13/2022 Hepatitis C Screening Completed 04/13/2022 , 04/12/2022, 05/23/2017, Additional history exists Abdominal Aortic Aneurysm (A AA) Screen Completed 03/25/2023, 03/22/2023, 03/19/2023, Additional history exists Procedures Procedure Name Priority Date/Time Associated Diagnosis Comments CTA ABDOMINAL AORTA AND BILATERAL ILIOFEMORAL RUNOFF ED Urgent/IP Urgent 03/25/2023 10:54 AM SENIOR PRODUCT ENGINEER HEPATITIS C RNA, QUANTITATIVE, PCR Routine 04/13/2022 5:40 AM SENIOR PRODUCT ENGINEER from Last 3 Months or Most Recently Relevant to Health Maintenance Results * CTA Abdominal Aorta And Bilateral Iliofemoral Runoff (03/25/2023 10:54 AM SENIOR PRODUCT ENGINEER) Anatomical Region Laterality Modality Body Bilateral Computed Tomogra phy 03/25/2023 11:2 3 AM SENIOR PRODUCT ENGINEER Impressions 03/26/2023 9:23 AM SENIOR PRODUCT ENGINEER 1. No change in size of a [...] Parra M.D., Ph.D Narrative 03/26/2023 9:23 AM SENIOR PRODUCT ENGINEER EXAMINATION: CT ANGIOGRAPHY OF THE ABDOMEN, PELVIS, [...] Electronically signed by: Armand Parra M.D., Ph.D Armand Marion MD IMG CT PROCEDURES Katelin l Result * (ABNORMAL) Hepatitis C (HCV) RNA PCR, quantitative (04/13/2022 5:40 AM SENIOR PRODUCT ENGINEER) [facility] Signature HCV RNA result Detected( A) [facility] Comment: The quantifiable range of this assay is 15 IU/mL to 100,000,000 IU/mL (1.18 log IU/mL to 8.00 log IU/mL). Testing was performed by the [employer] HCV Test ([employer] Testing performed at [facility] Current Interpretive Data was last revised on 2020 HCV RNA IU/mL 3,250,000 IUnits/mL [facility] HCV RNA log IU/mL 6.51 log IUnits/mL [facility] Blood 04/13/2022 5:40 AM SENIOR PRODUCT ENGINEER 04/13/2022 6:24 AM SENIOR PRODUCT ENGINEER us Rod Velasquez MD LAB MICROBIOLOGY - GENERAL ORDERABLES Final Result [facility] Department [place] [address] from Last 3 Months or Most Recently Relevant to Health Maintenance Insurance MEDICARE HMO [facility] MEDICARE HMO PPO [facility] MEDICARE HMO Advance Directives For more information, please contact: [phone] * Full Code (Latest Code Status on [...] 11:40 PM 10/29/2017 9:05 PM Care Teams Advertising Photographer Relationship Specialty Start Date End Date Lexi Hoff MD [address] [address] PCP - General Gastroenterology 04/14/22 No, Provider 04/11/22 Kristel Guadalupe [facility] 01/30/20
[2024-06-05] MEDS: SODIUM CHLORIDE 0.9% IV 1,000 ML 999 ML IV CONT (08:03)
[2024-06-05 08:13] LABS: Hematocrit 38.1 % (42.0-52.0); Immature Platelet Fraction Pct 4.6 % (0.9-11.2); Mean Corpuscular HGB Conc 31.5 g/dl (32-36); Mean Platelet Volume 10.8 fl (7.4-10.4); Platelet Count Result 97 k/mm3 (150-375); Red Blood Count 4.14 M/mm3 (4.6-6.20); Red Cell Distribution Width 14.1 % (11.5-14.5); White Blood Count 4.7 K/mm3 (4.5-10.0)
[2024-06-05 08:30] LABS: Ethanol < 10 mg/dL (<10)
[2024-06-05 08:35] LABS: Band Neutrophils Percent 0 % (0-6)
[2024-06-05 08:36] LABS: Atypical Lymphocytes Present; Platelet Estimate Slightly Decreased (Adequate); Schistocytes None Seen
[2024-06-05 09:29] LABS: Alanine Aminotransferase 57 U/L (6-50); Albumin Level 4.3 g/dL (3.5-5.1); Alkaline Phosphatase 190 U/L (38-126); Anion Gap 14 mmol/L (4-12); Aspartate Amino Transferase 78 U/L (17-59); Bilirubin,Total 0.9 mg/dL (0.2-1.3); Blood Urea Nitrogen 17 mg/dL (9-20); Calcium 9.4 mg/dL (8.4-10.2); Carbon Dioxide 24 mmol/L (22-30); Chloride 108 mmol/L (98-107); Estimated CRCL calculation 76 ml/min; Estimated Glomerular Filt Rate > 60; Glucose 112 mg/dL (65-110); Potassium 4.4 mmol/L (3.4-5.0); Sodium 146 mmol/L (137-145)
[2024-06-05 10:26] LABS: Add Urine Microscopic? NO; Appearance Urine Clear (Clear); Bilirubin Urine Negative (Negative); Blood Urine Negative (Negative); Color Urine Yellow (Yellow); Glucose Urine UA Negative (Negative); Ketones Urine Negative (Negative); Leukocyte Esterase Ur Negative LEU/UL (Negative); Nitrate Urine Negative (Negative); Protein Urine Negative (Negative); Specific Grav Ur 1.005 (1.001-1.035)
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
--- NOTE | 2024-06-05 11:30 | PC.NURSE ---
Pt has no ride to go home, all numbers at contact information list are disconnected. restorative coordinator contacted to assisted.
== END 2024-06-05 11:59 | disposition home or self-care (01) ==
PROVIDERS: Emergency Provider Emergency Medicine; PCP Internal Medicine Gastroenterology
DX: M25.552 Pain in left hip (principal); G89.21 Chronic pain due to trauma; F43.12 Post-traumatic stress disorder, chronic; F32.A Depression, unspecified; Y37.90XS Military operations, unspecified, sequela
CPT/HCPCS: 36415; 73502; 80053; 81003; 82077; 85025; 85055; 96360; 99283; J7030

== ENCOUNTER 2024-10-08 00:55 | Emergency (ER) | payer OTHER, MEDICARE, MEDICAID, SELFPAY ==
[2024-10-08] VITALS (9 sets, daily range): BP systolic 100–126; BP diastolic 55–80; PULSE 66–80; RESP 13–18; TEMP 36.1; O2SAT 92–98
--- NOTE | ~2024-10-08 | CT_ITS ---
EXAMINATION: CT brain wo con DATE: 10/08/2024 01:48 INDICATION: Altered mental status TECHNIQUE: Computed tomography (CT) of the head was performed without intravenous contrast. Sagittal and coronal reconstructions were performed. The mA was adjusted according to patient size. Iterative reconstruction technique was employed. The dose-length product was 908.00 mGy-cm. COMPARISON: head CT dated 11/27/2023 FINDINGS: Moderate-sized region of chronic encephalomalacia at the anteroinferior medial left frontal lobe an additional small region of encephalomalacia along the anteroinferior left frontal lobe which could represent either sequela old infarct or trauma. No acute intracranial hemorrhage, acute infarction or ab normal extra axial fluid collection. There is moderate scattered white matter hypoattenuation consistent with chronic small vessel ischemic disease. Symmetric prominence of the sulci consistent with moderate age-appropriate diffuse cerebral volume loss. Ventricles are normal and symmetric. 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 No other mass/mass effect. Mild mucosal thickening in the left maxillary and bilateral ethmoid sinuses. Intracranial calcified cerebral atherosclerosis is noted. The orbits and mastoid air cells are normal. Chronic left nasal bone fracture. IMPRESSION: 1. No acute intracranial process. 2. Stable appearance of a moderate-sized region of encephalomalacia in the anterior left frontal lobe and small region of the anterior right frontal lobe which could represent sequela prior infarct or trauma. 3. Age-related changes. Moderate diffuse on loss and moderate scattered white matter hypoattenuation consistent with chronic small vessel ischemic disease. 4. 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 Reviewed, dictated and finalized at location A. IMPRESSION: 1. No acute intracranial process. 2. Stable appearance of a moderate-sized region of encephalomalacia in the ante rior left frontal lobe and small region of the anterior right frontal lobe whic h could represent sequela prior infarct or trauma. 3. Age-related changes. Moderate diffuse on loss and moderate scattered white m atter hypoattenuation consistent with chronic small vessel ischemic disease. 4. Stable appearance since 04/15/2021 of a 2.2 x 1.1 cm extradural left occipital mass with chronic erosion of the underlying inner table of the skull which giv en interval stability favors a benign lesion most likely a giant arachnoid gran ulation with differential including hemangioma, epidermoid cyst or meningioma.
--- NOTE | ~2024-10-08 | CT_ITS ---
EXAMINATION: CT cervical spine wo con DATE: 10/08/2024 01:48 INDICATION: Fall. Altered mental status. TECHNIQUE: Computed tomography (CT) of the cervical spine was performed without intravenous contrast. Automated exposure control and iterative reconstruction technique were employed. The dose-length product was 282.79 mGy-cm. COMPARISON: 08/31/2023 FINDINGS: Mild reversal of the normal lordosis in the lower cervical spine. Severe osteoarthritis at the atlantoaxial articulation. Vertebral body heights are normal. No acute fracture. Severe disc height loss at C3-C4, C5-C6 and C6-C7. There are prominent anterior osteophytes at multiple levels, bridging at C5-C7 and nearly bridging at C2-C3 through C4-C5 and at C7-T1 consistent with diffuse idiopathic skeletal hyperostosis (DISH). There is also bridging across the uncovertebral joints on the left at C5-6 and bilaterally at C6-C7. Additional severe bilateral uncovertebral osteoarthritis at C3-C4. Moderate osteoarthritis at the left C4-C5 facet joint and mild osteoarthritis at the remaining cervical facet and uncovertebral joints. Small posterior disc osteophyte complex contributing to mild central canal stenosis at C3-C4. Moderate neural foraminal stenosis on the left at C3-C4 and mild neural from stenosis at many of the remaining cervical levels. Cervical soft tissues are unremarkable. Mild dependent atelectasis in the visualized upper lungs. IMPRESSION: 1. Stable appearance of severe cervical spondylosis. No acute osseous abnormality. Reviewed, dictated and finalized at location A. IMPRESSION: 1. Stable appearance of severe cervical spondylosis. No acute osseous abnormali ty.
--- NOTE | ~2024-10-08 | XR_ITS ---
XR ankle LT min 3V, XR knee LT 3V 10/08/2024 01:37 Indication: Left knee and ankle pain after fall Procedure: 3 views left ankle and 4 views left knee Comparison: No prior studies for comparison. Findings: There are healed proximal diaphyseal fractures of the proximal tibia and fibula. Ankle mortise intact. Mild osteoarthritis of the left knee. Talar dome is normal. There is a joint effusion of the knee. No acute fracture or traumatic malalignment. Impression: 1: No acute fracture. 2: Moderate knee effusion. 3: Healed proximal tibial and fibular diaphyseal fractures with callus formation. Reviewed, dictated and finalized at location O. Impression: 1: No acute fracture. 2: Moderate knee effusion. 3: Healed proximal tibial and fibular diaphyseal fractures with callus formatio n. Impression: 1: No acute fracture. 2: Moderate knee effusion. 3: Healed proximal tibial and fibular diaphyseal fractures with callus formatio n.
--- NOTE | ~2024-10-08 | XR_ITS ---
XR chest 1V 10/08/2024 01:37 Indication: Altered mental status Procedure: Chest Comparison: Comparison to multiple prior studies sequentially, with oldest reviewed study dated 02/22/2021. Findings: Heart size normal. No focal air space disease, pulmonary edema, pleural effusion or suspected pneumothorax. No acute osseous abnormality. Impression: 1: No acute cardiopulmonary disease. Reviewed, dictated and finalized at location O. Impression: 1: No acute cardiopulmonary disease.
--- NOTE | ~2024-10-08 | XR_ITS ---
XR hip LT 2V w AP pelvis 10/08/2024 01:37 Indication: Left hip pain after fall Procedure: AP pelvis and 2 views left hip Comparison: 07/30/2021 Findings: There is a side plate and screws transfixing the left acetabulum. Pelvic rings intact. Sacral foramen are symmetric. 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 There is a side plate and screws transfixing the left acetabulum. There is lower lumbar spondylosis. Impression: 1: No acute bone or joint abnormality. Reviewed, dictated and finalized at location O. Impression: 1: No acute bone or joint abnormality.
--- NOTE | 2024-10-08 01:06 | ECG_ITS ---
Test Date: 2024-10-08 01:55:44 Measurements Intervals [place] Rate: 71 P: 66 UT: 155 QRS: 7 QRSD: 96 T: 55 QT: 446 QTc: 485 Interpretive Statements SINUS RHYTHM INCOMPLETE RIGHT BUNDLE BRANCH BLOCK BORDERLINE T WAVE ABNORMALITY- ANTERIOR LEADS BASELINE ARTIFACT- I, II, III, AVR, AVL, V1-V6 BORDERLINE ECG No previous ECG available for comparison Electronically Signed On 10-08-2024 07:18:52 CDT by Eron Suarez D.O.
[2024-10-08] MEDS: SODIUM CHLORIDE 0.9% IV 1,000 ML 999 ML IV CONT ×2 (01:11→02:49)
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
[2024-10-08 01:22] LABS: Hematocrit 41.0 % (42.0-52.0); Hemoglobin 13.7 g/dL (14.0-18.0); Immature Granulocyte Percent A 0.4 % (0-0.5); Immature Platelet Fraction Pct 7.3 % (0.9-11.2); Lymphocytes Absolute Auto 2.92 K/mm3 (0.9-3.2); Mean Corpuscular HGB Conc 33.4 g/dl (32-36); Mean Corpuscular Hemoglobin 30.1 pg (26-34); Mean Corpuscular Volume 90.1 fl (80-100); Nucleated Red Blood Cells Absolute Auto 0.000 K/mm3 (0.0-0.012); Nucleated Red Blood Cells Perc 0.0 % (0.0-0.2); Platelet Count Result 137 k/mm3 (150-375); Red Blood Count 4.55 M/mm3 (4.6-6.20); White Blood Count 7.8 K/mm3 (4.5-10.0)
[2024-10-08 01:36] LABS: Alanine Aminotransferase 79 U/L (6-50); Albumin Level 4.7 g/dL (3.5-5.1); Alkaline Phosphatase 168 U/L (38-126); Anion Gap 14 mmol/L (4-12); Aspartate Amino Transferase 112 U/L (17-59); Bilirubin,Total 0.7 mg/dL (0.2-1.3); Blood Urea Nitrogen 25 mg/dL (9-20); Calcium 8.5 mg/dL (8.4-10.2); Carbon Dioxide 23 mmol/L (22-30); Chloride 103 mmol/L (98-107); Estimated CRCL calculation 70 ml/min; Estimated Glomerular Filt Rate > 60; Glucose 112 mg/dL (65-110); Magnesium 1.8 mg/dL (1.6-2.3); Potassium 3.8 mmol/L (3.4-5.0); Sodium 140 mmol/L (137-145); Total Protein 8.9 g/dL (6.3-8.2)
--- NOTE | 2024-10-08 01:37 | PC.NURSE ---
Pt c/o L leg pain x2 days. This RN removed patients shoe and sock. Sock was adhered to the patients foot in multiple spots, pulling some skin from the foot. Revealed malodorous ulceration to foot. +edema. +PMS
[2024-10-08 01:47] LABS: Troponin I < 0.012 ng/mL (0.000-0.034)
--- OUTSIDE RECORDS SUMMARY | 2024-10-08 02:05 | XMS_ITS | Encounter Summary ---
Author Organization [facility] Healthcare Address [address] [place] [address] Care Team Providers Care Manager Financial Services Name Role Phone Lexi Hoff MD Primary Care Provider No, Provider Unavailable Unavailable Kristel Guadalupe Unavailable Unavailable Unknown, Notinfile Primary Care Provider Unavail able Unknown, Notinfile Primary Care Provider Unavail able Encounter Details Date Type Department Care Team (Late st Contact Info) Description 10/13/[address] [facility] Social Work [address] [place] [address] [place] [address] Tia Ross MSW Social History Tobacco Use Types Packs/Day Years Used Date Smoking Tobacco: Every Day Cigarettes 1 15 Smokeless Tobacco: Never Alcohol Use Standard Drinks/Week Comments Yes 0 (1 standard drink = 0.6 oz pur e alcohol) 1-2 pints hard liquor daily [facility] Utilities Answer Date Recorded In the past 12 months has frents electric, gas, oil, or water company threatened to shut off services in your home? No 09/29/2023 Social Connection and Isolation Panel Answer Date Recorded In a typical week, how many times do you talk on the phone with family, friends, or neighbors? Twice a week 09/29/2023 How often do you get togethe r with friends or relatives? Three times a week 09/29/2023 How often do you attend formerly [facility] or congregation services? Never 09/29/2023 Do you belong to any clubs o r organizations such as jehovah's witness groups, unions, fraternal or athletic groups, or [...] place to sleep or slept in a snf (including now)? Patient declined 04/09/2023 Housing Stability [...] any time in the past 12 [facility], were you homeless or living in a snf (including now)? Yes 09/29/2023 Personal Safety Answer Date Recorded Have you ever been in or are you currently in a harmful physical or emotional relationship or is someone making you feel afraid or unsafe? 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 Gender Identity Not on file Sexual Orientation Not on file documented as of this encounter Plan of Treatment Not on file documented as of this encounter Visit Diagnoses Not on filedocumented in this encounter Care Teams Manager Financial Services Relationship Specialty Start Date End Date Lexi Hoff MD [address] [place], [place] [id number] PCP - General Gastroenterology 04/14/22 06/12/24 Unknown, Notinfile PCP - General 06/13/24 09/02/24 Unknown, Notinfile PCP - General 09/03/24 No, Provider 04/11/22 Kristel Guadalupe Locomotive Firer Addiction Medicine 01/30/20 documented as of this encounter
--- OUTSIDE RECORDS SUMMARY | 2024-10-08 02:05 | XMS_ITS ---
Author Organization [employer] [facility] Support Name Relationship Address Phone ALBERTO PEDRAZA Emergency Contact [address] [place] [address] ROBINARIAN Emergency Contact Unknown [phone] Mental Status Section Date Assessment Total Score Description 01/05/2014 BIMS 15 cognitively int act PHQ-9 00 Reason for Referral No Reasons for Referral Entered Social History Social History Observation Description Start Date End Date Code Code System Current Smoking Status Tobacco smoking consumption unknown [id number] SNOMED CT Sex Assigned At Male 1950 [address]-6 [facility] Gender Identity
--- OUTSIDE RECORDS SUMMARY | 2024-10-08 02:05 | XMS_ITS | Clinical Summary ---
Author Organization [facility] Address [address] [place] [address] Phone Care Team Providers Care Electrical Design Technician Name Role Phone Provider, None Primary Care Provider Unavailabl e Allergies No known active allergies Medications No known medications Social History Tobacco Use Types Packs/Day Years Used Date Smoking Tobacco: Every Day Cigarettes Smokeless Tobacco: Never Tobacco Cessation:Ready to Q uit: Not Asked; Counseling Given: Not Answered Alcohol Use Standard Drinks/Week Comments Yes 0 (1 standard drink = 0.6 oz pur e alcohol) occasionally Sex and Gender Information Value Date Recorded Sex Assigned at Not on file Legal Sex Male 8:49 PM CDT Gender Identity Not on file Sexual Orientation Not on file Last Filed Vital Signs Vital Sign Reading Time Taken Comments Blood Pressure 127/65 06/30/2024 3:15 PM CDT Pulse 85 06/30/2024 3:15 PM CDT Temperature 37 C (98.6 F) 06/30/2024 1:10 PM CDT Respiratory Rate 18 06/30/2024 1:10 PM CDT Oxygen Saturation 94% 06/30/2024 3:15 PM CDT Inhaled Oxygen Concentration - - Weight 74.8 kg (165 lb) 06/30/2024 1:10 PM CDT Height 177.8 cm (5' 10) 06/30/2024 1:10 PM CDT Body Mass Index 23.68 06/30/2024 1:10 PM CDT Plan of Treatment Health Maintenance Due Date Last Done Comments Zoster Immunization (1 of 2) 1998 Pneumococcal Immunization (5 0+ years) (2 of 2 - PPSV23, PCV20, or PCV21) 10/26/2018 08/31/2018 Respiratory Syncytial Virus (RSV) Immunization (Adult) (1 - 1-dose 75+ series) 07/18/2023 SARS-COV-2 Immunization ( - 2023-25 season) 2023 Influenza Immunization (#1) 10/09/202412/10, 11/11/2022, 12/07/2017 Hepatitis C Virus (HCV) Screening Completed 04/13/2022 TdaP Immunization Completed 03/17/2023, 02/12/2023, 10/13/2022 Hepatitis B Immunization Aged Out No longer eligible based on patient's age to complete this topic Human Papillomavirus (HPV) Immunization Aged Out No longer eligible b ased on patient's age to complete this topic Meningococcal Immunization (ACWY) Aged Out No longer eligible b ased on patient's age to complete this topic Rotavirus Immunization Aged Out No lo nger eligible based on patient's age to complete this topic Insurance MEDICAID [place] OUT OF [facility] [address] Care Teams Electrical Design Technician Relationship Specialty Start Date End Date Provider, None [place] PCP - General 05/13/19
[2024-10-08 02:20] LABS: Creatine Kinase 327 U/L (55-170)
[2024-10-08 02:53] LABS: Add Urine Microscopic? NO; Appearance Urine Clear (Clear); Glucose Urine UA Negative (Negative); Leukocyte Esterase Ur Negative LEU/UL (Negative); Nitrate Urine Negative (Negative); Specific Grav Ur 1.008 (1.001-1.035)
--- NOTE | 2024-10-08 03:53 | PC.NURSE ---
Repeat lactic obtained, sent to lab. Patient asleep on stretcher, remains on full monitor. VS as charted. Call light in reach
--- NOTE | 2024-10-08 04:59 | PC.NURSE ---
Patient urinated large amount of urine on the floor and on himself. Patient cleaned of urine saturated clothes, new gown and linens. Patient placed on male purewick. Patient remains heavily impaired. Remains on full monitor, VS as charted.
--- NOTE | 2024-10-08 13:07 | PC.NURSE ---
ATTEMPTED TO CALL MULTIPLE NUMBERS LISTED IN CHART FOR HIS SIBLINGS. LEFT ONE MESSAGE ON ANSWERING MACHINE FOR ANNITA TAVERA WHO LIVES IN [place] AND PT STATES HE IS CURRENTLY LIVING WITH HER. THE OTHER 2 NUMBERS ARE DISCONNECTED. PT'S CELL PHONE NUMBER IS ALSO DISCONNECTED.
== END 2024-10-08 14:35 | disposition home or self-care (01) ==
PROVIDERS: Emergency Provider Emergency Medicine; PCP Internal Medicine Gastroenterology
DX: F10.120 Alcohol abuse with intoxication, uncomplicated (principal); M25.552 Pain in left hip; Y90.8 Blood alcohol level of 240 mg/100 ml or more; W18.30XA Fall on same level, unspecified, initial encounter; F17.210 Nicotine dependence, cigarettes, uncomplicated
CPT/HCPCS: 36415; 70450; 71045; 72125; 73502; 73562; 73610; 80053; 81003; 82077; 82550; 83605; 83735; 84484; 85025; 85055; 93005; 96360; 96361; 99284; J7030